=== PATIENT | female | born 1950 | race Caucasian/White ===

== ENCOUNTER → 2019-03-21 09:38 | Outpatient (CLI) | payer OTHER, SELFPAY ==
--- NOTE | ~2019-03-21 | DEXA_ITS ---
Bone Density Report Name: Jayda Lindsey Age: 69 Sex: Female Ethnicity: White Date of : 1950 Indication: postmenopausal; screening for osteoporosis; asthma or emphysema; hysterectomy; Referring Provider: JOSE DESIR Study: Bone densitometry was performed. Exam Date: March 21, 2019 Accession number: [id number] Bone Density: Region BMD T-score Z-score Classification AP Spine (L1-L4) 0.957 -0.8 1.1 Normal Femoral Neck (Left) 0.784 -0.6 1.0 Normal Total Hip (Left) 0.911 -0.3 1.1 Normal Femoral Neck (Right) 0.761 -0.8 0.8 Normal Total Hip (Right) 0.935 -0.1 1.3 Normal Total Hip Mean 0.923 -0.2 1.2 Normal World Health Organization criteria for BMD impression classify patients as: Normal (T-score at or above -1.0), Osteopenia (T-score between -1.0 and -2.5), or Osteoporosis (T-score at or below -2.5). 10-year Fracture Risk: FRAX not reported because: All T-scores for Spine Total, Hip Total, Femoral Neck at or above -1.0 Clinical Information Provided by Patient: Has used the following medications: Vitamin D, Calcium Has the following medical conditions: Asthma or Emphysema, Hysterectomy, STAGE 3 KIDNEY DISEASE Patient maximum height was 65 Menopause Age: 39 No regular weight bearing exercise Drinks caffeinated beverages Onset of menses at age 13 Number of children 1 Impression: The patient has normal bone mass. Discussion: BONE DENSITY IS ABOVE THE MINIMUM DESIRABLE LEVEL AT ALL SKELETAL SITES TESTED. This patient?s bone mineral density is above the minimum desirable level (T-score -1.0 or better) at all sites measured. The patient should follow a healthful lifestyle (good nutrition with adequate calcium and vitamin D, and appropriate weight-bearing exercise). Follow-Up: Consider repeating this study in 5 years or sooner if there is some new clinical indication. Reported by: RAFAEL on 03/21/2019 10:06:00 AM. Reviewed, dictated and finalized at location [facility]
== END ==
PROVIDERS: PCP Internal Medicine; Visit Provider Obstetrics & Gynecology
DX: Z78.0 Asymptomatic menopausal state (principal)
CPT/HCPCS: 77080

== ENCOUNTER → 2020-03-13 06:51 | Outpatient (CLI) | payer OTHER, SELFPAY ==
[2020-03-13 11:39] LABS: Influenza Control Positive
== END ==
PROVIDERS: PCP Internal Medicine; Visit Provider Nurse Practitioner
DX: R05 Cough (principal)
CPT/HCPCS: 87804

== ENCOUNTER → 2020-03-17 17:21 | Outpatient (CLI) | payer OTHER, SELFPAY ==
--- NOTE | ~2020-03-17 | MM_ITS ---
EXAMINATION: MM scrn dario implant BI w cole HISTORY: Screening mammogram TECHNIQUE: Craniocaudal and mediolateral oblique 3-D tomosynthesis images with implant displacement a nd synthetic 2-D images were generated. Craniocaudal and mediolateral oblique views of the breasts wi thout implant displacement were obtained using full field digital mammography. CAD analysis was submi tted and interpreted. COMPARISON: No prior mammogram is available for comparison at this institution. BREAST PARENCHYMAL COMPOSITION: There are scattered areas of fibroglandular density. FINDINGS: There is no evidence of suspicious mass, calcification, or architectural distortion to sugg est malignancy in either breast. IMPRESSION: 1. No mammographic evidence of malignancy. 2. Recommend routine screening mammography in one year. BI-RADS Category 1: Negative Reviewed, dictated and finalized at location A. K [employer]
== END ==
PROVIDERS: PCP Internal Medicine; Visit Provider Obstetrics & Gynecology
DX: Z12.31 Encounter for screening mammogram for malignant neoplasm of breast (principal)
CPT/HCPCS: 77063; 77067

== ENCOUNTER 2020-03-25 08:58 | Outpatient (CLI) | payer OTHER, SELFPAY ==
--- NOTE | 2020-03-25 11:30 | NEURO_ITS ---
Impression: # Complains of numbness of arms and legs. # Evolving bilateral Carpal Tunnel Syndrome. # No ulnar neuropathy. # Normal nerve conduction study otherwise in upper and lower extremities. # Normal needle/EMG exam without any neurogenic changes noted. # Clinical correlation recommended. Nerve Conduction Studies Anti Sensory Summary Table Stim Site NR Peak (ms) P-T Amp (?V) Site1 Site2 Delta-P (ms) Dist (cm) Bernard (m/s) Left Median Anti Sensory (2-3nd Digit) Wrist 3.6 22.7 Wrist 2-3nd Digit 3.6 14.0 39 Wrist 3.5 45.2 Wrist 2-3nd Digit 3.6 14.0 39 Right Median Anti Sensory (2-3nd Digit) Wrist 3.2 30.5 Wrist 2-3nd Digit 3.2 14.0 44 Wrist 3.2 19.1 Wrist 2-3nd Digit 3.2 14.0 44 Left Radial Anti Sensory (Base 1st Digit) Wrist 2.1 26.6 Wrist Base 1st Digit 2.1 0.0 Right Radial Anti Sensory (Base 1st Digit) Wrist 2.7 9.1 Wrist Base 1st Digit 2.7 0.0 Left Sup Fibular Anti Sensory (Ant Lat Mall) 14 cm 3.8 25.8 14 cm Ant Lat Mall 3.8 16.0 42 Right Sup Fibular Anti Sensory (Ant Lat Mall) 14 cm 3.6 17.1 14 cm Ant Lat Mall 3.6 16.0 44 Left Sural Anti Sensory (Lat Mall) Calf 3.8 14.3 Calf Lat Mall 3.8 16.0 42 Right Sural Anti Sensory (Lat Mall) Calf 3.7 19.6 Calf Lat Mall 3.7 16.0 43 Left Ulnar Anti Sensory (5th Digit) Wrist 2.7 62.3 Wrist 5th Digit 2.7 14.0 52 Right Ulnar Anti Sensory (5th Digit) Wrist 2.5 58.7 Wrist 5th Digit 2.5 14.0 56 Motor Summary Table Stim Site NR Onset (ms) O-P Amp (mV) Site1 Site2 Delta-0 (ms) Dist (cm) Bernard (m/s) Left Lateral Plantar Motor (ADM) Med Mall 4.9 2.4 Right Lateral Plantar Motor (ADM) Med Mall 4.6 0.4 Left Median Motor (Abd Poll Brev) Wrist 3.7 3.7 Elbow Wrist 5.1 29.0 57 Elbow 8.8 1.3 Right Median Motor (Abd Poll Brev) Wrist 3.5 6.1 Elbow Wrist 5.0 28.0 56 Elbow 8.5 3.6 Left Peroneal Motor (Vastus Med) Ankle 4.4 2.2 Popit Ankle 8.1 38.0 47 Popit 12.5 1.5 Right Peroneal Motor (Vastus Med) Ankle 4.7 3.9 Popit Ankle 7.2 38.0 53 Popit 11.9 2.6 Left Tibial Motor Run #1 (Abd [place] Brev) Ankle 4.6 2.9 Knee Ankle 9.7 40.0 41 Knee 14.3 1.8 Right Tibial Motor (Abd Santa Brev) Ankle 4.8 5.7 Knee Ankle 9.0 39.0 43 Knee 13.8 3.4 Left Ulnar Motor (Abd Dig Minimi) Wrist 2.5 7.1 A Elbow Wrist 4.8 29.0 60 A Elbow 7.3 6.2 Right Ulnar Motor (Abd Dig Minimi) Wrist 2.5 7.4 A Elbow Wrist 4.9 29.0 59 A Elbow 7.4 6.7 F Wave Studies NR F-Lat (ms) L-R F-Lat (ms) Left Median (Mrkrs) (Abd Poll Brev) 28.65 0.99 Right Median (Mrkrs) (Abd Poll Brev) 27.66 0.99 Left Peroneal (Mrkrs) (EDB) 53.81 0.20 Right Peroneal (Mrkrs) (EDB) 53.60 0.20 Left Tibial (Mrkrs) (Abd Hallucis) 53.08 0.95 Right Tibial (Mrkrs) (Abd Hallucis) 54.03 0.95 Left Ulnar (Mrkrs) (Abd Dig Min) 27.89 0.97 Right Ulnar (Mrkrs) (Abd Dig Min) 26.93 0.97 EMG Side Muscle Nerve Root Ins Act Fibs Amp Dur Recrt Comment Right 1stDorInt Ulnar C8-T1 Nml Nml Nml Nml Nml Right Ext Indicis Radial (Post Int) C7-8 Nml Nml Nml Nml Nml Right Ext Digitorum Radial (Post Int) C7-8 Nml Nml Nml Nml Nml
== END 2020-03-25 08:59 | disposition home or self-care (01) ==
PROVIDERS: PCP Internal Medicine; Visit Provider Nurse Practitioner
DX: G62.9 Polyneuropathy, unspecified (principal)
CPT/HCPCS: 95886; 95913

== ENCOUNTER 2020-04-20 13:04 | Outpatient (CLI) | payer OTHER, SELFPAY ==
--- NOTE | ~2020-04-20 | MR_ITS ---
EXAMINATION: MR thoracic spine wo con EXAM DATE: 04/20/2020 14:13 INDICATION: Paresthesia of skin. TECHNIQUE: Multi-sequential, multiplanar MR images of the thoracic spine were obtained without contra st. Sagittal T1, T2, T2 fat saturation, axial T2 weighted images reviewed. There is no prior study for comparison. FINDINGS: The spinal cord signal intensity and intrinsic morphology is normal. There is mild diffuse thoracic disc disease, mild to moderate thoracic arthropathy. Minimal disc bulges and protrusions wit hout central canal stenosis. There is mild to moderate right neural foraminal stenosis at T3-4 and bi lateral neural foraminal stenosis at T1-2. These are the most narrowed thoracic levels. There are no suspicious marrow signal abnormalities. Paraspinal soft tissue is unremarkable. IMPRESSION: Mild to moderate thoracic spondylosis. Reviewed, dictated and finalized at location A.
--- NOTE | ~2020-04-20 | MR_ITS ---
EXAMINATION: MR lumbar spine wo con EXAM DATE: 04/20/2020 14:13 INDICATION: Skin paresthesia. Numbness in hands and feet. Neuropathy. TECHNIQUE: Multi-sequential, multiplanar MR images of the lumbar spine were obtained without contrast . Sagittal T1, T2, T2 fat saturation images. Axial T2 weighted images. Correlation is made to lum r x-ray 11/02/2016. FINDINGS: There is 2 mm anterolisthesis L4 on L5. The vertebral bodies are otherwise aligned. Mild di sc disease L2-L5. The conus medullaris terminates at the L1/2 level and has normal signal intensity a nd morphology. There are no suspicious marrow signal abnormalities. Several small left renal cyst. Paraspinal soft tissue otherwise unremarkable. Level by level evaluation: T12-L1: Disc does not extend beyond the endplate margin. Facet arthropathy: Mild. Neural foraminal stenosis: No stenosis. Central canal stenosis: No stenosis. L1-L2: Disc does not extend beyond the endplate margin. Facet arthropathy: Mild. Neural foraminal stenosis: No stenosis. Central canal stenosis: No stenosis. L2-L3: There is a mild diffuse disc bulge. Facet arthropathy: Mild to moderate. Neural foraminal stenosis: Mild bilateral. Central canal stenosis: No stenosis. L3-L4: There is a mild diffuse disc bulge. Facet arthropathy: Mild to moderate. Neural foraminal stenosis: Mild bilateral. Central canal stenosis: No stenosis. L4-L5: There is a mild to moderate diffuse disc bulge, annular fissure. Facet arthropathy: Moderate. Neural foraminal stenosis: Mild to moderate left, mild right. Central canal stenosis: Mild to moderate. L5-S1: Disc does not extend beyond the endplate margin. Facet arthropathy: Mild to moderate right, mild left. Neural foraminal stenosis: No stenosis. Central canal stenosis: No stenosis. IMPRESSION: 1. Mild to moderate lumbar spondylosis, left L4-5 neural foramina most narrowed. Reviewed, dictated and finalized at location A. IMPRESSION: 1. Mild to moderate lumbar spondylosis, left L4-5 neural foramina most narrowe d.
== END 2020-04-20 13:05 | disposition home or self-care (01) ==
PROVIDERS: PCP Internal Medicine; Visit Provider Psychiatry & Neurology Neurology
DX: R20.2 Paresthesia of skin (principal); M47.894 Other spondylosis, thoracic region; M47.896 Other spondylosis, lumbar region
CPT/HCPCS: 72146; 72148

== ENCOUNTER 2020-05-14 10:40 | Outpatient (CLI) | payer OTHER, SELFPAY ==
--- NOTE | 2020-05-14 | ECG_ITS ---
Measurements Intervals [place] Rate: 61 P: 66 PA: 173 QRS: 38 QRSD: 89 T: 44 QT: 415 QTc: 420 Interpretive Statements SINUS RHYTHM POSSIBLE LEFT ATRIAL ENLARGEMENT BORDERLINE ST ABNORMALITY- ANTEROLAT/INF LEADS BASELINE ARTIFACT- II, III, AVL, AVF BORDERLINE ECG Electronically Signed On 05-14-2020 11:45:15 CDT by Hkaan Sahni D.O.
[2020-05-14 11:39] LABS: Potassium 3.8 mmol/L (3.4-5.0)
[2020-05-14 11:49] LABS: Anion Gap 8 mmol/L (8-16); Blood Urea Nitrogen 22 mg/dL (7-17); Calcium 9.7 mg/dL (8.4-10.2); Carbon Dioxide 25 mmol/L (22-30); Chloride 105 mmol/L (98-107); Estimated Glomerular Filt Rate 49; Glucose 115 mg/dL (65-105); Sodium 138 mmol/L (137-145)
== END 2020-05-14 10:41 | disposition home or self-care (01) ==
PROVIDERS: PCP Internal Medicine; Visit Provider Anesthesiology
DX: N28.9 Disorder of kidney and ureter, unspecified (principal); Z01.818 Encounter for other preprocedural examination; R94.31 Abnormal electrocardiogram [ECG] [EKG]
CPT/HCPCS: 36415; 80048; 93005

== ENCOUNTER → 2020-05-19 07:14 | Outpatient (CLI) | payer OTHER, SELFPAY ==
[2020-05-19 20:44] LABS: SARS-CoV-2 RNA PCR Negative
== END ==
PROVIDERS: PCP Internal Medicine; Visit Provider Podiatrist Foot & Ankle Surgery
DX: Z01.812 Encounter for preprocedural laboratory examination (principal); Z20.822 Contact with and (suspected) exposure to COVID-19
CPT/HCPCS: C9803; U0003; U0005

== ENCOUNTER 2020-05-22 00:33 | Day surgery (SDC) | payer OTHER, SELFPAY ==
[2020-05-13 12:23] VITALS: BMI 28.0
--- NOTE | 2020-05-21 12:36 | WPDANESEPP ---
Anes - Eval Pre Procedure Procedure: Operation Date: 05/22/20 07:30 Proposed Procedures p Johnathan Phalangeal Osteotomy Bilateral Hallux - Umer Pineda JR, MD Date/Time: 05/21/20 12:36 Pre Op Diagnosis: hallux abductis bilat foot Patient Data Age: 70 Gender: F Height: 1.63 m Weight: 74 kg Allergies Allergy/AdvReac Type Severity Reaction Status Date / Time Sulfa (Sulfonamide Allergy Severe Nausea and Verified 05/13/20 12:20 Antibiotics) Vomiting acetaminophen [From Vicodin] Allergy Unknown Verified 05/13/20 12:20 fluticasone Allergy Unknown Verified 05/13/20 12:20 [From Advair Diskus] hydrocodone [From Vicodin] Allergy Unknown Verified 05/13/20 12:20 oxycodone [From OxyContin] Allergy Itching Verified 05/13/20 12:20 salmeterol Allergy Swelling Verified 05/13/20 12:20 [From Advair Diskus] of Lip/Tongue/Throat tiotropium Allergy Swelling Verified 05/13/20 12:20 [From Spiriva with of HandiHaler] Lip/Tongue/Throat Home Medications Medication Instructions Recorded Confirmed Type cetirizine 10 mg tablet 5 mg PO DAILY PRN 12/25/18 05/13/20 History inhalational spacing device #1 each 12/25/18 03/12/20 History atenolol 50 mg tablet 50 mg PO BID tablet 09/05/19 05/13/20 History esomeprazole magnesium 40 mg 40 mg PO .QOD cap 09/05/19 05/13/20 History capsule,delayed release losartan 100 mg tablet 50 mg PO DAILY tablet 09/05/19 05/13/20 History atorvastatin 10 mg tablet 10 mg PO DAILY #90 tablet 09/18/19 05/13/20 Rx gabapentin 100 mg capsule 100 mg PO BID #120 cap 12/24/19 05/13/20 Rx budesonide-formoterol HFA 160 See Rx Instructions .ROUTE 01/17/20 05/13/20 Rx mcg-4.5 mcg/actuation aerosol .COMPLEX #30.6 gram inhaler albuterol sulfate 90 mcg/actuation See Rx Instructions .ROUTE 02/03/20 05/13/20 Rx aerosol inhaler .COMPLEX #25.5 g verapamil 40 mg tablet 90 mg PO DAILY tablet 03/12/20 05/13/20 History montelukast 10 mg tablet 10 mg PO DAILY #90 tablet 03/13/20 05/13/20 Rx Patient hx anesthesia problems: none Family hx anesthesia problems: none PMFSH Past Medical History Medical History Asthma Bilateral artificial lens implant Bone spur removed Chicken pox Chronic bronchitis CKD (chronic kidney disease) stage 3, GFR 30-59 ml/min Decreased GFR Depression Encounter for gynecological examination (general) (routine) without abnormal findings Encounter for preventative adult health care examination Encounter for screening for malignant neoplasm of rectum (03/07/17) Essential hypertension Heart disease Heart murmur Hemorrhoid HTN (hypertension) Hypercholesterolemia Lung disease Menopause Mild episode of recurrent major depressive disorder Mumps Neuropathy Pelvic pain in female Sinus tachycardia Tachycardia Vitamin D deficiency Surgical History Surgical History (Updated 03/12/20 @ 13:11 by Amanda Yoon [facility]) H/O right knee surgery History of breast augmentation History of carpal tunnel surgery right History of cataract surgery History of hysterectomy Family History Family History Father Hypertension Cerebrovascular accident Asthma Family history of elevated blood lipids Family history of cardiovascular disease Acute myocardial infarction Sibling Cerebrovascular accident Family history of cardiovascular disease Mother Carcinoma of colon Family history of malignant neoplasm of ovary Patient's mother is Family history of rheumatic fever Grandparent Family history of type 2 diabetes mellitus Social History Social History Smoking status: Never smoker Alcohol intake: current Drinks per week: 3 Gender identity (if verbalized by the patient): Female Spiritual care concerns: No Exam Day of Procedure 05/21/20 12:36
--- NOTE | ~2020-05-22 | XR_ITS ---
EXAMINATION: XR surgery orthopedic EXAM DATE: 05/22/2020 08:29 INDICATION: Bilateral hallux. Phalangeal osteotomy. TECHNIQUE: Fluoroscopy used during XR surgery orthopedic performed by Dr. Umer Pineda JR MD. Radiologist was not present for the imaging or procedure. Total fluoroscopic time of 7 seconds. The DAP for this procedure was 0.5 cGycm2. A total of 2 images obtained for the exam. There is no prio r study for comparison. FINDINGS: Surgical changes from 1st proximal phalangeal osteotomies, corrective surgery for hallux v algus deformities. It appears that there is one frontal image available from each 1st toe (bilateral procedure). No side markers. Overlying soft tissue surgical defect. 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 Correlate with procedure note. IMPRESSION: Fluoroscopy used during bilateral 1st proximal phalangeal osteotomies. Reviewed, dictated and finalized at location A. IMPRESSION: Fluoroscopy used during bilateral 1st proximal phalangeal osteotomi es.
[2020-05-22 06:06] VITALS: BP 132/59; PULSE 68; RESP 18; TEMP 36.4; O2SAT 100
[2020-05-22] MEDS: LACTATED RINGERS 1,000 ML 30 ML IV CONT ×2 (06:30→08:39)
--- NOTE | 2020-05-22 07:04 | WPDANESEPPF ---
Anes - Initial Pre Proc Eval Procedure: Operation Date: 05/22/20 07:30 Proposed Procedures p Johnathan Phalangeal Osteotomy Bilateral Hallux - Umer Pineda JR, MD Date/Time: 05/22/20 07:04 Surgeon: Umer Pineda JR, MD Pre Op Diagnosis: hallux abductis bilat foot Patient Data Age: 70 Gender: F Height: 5 ft 4 in Weight: 70 kg Last Vital Signs Temp 36.4 C 05/22/20 06:06 Pulse 68 05/22/20 06:06 Resp 18 05/22/20 06:06 BP 132/59 L 05/22/20 06:06 Pulse Ox 100 05/22/20 06:06 Allergies Allergy/AdvReac Type Severity Reaction Status Date / Time Sulfa (Sulfonamide Allergy Severe Nausea and Verified 05/22/20 06:37 Antibiotics) Vomiting fluticasone Allergy Unknown Verified 05/22/20 06:37 [From Advair Diskus] hydrocodone [From Vicodin] Allergy Unknown Verified 05/22/20 06:37 oxycodone [From OxyContin] Allergy Itching Verified 05/22/20 06:37 salmeterol Allergy Swelling Verified 05/22/20 06:37 [From Advair Diskus] of Lip/Tongue/Throat tiotropium Allergy Swelling Verified 05/22/20 06:37 [From Spiriva with of HandiHaler] Lip/Tongue/Throat Home Medications Medication Instructions Recorded Confirmed Type cetirizine 10 mg tablet 5 mg PO DAILY PRN 12/25/18 05/22/20 History inhalational spacing device #1 each 12/25/18 05/22/20 History atenolol 50 mg tablet 50 mg PO BID tablet 09/05/19 05/22/20 History esomeprazole magnesium 40 mg 40 mg PO .QOD cap 09/05/19 05/22/20 History capsule,delayed release losartan 100 mg tablet 50 mg PO DAILY tablet 09/05/19 05/22/20 History atorvastatin 10 mg tablet 10 mg PO DAILY #90 tablet 09/18/19 05/22/20 Rx gabapentin 100 mg capsule 100 mg PO BID #120 cap 12/24/19 05/22/20 Rx budesonide-formoterol HFA 160 See Rx Instructions .ROUTE 01/17/20 05/22/20 Rx mcg-4.5 mcg/actuation aerosol .COMPLEX #30.6 gram inhaler albuterol sulfate 90 mcg/actuation See Rx Instructions .ROUTE 02/03/20 05/22/20 Rx aerosol inhaler .COMPLEX #25.5 g verapamil 40 mg tablet 90 mg PO DAILY tablet 03/12/20 05/22/20 History montelukast 10 mg tablet 10 mg PO DAILY #90 tablet 03/13/20 05/22/20 Rx Patient hx anesthesia problems: none Family hx anesthesia problems: none PMFSH Past Medical History Medical History Asthma Bilateral artificial lens implant Bone spur removed Chicken pox Chronic bronchitis CKD (chronic kidney disease) stage 3, GFR 30-59 ml/min Decreased GFR Depression Encounter for gynecological examination (general) (routine) without abnormal findings Encounter for preventative adult health care examination Encounter for screening for malignant neoplasm of rectum (03/07/17) Essential hypertension Heart disease Heart murmur Hemorrhoid HTN (hypertension) Hypercholesterolemia Lung disease Menopause Mild episode of recurrent major depressive disorder Mumps Neuropathy Pelvic pain in female Sinus tachycardia Tachycardia Vitamin D deficiency Surgical History Surgical History H/O right knee surgery History of breast augmentation History of carpal tunnel surgery right History of cataract surgery History of hysterectomy Family History Family History Father Hypertension Cerebrovascular accident Asthma Family history of elevated blood lipids Family history of cardiovascular disease Acute myocardial infarction Sibling Cerebrovascular accident Family history of cardiovascular disease Mother Carcinoma of colon Family history of malignant neoplasm of ovary Patient's mother is Family history of rheumatic fever Grandparent Family history of type 2 diabetes mellitus Social History Social History Smoking status: Never smoker Alcohol intake: current Drinks per week: 3 Living arrangements: alone G
--- NOTE | 2020-05-22 07:12 | WPDHPUPDATE1 ---
History and Physical Update Update Date/Time: 05/22/20 07:12 History and Physical has been reviewed, including an updated exam of the patient. There are NO changes in the patient's condition. Risks, benefits, and alternatives have been discussed and questions answered. Patient agrees to proceed with procedure.
[2020-05-22] MEDS: BUPIVACAINE HCL 0.5% PF 30 ML VIAL INFILTRATE (07:30)
[2020-05-22] MEDS: LIDOCAINE HCL 2% LOCAL INJ 20 ML VIAL 10 ML INFILTRATE (07:30)
[2020-05-22] MEDS: ceFAZolin 2 GM/D5W 50 ML 2 GM/50 ML BAG IVPB (07:40)
[2020-05-22 08:39] VITALS: BP 114/93; PULSE 68; RESP 14; O2SAT 100
--- NOTE | 2020-05-22 08:40 | PM.PROC ---
Procedure Note - Detailed Date of procedure: 05/22/20 Pre-op diagnosis: hallux abductis bilat foot Hallux abductus bilateral foot Post-op diagnosis: same Procedure performed: Johnathan Phalangeal osteotomy right hallux Implants: Two 8mm jenny compression susan Anesthesia: MAC and local Surgeon: Umer Pineda JR, DPM Estimated blood loss (mL): 1 Drains: No Packing: No Pathology: none sent Complications: No immediate complications Condition: stable Disposition: same day Findings: Under mild sedation, the patient was brought in to the operating room, placed on the operating table in the supine position. A pneumatic ankle tourniquet was placed about the patient's right and ankle. Following monitored anesthesia care, local anesthesia was obtained about the right and left foot foot utilizing 20 mL of a 1:1 mixture of 2% Lidocaine plain and 0.5% Marcaine plane as a Ashraf block. The foot was then scrubbed, prepped, and draped in the usual aseptic manner. An Esmarch bandage was then used to exsanguinate the patient's right foot and the pneumatic ankle tourniquet was then inflated. An incision was made along the medial aspect of the right hallux. Dissection was continued to the subcutaneous tissues all bleeders were cauterized as necessary. Attention was then directed to the proximal phalanx medially where a small 2 mm wedge resection of bone was taken from the proximal phalanx. After the wedge resection was performed, an 8 mm compression staple was placed from medial to lateral across the osteotomy site with excellent compression noted. After this osteotomy was performed, the hallux was noted to be in a rectus position as well as significant reduction of the first intermetatarsal angle was noted with live fluoroscopic imaging. Next, the periosteum and capsular structures were reapproximated with 3-0 Vicryl with simple interrupted suture technique. Next, the subcutaneous structures were reapproximated and coapted utilizing 4-0 Vicryl. Next, the skin was reapproximated and coapted utilizing 4-0 Monocryl in a running subcuticular suture fashion technique. The exact procedure was duplicated for the left hallux. Upon completion of the procedure, the incision was dressed with Steri-Strips, Adaptic, 4x4s, Kerlix, and Coban. The pneumatic ankle tourniquets were then deflated and a prompt hyperemic response was noted to all digits of the right and left foot. The surgical shoe was then applied. The patient did very well with the procedure and the anesthesia. She was transferred to the recovery room with vital signs stable and vascular status intact to all toes of the right and left foot. Following a period of postoperative monitoring, the patient will be discharged home on the following written and oral postoperative instructions: 1. The patient should keep the dressing clean, dry, and intact. Use a cast protector bag with showers. 2. The patient will be protected weightbearing with surgical shoe. 3. Patient should ice and elevate both feet when at rest. 4. The patient is to contact Dr. Pineda for all postop care and if any problems arise. 5. Prescriptions were written for Percocet 5/325 dispensed 40 to be taken 1 p.o. q.4-6 hours as needed for severe pain.
[2020-05-22 09:00] VITALS: BP 131/57; PULSE 66; RESP 20
[2020-05-22 09:30] VITALS: BP 150/60; PULSE 72; RESP 20
== END 2020-05-22 09:45 | disposition home or self-care (01) ==
PROVIDERS: PCP Internal Medicine; Visit Provider Podiatrist Foot & Ankle Surgery
PROC: (CPT 28750; principal; 2020-05-22 07:30)
DX: M20.11 Hallux valgus (acquired), right foot (principal); M20.12 Hallux valgus (acquired), left foot; Z79.51 Long term (current) use of inhaled steroids; J45.909 Unspecified asthma, uncomplicated; F32.9 Major depressive disorder, single episode, unspecified; I13.10 Hypertensive heart and chronic kidney disease without heart failure, with stage 1 through stage 4 chronic kidney disease, or unspecified chronic kidney disease; N18.30 Chronic kidney disease, stage 3 unspecified; E55.9 Vitamin D deficiency, unspecified; R01.1 Cardiac murmur, unspecified; E78.00 Pure hypercholesterolemia, unspecified; G62.9 Polyneuropathy, unspecified; R00.0 Tachycardia, unspecified
CPT/HCPCS: 28298; 36415; 80048; 93005; C1713; C9803; J0131; J0690; J2704; J3010; J7120; U0003; U0005

== ENCOUNTER → 2020-12-16 11:52 | Outpatient (CLI) | payer OTHER, SELFPAY ==
--- NOTE | ~2020-12-16 | XR_ITS ---
EXAMINATION: [id number] EXAM DATE: 12/16/2020 12:20 INDICATION: Cervical pain, tingling down right arm. TECHNIQUE: Cervical spine frontal, lateral, open-mouth odontoid projections. There is no prior stud y for comparison. FINDINGS: There is moderate disc disease at C5-6, mild to moderate at C4-5 and C6-7 and C7-T1. There is 2-3 mm anterolisthesis C7 on T1. The vertebral bodies are otherwise aligned. The odontoid process is intact. The lateral masses of C1 line up with C2. There is moderate to severe cervical facet and uncovertebral joint arthropathy. There are no acute fractures identified. Lung apices are clear. IMPRESSION: Moderate to severe cervical arthropathy causing neural foraminal stenosis. Reviewed, dictated and finalized at location A. RELINER IMPRESSION: Moderate to severe cervical arthropathy causing neural foraminal s tenosis.
== END ==
PROVIDERS: PCP Internal Medicine; Visit Provider Clinical Nurse Specialist
DX: M54.2 Cervicalgia (principal)
CPT/HCPCS: 72040

== ENCOUNTER 2021-02-26 12:42 | Outpatient (CLI) | payer MEDICARE, OTHER, SELFPAY ==
--- NOTE | 2021-02-26 14:22 | WPDPFTINT ---
PFT Procedure Performed PFT Procedure Performed Spirometry with Pre/Post Bronchodilator Plethysmography (Lung Vol) Diffusing Cap (DLCO) Flow Vol Loop PFT Interpretation This is a pulmonary function test with pre and post-bronchodilator spirometry, plethysmography and diffusing capacity. The test was performed and results interpreted in accordance with the 2019 and 2005 ATS/ERS Task Force guidelines respectively using the Global Lung Function Initiative-2012 reference equations. Patient demonstrated good effort and cooperation. Reproducibility criteria were met. The quality of the pre bronchodilator spirometry maneuver was Grade A and post bronchodilator spirometry maneuver was Grade A. Findings: Spirometry: The expiratory flow tracing demonstrates the mid expiratory plateau in airflow creating a convex inflection referred to as the knee pattern. This was reproducible on 2 of 3 pre bronchodilator and all 3 post bronchodilator efforts. The contour the inspiratory flow tracing is normal. the pre bronchodilator FVC is 3.70 L, 128% predicted. The pre bronchodilator FEV1 is 2.45 L, 109% predicted. The FEV1: FVC ratio 66%. The post bronchodilator FVC is 3.56 L, representing a 4% decrease. The post bronchodilator FEV1 is 2.38 L, representing a 3% decrease. The post bronchodilator FEV1: FVC ratio 67%. Plethysmography: The total lung capacity is 5.38 L, 106% predicted. The functional residual capacity is 2.43 L, 84% predicted. The residual volume is 1.68 L, 77% predicted. Diffusion capacity: The diffusion capacity unadjusted for hemoglobin is 14.4, 70% predicted. The diffusing capacity adjusted for alveolar volume is 2.89, 67% predicted. In comparison to previous pulmonary function test on 09/10/2018 the convex inflection referred to as the knee pattern is present. The post bronchodilator FVC is unchanged from 3.41 L to 3.56 L. The post bronchodilator FEV1 is unchanged from 2.36 L to 2.38 L. The total lung capacity is unchanged from 5.79 L to 5.38 L. Functional residual capacity is decreased from 3.06 L to 2.43 L. The residual volume is decreased from 2.29 L to 1.68 L. The diffusing capacity unadjusted for hemoglobin is decreased from 17.1 to 14.4. The diffusing capacity adjusted for alveolar volume is decreased from 3.80 to 2.89 Impression: The expiratory flow tracing demonstrates a reproducible mid expiratory plateau in airflow creating a convex inflection referred to as the knee pattern in 2 of 3 pre bronchodilator and 3 of 3 post bronchodilator efforts. This pattern can be a normal variant or pathologic and has been attributed to a choke point section of the bronchial tree. The normal variant is more common in younger female patients, decreases with age and is more pronounced in the post bronchodilator efforts. The pattern has also been described with kyphosis, kyphoscoliosis, central obstructing mass, and post lung transplantation. Clinical correlation is recommended. There is a mild obstructive abnormality with a normal FEV1 and without significant improvement after inhaling a single dose of albuterol. the lung volumes are normal. The diffusing capacity unadjusted for hemoglobin is normal. The diffusing capacity adjusted for alveolar volume is mildly decreased. In comparison to previous pulmonary function test on 09/10/2018 there has been a greater than anticipated time dependent decrease in the functional residual capacity, residual volume, diffusing capacity on adjusted for hemoglobin and the diffusing capacity adjusted for alveolar volume with no significant change in the post bronchodilator FVC, post bronchodilator FEV1 and total lung capacity. Clinical correlation is recommended.
== END 2021-02-26 12:43 | disposition home or self-care (01) ==
PROVIDERS: PCP Internal Medicine; Visit Provider Physician Assistant
DX: J45.909 Unspecified asthma, uncomplicated (principal); R94.2 Abnormal results of pulmonary function studies
CPT/HCPCS: 94060; 94726; 94729

== ENCOUNTER → 2021-03-12 15:24 | Outpatient (CLI) | payer MEDICARE, SELFPAY ==
--- NOTE | ~2021-03-12 | XR_ITS ---
XR chest 2V DATE: 03/12/2021 15:39 INDICATION: Shortness of breath TECHNIQUE: 2 views COMPARISON: 08/15/2018 2 view chest FINDINGS: There is bilateral hyperinflation with relative flattening the diaphragm, suggesting obstru ctive airways disease. No pulmonary infiltrate or consolidation, pleural effusion or pulmonary vascul ar congestion or pneumothorax is detected. Normal heart size. Aortic arch calcification. No hilar or mediastinal enlargement. Diffuse osteopenia. IMPRESSION: Bilateral hyperinflation consistent with obstructive airways disease Aortic arch calcification No active cardiopulmonary disease or significant change since 08/15/2018 Reviewed, dictated and finalized at location B. ENER IMPRESSION: Bilateral hyperinflation consistent with obstructive airways diseas e Aortic arch calcification No active cardiopulmonary disease or significant change since 08/15/2018
== END ==
PROVIDERS: PCP Physician Assistant; Visit Provider Physician Assistant
DX: R06.02 Shortness of breath (principal); I70.0 Atherosclerosis of aorta
CPT/HCPCS: 71046

== ENCOUNTER → 2021-04-30 11:05 | Outpatient (CLI) | payer MEDICARE, SELFPAY ==
--- NOTE | ~2021-04-30 | MM_ITS ---
EXAMINATION: MM scrn dario implant BI w cole HISTORY: Screening mammogram TECHNIQUE: Craniocaudal and mediolateral oblique 3-D tomosynthesis images with implant displacement a nd synthetic 2-D images were generated. Craniocaudal and mediolateral oblique views of the breasts wi thout implant displacement were obtained using full field digital mammography. CAD analysis was submi tted and interpreted. COMPARISON: 03/17/2020 BREAST PARENCHYMAL COMPOSITION: There are scattered areas of fibroglandular density. FINDINGS: There is no evidence of suspicious mass, calcification, or architectural distortion to sugg est malignancy in either breast. There has been no suspicious interval change. IMPRESSION: 1. No mammographic evidence of malignancy. 2. Recommend routine screening mammography in one year. BI-RADS Category 1: Negative Reviewed, dictated and finalized at location A.
== END ==
PROVIDERS: PCP Internal Medicine; Visit Provider Obstetrics & Gynecology
DX: Z12.31 Encounter for screening mammogram for malignant neoplasm of breast (principal)
CPT/HCPCS: 77063; 77067

== ENCOUNTER → 2021-07-09 11:02 | Outpatient (CLI) | payer MEDICARE, SELFPAY ==
--- NOTE | ~2021-07-09 | CT_ITS ---
EXAMINATION:CT diagnostic chest wo con DATE: 07/09/2021 11:19 INDICATION: Unspecified asthma, uncomplicated. Chest pain and shortness of breath and cough. TECHNIQUE: Computed tomography (CT) of the chest was performed without intravenous contrast. Automate d exposure control and iterative reconstruction technique were employed. The dose-length product (DLP ) was 291.86 mGy-cm. COMPARISON: CT abdomen and pelvis 03/04/2017 FINDINGS: There is mild scarring at the lung apices. There are two 4 mm nodules in left upper lobe, l ikely benign. There is a 4 mm groundglass nodule in left lower lobe, likely benign. A calcified right lung nodule and calcified right hilar lymph nodes are consistent with old granulomatous disease. No pleural effusion. The heart size is normal. No pericardial effusion. There are bilateral breast impla nts. There is mild thoracic spondylosis. IMPRESSION: 1. No etiology for the patient's symptoms. Reviewed, dictated and finalized at location A.
== END ==
PROVIDERS: PCP Internal Medicine; Visit Provider Physician Assistant
DX: J45.909 Unspecified asthma, uncomplicated (principal); R06.02 Shortness of breath
CPT/HCPCS: 71250

== ENCOUNTER 2021-09-20 07:35 | Outpatient (CLI) | payer MEDICARE, OTHER, SELFPAY ==
--- NOTE | 2021-10-05 22:55 | WPDHOMESLEEP ---
Sleep Study - Home Unattended Date of Study: 09/20/21 Ordering Provider: ALEXANDRA Gross Interpreting Provider: Belen Chiang, DO Home Sleep Study Type: Apnea Link Air Height: 1.63 m Weight: 77.111 kg Body Mass Index: 29.2 Neck Circumference (inches): 14 [place]: 4 Reason for Sleep Study Daytime hypersomnia Sleep History The patient is a 71-year-old female with hypertension, asthma, hyperlipidemia, peripheral neuropathy and GERD that had a sleep study ordered by the Pulmonary office for evaluation of sleep apnea. The patient is a retired [employer] care. The patient rarely awakens from sleep short of breath. She occasionally awakens at night with heartburn, belching or cough. She denies snoring loud enough that others complain. He rarely wakes up gasping for air throughout the night. She occasionally has breathing problems at night observed by herself or others. She denies sweating excessively at night. She occasionally has irregular heartbeats during the night. She occasionally falls asleep during the day but never while driving. She denies sleep paralysis, cataplexy and hypnagogic / hypnopompic hallucinations. He denies feeling afraid of going to sleep. She rarely has nightmares. She occasionally remembers her dreams. She denies having thoughts racing through her mind. She occasionally feels sad or depressed. She occasionally has anxiety. She occasionally has muscular tension. She rarely notices parts of her body jerk. She denies kicking during the night. She frequently has crawling and aching feelings in her legs and frequently has leg pain during the night. She occasionally grinds her teeth during sleep and occasionally awakens with morning jaw pain. She is constantly bothered by pain during the day but never awakened by pain during the night. She occasionally wakes up feeling stiff in the morning. She occasionally wakes up with sore achy muscles. She constantly wakes up with pain in the neck, spine or other joints. She goes to bed between 9-10 p.m. on both weekdays and weekends. She is able to fall asleep immediately. She wakes up at most 2 times throughout the night to urinate. She is able to fall asleep within 30 minutes if she uses her inhaler but hours if she does. She wakes up between 6-8 a.m. on both weekdays and weekends. She typically gets 7-9 hours of sleep per night. She will stay in bed for 15 minutes after waking up in the morning. She does not consume any caffeinated beverages within 2 hours of bedtime. She does not engage in physical exercise before bedtime. She will read and watch television before falling asleep. She will take naps in the afternoon or the evening and they are refreshing. She drinks 1 cup of coffee every morning as well as tea or Pepsi occasionally. She will drink a few beers per month. She denies tobacco and recreational drug use. [facility] Past Medical History Medical History Asthma Bilateral artificial lens implant Bone spur removed Chicken pox Chronic bronchitis CKD (chronic kidney disease) stage 3, GFR 30-59 ml/min Decreased GFR Depression Encounter for gynecological examination (general) (routine) without abnormal findings Encounter for preventative adult health care examination Encounter for screening for malignant neoplasm of rectum (03/07/17) Essential hypertension Heart disease Heart murmur Hemorrhoid HTN (hypertension) Hypercholesterolemia Lung disease Menopause Mild episode of recurrent major depressive disorder Mumps Neuropathy Pelvic pain in female Sinus tachycardia Tachycardia Vitamin D deficiency Surgical History Surgical History H/O right knee surgery History of breast augmentation History of carpal tunnel surgery right History of cataract surgery History of hysterectomy Family History Family History (Reviewed 09/08
[2021-10-05 23:07] VITALS: BMI 29.2
== END 2021-09-21 13:47 | disposition home or self-care (01) ==
PROVIDERS: PCP Internal Medicine; Visit Provider Physician Assistant
DX: G47.10 Hypersomnia, unspecified (principal)
CPT/HCPCS: 95806

== ENCOUNTER → 2022-05-02 13:15 | Outpatient (CLI) | payer MEDICARE, SELFPAY ==
--- NOTE | ~2022-05-02 | MM_ITS ---
EXAMINATION: MM scrn dario implant BI w cole HISTORY: Screening mammogram TECHNIQUE: Craniocaudal and mediolateral oblique 3-D tomosynthesis images with implant displacement a nd synthetic 2-D images were generated. Craniocaudal and mediolateral oblique views of the breasts wi thout implant displacement were obtained using full field digital mammography. CAD analysis was submi tted and interpreted. COMPARISON: Comparison to multiple prior studies sequentially, with oldest reviewed study dated 10/2020. BREAST PARENCHYMAL COMPOSITION: There are scattered areas of fibroglandular density. FINDINGS: There is no evidence of suspicious mass, calcification, or architectural distortion to sugg est malignancy in either breast. There has been no suspicious interval change. IMPRESSION: 1. No mammographic evidence of malignancy. 2. Recommend routine screening mammography in one year. BI-RADS Category 1: Negative Reviewed, dictated and finalized at location A.
== END ==
PROVIDERS: PCP Obstetrics & Gynecology; Visit Provider Obstetrics & Gynecology
DX: Z12.31 Encounter for screening mammogram for malignant neoplasm of breast (principal)
CPT/HCPCS: 77063; 77067

== ENCOUNTER → 2022-07-07 12:01 | Outpatient (CLI) | payer MEDICARE, OTHER, SELFPAY ==
--- NOTE | ~2022-07-07 | XR_ITS ---
Right Knee Technique: AP, lateral, and sunrise views were obtained. Clinical History: Pain Findings: No fracture or dislocation is seen. There is moderate degenerative change of the medial com partment with mild medial compartment narrowing. There is minimal patellar spurring. Soft tissues are unremarkable. No joint effusion is seen. Impression: Moderate degenerative change of the medial compartment, as detailed above. Reviewed, dictated and finalized at location M. Impression: Moderate degenerative change of the medial compartment, as detailed above.
== END ==
PROVIDERS: PCP Internal Medicine; Visit Provider Clinical Nurse Specialist
DX: M17.11 Unilateral primary osteoarthritis, right knee (principal)
CPT/HCPCS: 73562

== ENCOUNTER 2023-02-15 01:43 | Day surgery (SDC) | payer MEDICARE, OTHER, SELFPAY ==
[2023-01-19 14:05] VITALS: BMI 30.1
--- NOTE | 2023-02-13 08:47 | SUR.PREOP ---
Patient called regarding upcoming procedure. Message left on pt's voicemail regarding appointment times.
[2023-02-15 08:49] VITALS: BP 136/70; PULSE 73; RESP 16; TEMP 36.4; O2SAT 100
[2023-02-15] MEDS: LACTATED RINGERS 1,000 ML 150 ML IV CONT (08:52)
--- NOTE | 2023-02-15 09:27 | WPDANESEPPF ---
Anes - Initial Pre Proc Eval Procedure: Operation Date: 02/15/23 10:00 Proposed Procedures p Esophagogastroduodenoscopy & Colonoscopy - Randall Saravia MD Date/Time: 02/15/23 09:27 Surgeon: Randall Saravia MD Pre Op Diagnosis: FA HX malignant neoplasm of digestive organs, GERD Patient Data Age: 72 Gender: F Height: 1.63 m Weight: 78.2 kg Last Vital Signs Temp 97.6 F 02/15/23 08:49 Pulse 73 02/15/23 08:49 Resp 16 02/15/23 08:49 BP 136/70 02/15/23 08:49 Pulse Ox 100 02/15/23 08:49 O2 Del Method Room Air 02/15/23 08:49 Allergies Allergy/AdvReac Type Severity Reaction Status Date / Time Sulfa (Sulfonamide Allergy Severe Nausea and Verified 02/15/23 08:47 Antibiotics) Vomiting fluticasone Allergy Unknown Verified 02/15/23 08:47 [From Advair Diskus] hydrocodone [From Vicodin] Allergy Unknown Verified 02/15/23 08:47 oxycodone [From OxyContin] Allergy Itching Verified 02/15/23 08:47 salmeterol Allergy Swelling Verified 02/15/23 08:47 [From Advair Diskus] of Lip/Tongue/Throat tiotropium Allergy Swelling Verified 02/15/23 08:47 [From Spiriva with of HandiHaler] Lip/Tongue/Throat Home Medications Medication Instructions Recorded Confirmed Type cetirizine 10 mg tablet (Zyrtec) 5 mg PO DAILY PRN Allergy Symptoms 12/25/18 02/15/23 History inhalational spacing device (Space #1 ea 12/25/18 01/19/23 History Chamber Plus) atenolol 50 mg tablet 50 mg PO BID 09/05/19 02/15/23 History azelastine 137 mcg (0.1 %) nasal 137 mcg (0.137 mL) intranasal Q12H 07/06/21 02/15/23 Rx spray aerosol #90 mL cholecalciferol (vitamin D3) 25 25 mcg PO DAILY 03/22/22 02/15/23 History mcg (1,000 unit) capsule gabapentin 100 mg capsule See Rx Instructions .Route 04/05/22 02/15/23 Rx .COMPLEX #180 caps montelukast 10 mg tablet See Rx Instructions .Route 06/14/22 02/15/23 Rx .COMPLEX #90 tabs esomeprazole magnesium 40 mg See Rx Instructions .Route 08/02/22 02/15/23 Rx capsule,delayed release .COMPLEX #45 caps atorvastatin 10 mg tablet 10 mg PO DAILY #90 tabs 12/07/22 02/15/23 Rx albuterol sulfate 90 mcg/actuation 1 puff inhalation Q4H PRN 12/13/22 02/15/23 History aerosol inhaler (ProAir HFA) Shortness Of Breath losartan 100 mg tablet 50 mg PO BID 12/13/22 02/15/23 History multivitamin 1 tablet PO DAILY 12/13/22 02/15/23 History Patient hx anesthesia problems: none Family hx anesthesia problems: none Results Review: All pre-operative results and documents have been reviewed as part of the pre-operative evaluation. [facility] Past Medical History Medical History Asthma Bilateral artificial lens implant Bone spur removed Chicken pox Chronic bronchitis CKD (chronic kidney disease) stage 3, GFR 30-59 ml/min Decreased GFR Depression Encounter for gynecological examination (general) (routine) without abnormal findings Encounter for preventative adult health care examination Encounter for screening for malignant neoplasm of rectum (03/07/17) Essential hypertension Heart disease Heart murmur Hemorrhoid HTN (hypertension) Hypercholesterolemia Lung disease Menopause Mild episode of recurrent major depressive disorder Mumps Neuropathy Osteoarthritis of knee Pelvic pain in female Sinus tachycardia Tachycardia Vitamin D deficiency Surgical History Surgical History H/O right knee surgery History of breast augmentation History of carpal tunnel surgery right History of cataract surgery History of hysterectomy Family History Family History Father Hypertension Cerebrovascular accident Asthma Family history of elevated blood lipids Family history of cardiovascular disease Acute myocardial infarction Sibling Cerebrovascular accident Family history of cardiovascular
--- NOTE | 2023-02-15 10:08 | PM.HPGS ---
History of Present Illness History of Present Illness Consent: Risks, benefits, and alternatives have been discussed and questions answered. Patient agrees to proceed with procedure. Chief complaint: FA HX malignant neoplasm of digestive organs, GERD Narrative: Jayda Lindsey is a 72 year old female with gerd on nexium for several years, also previous esophageal dilation. Last colonoscopy 7 years ago, mother had colon cancer. Review of Systems Constitutional: Constitutional: Denies headache(s) and Denies weakness Eyes: Eyes: Denies blurry vision ENT: Reports Normal hearing present, Denies headache(s) and Denies neck pain Cardiovascular: Cardiovascular: Denies chest pain and Denies dyspnea Respiratory: Respiratory: Denies dyspnea Gastrointestinal: Gastrointestinal: Reports no additional gastrointestinal complaints Genitourinary: Genitourinary: Denies dysuria Musculoskeletal: Musculoskeletal: Denies neck pain Integumentary/Breasts: Skin/Breast: Denies dry skin Neurologic: Reports Normal hearing present, Denies headache(s) and Denies weakness Psychiatric: Psychiatric: Denies anxiety Endocrine: Endocrine: Denies change in body appearance Hematologic/Lymphatic: Hematologic/Lymphatic: Denies easy bleeding Allergic/Immunologic: Allergic/Immunologic: Denies urticaria PMFSH Past Medical History Medical History Asthma Bilateral artificial lens implant Bone spur removed Chicken pox Chronic bronchitis CKD (chronic kidney disease) stage 3, GFR 30-59 ml/min Decreased GFR Depression Encounter for gynecological examination (general) (routine) without abnormal findings Encounter for preventative adult health care examination Encounter for screening for malignant neoplasm of rectum (03/07/17) Essential hypertension Heart disease Heart murmur Hemorrhoid HTN (hypertension) Hypercholesterolemia Lung disease Menopause Mild episode of recurrent major depressive disorder Mumps Neuropathy Osteoarthritis of knee Pelvic pain in female Sinus tachycardia Tachycardia Vitamin D deficiency Surgical History Surgical History H/O right knee surgery History of breast augmentation History of carpal tunnel surgery right History of cataract surgery History of hysterectomy Family History Family History Father Hypertension Cerebrovascular accident Asthma Family history of elevated blood lipids Family history of cardiovascular disease Acute myocardial infarction Sibling Cerebrovascular accident Family history of cardiovascular disease Mother Carcinoma of colon Family history of malignant neoplasm of ovary Patient's mother is Family history of rheumatic fever Grandparent Family history of type 2 diabetes mellitus Social History Social History Smoking status: Never smoker Alcohol intake: current Drinks per week: 3 Alcohol use details: 1 DRINK PER MONTH Substance use: never Substance use type: does not use Lack of Transportation: No Lack of Food: Never True Current Housing: I Have Housing Concerned About Future Housing: No Difficulty Paying Gas/Electric Bills: No Difficulty Paying for Meds: No Currently Unemployed: No Education: Bachelor's Degree Difficulty w/ Childcare or Family Care: No Living arrangements: alone Occupation/Education: retired Gender identity (if verbalized by the patient): Female Spiritual care concerns: No Meds Home Medications and Allergies Home Medications Medication Instructions Recorded Confirmed Type cetirizine 10 mg tablet (Zyrtec) 5 mg PO DAILY PRN Allergy Symptoms 12/25/18 02/15/23 History inhalational spacing device (Space #1 ea 12/25/18 01/19/23 History Chamber Plus) atenolol 50 mg tablet 50 mg PO
[2023-02-15] MEDS: BENZOCAINE (*SP) 60 ML SPRAY CAN (HURRICAINE) 1 SPRAY MUCOUS MEM (10:10)
--- NOTE | 2023-02-15 10:38 | SUR.OPER ---
EGD START 1012, END 1020 COLONOSCOPY START 1025, END 1034
[2023-02-15 10:41] VITALS: BP 106/58; PULSE 76; RESP 15; O2SAT 100
[2023-02-15 10:51] VITALS: BP 111/58; PULSE 76; RESP 20; O2SAT 100
[2023-02-15 11:01] VITALS: BP 121/61; PULSE 72; RESP 17; O2SAT 100
== END 2023-02-15 11:10 | disposition home or self-care (01) ==
PROVIDERS: PCP Internal Medicine; Visit Provider Internal Medicine Gastroenterology
PROC: 0DJ08ZZ Inspection of Upper Intestinal Tract, Via Natural or Artificial Opening Endoscopic (ICD-10-PCS; CPT 43235; principal; 2023-02-15 10:00)
DX: Z12.11 Encounter for screening for malignant neoplasm of colon (principal); D12.2 Benign neoplasm of ascending colon; D12.3 Benign neoplasm of transverse colon; K64.8 Other hemorrhoids; Z80.0 Family history of malignant neoplasm of digestive organs; K22.2 Esophageal obstruction; K21.00 Gastro-esophageal reflux disease with esophagitis, without bleeding; K44.9 Diaphragmatic hernia without obstruction or gangrene; I13.10 Hypertensive heart and chronic kidney disease without heart failure, with stage 1 through stage 4 chronic kidney disease, or unspecified chronic kidney disease; N18.30 Chronic kidney disease, stage 3 unspecified; E78.00 Pure hypercholesterolemia, unspecified; J45.909 Unspecified asthma, uncomplicated; F32.9 Major depressive disorder, single episode, unspecified; E55.9 Vitamin D deficiency, unspecified; G62.9 Polyneuropathy, unspecified; Z79.51 Long term (current) use of inhaled steroids; E66.9 Obesity, unspecified; Z68.29 Body mass index [BMI] 29.0-29.9, adult
CPT/HCPCS: 45385; 45380; 43249; 88305; C1726; J2704; J7120

== ENCOUNTER 2023-06-02 12:34 | Emergency (ER) | payer MEDICARE, SELFPAY ==
[2023-06-02 12:41] VITALS: BP 179/66; PULSE 80; RESP 16; TEMP 36.4; O2SAT 100
--- NOTE | 2023-06-02 12:52 | ECG_ITS ---
SEE SCANNED COPY FOR CONFIRMED REPORT MTDD
[2023-06-02 13:01] LABS: Basophils Absolute Auto 0.1 K/mm3 (0.0-0.1); Basophils Percent Auto 0.7 % (0.2-1.2); Eosinophils Absolute Auto 0.1 K/mm3 (0-0.3); Eosinophils Percent Auto 1.2 % (0-4.4); Hematocrit 38.5 % (37.0-47.0); Immature Granulocyte Absolute 0.03 K/mm3 (0.00-0.031); Immature Granulocyte Percent A 0.4 % (0-0.5); Lymphocytes Absolute Auto 1.31 K/mm3 (0.9-3.2); Lymphocytes Percent Auto 18.9 % (18.3-44.2); Mean Corpuscular HGB Conc 33.8 g/dl (32-36); Mean Corpuscular Volume 91.9 fl (80-100); Mean Platelet Volume 9.8 fl (7.4-10.4); Monocytes Absolute Auto 0.5 K/mm3 (0.1-0.6); Monocytes Percent Auto 6.8 % (2.6-8.5); Platelet Count Result 284 k/mm3 (150-375); Red Blood Count 4.19 M/mm3 (4.2-5.4); Red Cell Distribution Width 12.3 % (11.5-14.5); White Blood Count 6.9 K/mm3 (4.5-10.0)
--- NOTE | 2023-06-02 13:06 | ED.ARRPALP ---
HPI - Arrhythmia/Palpitations General Chief Complaint: Arrhythmia/Palpitations Stated Complaint: PALPATATIONS,ELEVATED BLOOD PRESSURE Time Seen by Provider: 06/02/23 13:02 Source: patient Mode of arrival: ambulatory Limitations: no limitations History of Present Illness HPI narrative: Patient presents with concern elevated blood pressure as well as palpitations. She states intermittently since approximately to beginning of the year she has experienced her racing feeling like her heart rate is either irregular or she is having extra beats. She also has a log of her blood pressures from 04/21-06/01 which she checks approximately twice daily. She is concerned about the variability in the BP readings. today she felt short of breath. She has not been coughing having fever. She states it feels like her chest is swollen and she had throat/neck pain and a headache. She says occasionally her bilateral lower extremities will become swollen though states they are not presently. She sees Dr. Balbuena because she has CKD stage IIIB. Her gabapentin was stopped and her losartan dosage was increased to from 50mg to 150 mg q.h.s.. That change was made in approximately April. She also remains atenolol 50 mg b.i.d. which is medication that she has taken for many years. She previously saw a mri tech through the [place] but they retired. because of her symptoms today she 1st went to a local EMS/fire department and when the EMT/medic checked her BP it was 190/78, reportedly on auscultation. THis worried her. They offered to escort vehicle driver her but she presented via POV. Her PCP is her ObGyn Dr Segura whom who last saw at an appointment in February when her SBP was 148mmHg. [facility] and had [facility]. Related Data Home Medications Medication Instructions Recorded Confirmed cetirizine 10 mg tablet (Zyrtec) 5 mg PO DAILY PRN Allergy Symptoms 12/25/18 05/03/23 inhalational spacing device (Space #1 ea 12/25/18 05/03/23 Chamber Plus) atenolol 50 mg tablet 50 mg PO BID 09/05/19 05/03/23 cholecalciferol (vitamin D3) 25 25 mcg PO DAILY 03/22/22 05/03/23 mcg (1,000 unit) capsule albuterol sulfate 90 mcg/actuation 1 puff inhalation Q4H PRN 12/13/22 05/03/23 aerosol inhaler (ProAir HFA) Shortness Of Breath multivitamin 1 tablet PO DAILY 12/13/22 05/03/23 budesonide-formoterol HFA 160 1 inh inhalation ONCE 03/16/23 05/03/23 mcg-4.5 mcg/actuation aerosol inhaler (Symbicort) famotidine 20 mg tablet 20 mg PO DAILY 05/02/23 05/02/23 losartan 50 mg tablet 75 mg PO DAILY 05/02/23 05/03/23 Allergies Allergy/AdvReac Type Severity Reaction Status Date / Time Sulfa (Sulfonamide Allergy Severe Nausea and Verified 05/02/23 10:07 Antibiotics) Vomiting fluticasone Allergy Unknown Verified 05/02/23 10:07 [From Advair Diskus] hydrocodone [From Vicodin] Allergy Unknown Verified 05/02/23 10:07 oxycodone [From OxyContin] Allergy Itching Verified 05/02/23 10:07 salmeterol Allergy Swelling Verified 05/02/23 10:07 [From Advair Diskus] of Lip/Tongue/Throat tiotropium Allergy Swelling Verified 05/02/23 10:07 [From Spiriva with of HandiHaler] Lip/Tongue/Throat PMFSH Past Medical History Medical History Asthma Bilateral artificial lens implant Bone spur removed Chicken pox Chronic bronchitis CKD (chronic kidney disease) stage 3, GFR 30-59 ml/min Decreased GFR Depression Encounter for gynecological examination (general) (routine) without abnormal findings Encounter for preventative adult health care examination Encounter for screening for malignant neoplasm of rectum (03/07/17) Essential hypertension Heart disease Heart murmur Hemorrhoid History of skin cancer HTN (hypertension) Hypercholesterolemia Lung disease Menopause Mild episode of recurrent major depressive disorder Mumps Neuropathy Osteoarthrit
[2023-06-02 13:11] LABS: Alanine Aminotransferase 27 U/L (6-35); Albumin Level 4.4 g/dL (3.5-5.1); Alkaline Phosphatase 104 U/L (38-126); Anion Gap 7 mmol/L (4-12); Aspartate Amino Transferase 28 U/L (14-36); Bilirubin,Total 1.2 mg/dL (0.2-1.3); Blood Urea Nitrogen 15 mg/dL (7-17); Calcium 10.4 mg/dL (8.4-10.2); Carbon Dioxide 23 mmol/L (22-30); Chloride 104 mmol/L (98-107); Estimated CRCL calculation 36 ml/min; Estimated Glomerular Filt Rate 40; Glucose 131 mg/dL (65-110); Lipase 141 U/L (23-300); Prothrombin Time 13.1 Seconds (11.1-14.7); Sodium 134 mmol/L (137-145)
[2023-06-02 13:12] LABS: Partial Thromboplastin Time 25.4 Seconds (22.3-36.8)
[2023-06-02 13:16] VITALS: PULSE 77
[2023-06-02 13:17] VITALS: BP 148/75; PULSE 77; RESP 15; O2SAT 100
[2023-06-02 13:22] LABS: Troponin I < 0.012 ng/mL (0.000-0.034)
[2023-06-02 13:57] LABS: Influenza A QL RT-PCR Negative (Negative); Influenza B QL RT-PCR Negative (Negative); RSV RNA, RT-PCR Negative (Negative); SARS-CoV-2 RNA PCR Negative (Negative)
[2023-06-02 14:27] LABS: Magnesium 1.8 mg/dL (1.6-2.3)
[2023-06-02 14:35] LABS: D Dimer 0.37 ug/mL (<0.48)
[2023-06-02 14:37] LABS: NT Pro B Type Natriuretic Pept 87 pg/mL (19.9-100)
--- NOTE | 2023-06-02 15:34 | ECG_ITS ---
SEE SCANNED COPY FOR CONFIRMED REPORT MTDD
[2023-06-02 16:04] VITALS: BP 142/60; PULSE 82; RESP 17; O2SAT 100
[2023-06-02 16:40] LABS: Troponin I < 0.012 ng/mL (0.000-0.034)
[2023-06-02 17:26] VITALS: BP 140/68; PULSE 73; RESP 17; O2SAT 100
== END 2023-06-02 17:27 | disposition home or self-care (01) ==
PROVIDERS: Emergency Provider Student in an Organized Health Care Education/Training Program; PCP Family Medicine
DX: I12.9 Hypertensive chronic kidney disease with stage 1 through stage 4 chronic kidney disease, or unspecified chronic kidney disease (principal); R00.0 Tachycardia, unspecified; N18.32 Chronic kidney disease, stage 3b; J45.909 Unspecified asthma, uncomplicated; E78.00 Pure hypercholesterolemia, unspecified; E55.9 Vitamin D deficiency, unspecified; Z20.822 Contact with and (suspected) exposure to COVID-19
CPT/HCPCS: 36415; 80053; 83690; 83735; 83880; 84443; 84484; 85025; 85380; 85610; 85730; 87637; 93005; 99284

== ENCOUNTER 2023-06-13 07:14 | Outpatient (CLI) | payer MEDICARE, SELFPAY ==
[2023-06-13 09:05] LABS: Cortisol 30 Minute 9.85 ug/dL
== END 2023-06-13 07:15 | disposition home or self-care (01) ==
LOC: ANHVASCINF 07:16
PROVIDERS: PCP Family Medicine; Visit Provider Internal Medicine Nephrology
DX: E87.1 Hypo-osmolality and hyponatremia (principal)
CPT/HCPCS: 36415; 82533; 96372; J0834

== ENCOUNTER 2023-06-30 14:25 | Outpatient (CLI) | payer MEDICARE, SELFPAY ==
--- NOTE | ~2023-06-30 | US_ITS ---
EXAMINATION: US venous doppler [facility] DATE: 06/30/2023 14:57 INDICATION: Shortness of breath and lower limb pain TECHNIQUE: Grayscale ultrasound images without and with compression and Doppler ultrasound images of the bilateral lower extremity veins were obtained. COMPARISON: None. FINDINGS: The visualized portions of right common femoral vein, profunda (deep) femoral vein, femoral vein, pop liteal vein, posterior tibial veins, peroneal veins, gastrocnemius vein and greater saphenous vein ou tflow are patent. The visualized portions of left common femoral vein, profunda femoral vein, femoral vein, popliteal v ein, posterior tibial veins, peroneal veins, gastrocnemius vein and greater saphenous vein outflow ar e patent. IMPRESSION: 1. No deep venous thrombosis in either lower limb. Reviewed, dictated and finalized at location A.
== END 2023-06-30 14:26 | disposition home or self-care (01) ==
LOC: ANHIMG 14:26
PROVIDERS: PCP Family Medicine; Visit Provider Internal Medicine Nephrology
DX: M79.89 Other specified soft tissue disorders (principal); R06.02 Shortness of breath
CPT/HCPCS: 93970

== ENCOUNTER 2023-08-28 11:35 | Outpatient (CLI) | payer MEDICARE, SELFPAY ==
--- NOTE | ~2023-08-28 | MM_ITS ---
EXAMINATION: MM scrn dario implant BI w cole HISTORY: Screening mammogram TECHNIQUE: Craniocaudal and mediolateral oblique 3-D tomosynthesis images with implant displacement a nd synthetic 2-D images were generated. Craniocaudal and mediolateral oblique views of the breasts wi thout implant displacement were obtained using full field digital mammography. CAD analysis was submi tted and interpreted. COMPARISON: Comparison to multiple prior studies sequentially, with oldest reviewed study dated 10/2020. BREAST PARENCHYMAL COMPOSITION: Not dense: There are scattered areas of fibroglandular density. FINDINGS: There is no evidence of suspicious mass, calcification, or architectural distortion to sugg est malignancy in either breast. There has been no suspicious interval change. IMPRESSION: 1. No mammographic evidence of malignancy. 2. Recommend routine screening mammography in one year. BI-RADS Category 1: Negative Reviewed, dictated and finalized at location B.
== END 2023-08-28 11:36 ==
LOC: MICIMG 11:36
PROVIDERS: PCP Family Medicine; Visit Provider Obstetrics & Gynecology
DX: Z12.31 Encounter for screening mammogram for malignant neoplasm of breast (principal)
CPT/HCPCS: 77063; 77067

== ENCOUNTER 2023-10-06 19:37 | Emergency (ER) | payer MEDICARE, SELFPAY ==
--- NOTE | 2023-10-06 19:41 | ED.LOWEXIN ---
HPI - Extremity Injury (Lower) General Chief Complaint: Extremity Injury, Lower Stated Complaint: LT Knee Pain Time Seen by Provider: 10/06/23 20:00 Source: patient and RN notes reviewed Mode of arrival: ambulatory Limitations: no limitations History of Present Illness HPI Narrative: 73-year-old female presents with concern for feeling a pop behind her left knee/calf earlier today. Reports she has had ongoing issues with her left leg with tight muscles, arthritis, pain for which she has been seeing a physical therapist and Orthopedics. Reports she got a steroid injection in her calf for ankle pain earlier this week. She reports pain with walking. He has been using a cane for the last several days at her physical therapist recommended for her chronic problems. She reports the pain radiate up the the thigh and down the calf MD complaint: leg injury Related Data Home Medications Medication Instructions Recorded Confirmed cetirizine 10 mg tablet (Zyrtec) 5 mg PO DAILY PRN Allergy Symptoms 12/25/18 06/14/23 inhalational spacing device (Space #1 ea 12/25/18 06/14/23 Chamber Plus) atenolol 50 mg tablet 50 mg PO BID 09/05/19 06/14/23 cholecalciferol (vitamin D3) 25 25 mcg PO DAILY 03/22/22 06/14/23 mcg (1,000 unit) capsule albuterol sulfate 90 mcg/actuation 1 puff inhalation Q4H PRN 12/13/22 06/14/23 aerosol inhaler (ProAir HFA) Shortness Of Breath multivitamin 1 tablet PO DAILY 12/13/22 06/14/23 budesonide-formoterol HFA 160 1 inh inhalation ONCE 03/16/23 06/14/23 mcg-4.5 mcg/actuation aerosol inhaler (Symbicort) famotidine 20 mg tablet 20 mg PO DAILY 05/02/23 06/14/23 Allergies Allergy/AdvReac Type Severity Reaction Status Date / Time Sulfa (Sulfonamide Allergy Severe Nausea and Verified 06/12/23 10:01 Antibiotics) Vomiting fluticasone Allergy Unknown Verified 06/12/23 10:01 [From Advair Diskus] hydrocodone [From Vicodin] Allergy Unknown Verified 06/12/23 10:01 oxycodone [From OxyContin] Allergy Itching Verified 06/12/23 10:01 salmeterol Allergy Swelling Verified 06/12/23 10:01 [From Advair Diskus] of Lip/Tongue/Throat tiotropium Allergy Swelling Verified 06/12/23 10:01 [From Spiriva with of HandiHaler] Lip/Tongue/Throat Review of Systems Review of Systems: CONSTITUTIONAL: Denies malaise, chills, sweats, or fever. SKIN: Denies rash or itching, open skin, laceration, abrasion, redness, warmth, swelling. MUSCULOSKELETAL: Reports left posterior calf pain NEUROLOGIC: Denies numbness, weakness All systems reviewed & are unremarkable except as noted in HPI and below PMFSH Past Medical History Medical History Asthma Bilateral artificial lens implant Bone spur removed Chicken pox Chronic bronchitis CKD (chronic kidney disease) stage 3, GFR 30-59 ml/min Decreased GFR Depression Encounter for gynecological examination (general) (routine) without abnormal findings Encounter for preventative adult health care examination Encounter for screening for malignant neoplasm of rectum (03/07/17) Essential hypertension Heart disease Heart murmur Hemorrhoid History of skin cancer HTN (hypertension) Hypercholesterolemia Lung disease Menopause Mild episode of recurrent major depressive disorder Mumps Neuropathy Osteoarthritis of knee Pelvic pain in female Sinus tachycardia Tachycardia Vitamin D deficiency Surgical History Surgical History H/O right knee surgery History of breast augmentation History of carpal tunnel surgery right History of cataract surgery History of hysterectomy S/P bilateral foot surgery Family History Family History Father Hypertension Cerebrovascular accident Asthma Family history of elevated blood lipids Family history of cardiovascular disease Acute myocardial infarction Sibling C
[2023-10-06 19:45] VITALS: BP 142/67; PULSE 78; RESP 16; TEMP 35.9; O2SAT 100
== END 2023-10-06 20:18 | disposition home or self-care (01) ==
PROVIDERS: Emergency Provider Nurse Practitioner
DX: S89.92XA Unspecified injury of left lower leg, initial encounter (principal); X58.XXXA Exposure to other specified factors, initial encounter; J45.909 Unspecified asthma, uncomplicated; I12.9 Hypertensive chronic kidney disease with stage 1 through stage 4 chronic kidney disease, or unspecified chronic kidney disease; N18.30 Chronic kidney disease, stage 3 unspecified; R03.0 Elevated blood-pressure reading, without diagnosis of hypertension; E78.00 Pure hypercholesterolemia, unspecified; G62.9 Polyneuropathy, unspecified; E55.9 Vitamin D deficiency, unspecified; Z85.828 Personal history of other malignant neoplasm of skin
CPT/HCPCS: 99213; G0463

== ENCOUNTER 2023-11-27 07:42 | Outpatient (CLI) | payer MEDICARE, SELFPAY ==
--- NOTE | ~2023-11-27 | MR_ITS ---
MRI of the left ankle Clinical history: Posterior tibial tendinitis Technique: Coronal proton-density and proton-density fat-sat images, axial proton-density and proton- density fat-sat images, and sagittal proton-density and proton-density fat-sat images were acquired. Findings: Syndesmotic ligaments are intact. Anterior and posterior talofibular ligaments, and calcane ofibular ligament are intact. Deltoid ligament is intact. There is severe tendinosis of the distal tibialis posterior tendon which is thickened and hyperintens e. Remaining flexor tendons, peroneal tendons, anterior extensor tendons, and Achilles tendon are int act. There is no osteochondral lesion of the talar dome. Bone marrow signals and joint spaces appear intac t. No significant joint effusion. Plantar fascia intact, with small plantar calcaneal spur. No soft tissue mass or fluid collection mookie dent. Impression: Advanced tendinosis of the distal tibialis posterior tendon. Small plantar calcaneal spur. Reviewed, dictated and finalized at location . Impression: Advanced tendinosis of the distal tibialis posterior tendon. Small plantar calcaneal spur.
== END 2023-11-27 07:43 | disposition home or self-care (01) ==
LOC: MICIMG 07:42
PROVIDERS: PCP Family Medicine; Visit Provider Podiatrist Foot & Ankle Surgery
DX: M76.822 Posterior tibial tendinitis, left leg (principal); M77.32 Calcaneal spur, left foot
CPT/HCPCS: 73721

== ENCOUNTER 2024-03-06 11:10 | Outpatient (CLI) | payer MEDICARE, SELFPAY ==
--- NOTE | ~2024-03-06 | US_ITS ---
EXAMINATION: US thyroid DATE: 03/06/2024 11:34 INDICATION: Dysphagia, unspecified. TECHNIQUE: Multiple ultrasound images of the thyroid were obtained. COMPARISON: Chest CT 07/09/2021 FINDINGS: The right thyroid lobe measures 4.8 x 1.5 x 1.4 cm. The left thyroid lobe measures 4.3 x 1.1 x 1.4 c m. In the left thyroid lobe, there is a 6 mm solid, hypoechoic, wider than tall nodule with smooth m argin without echogenic foci (TI-RADS TR4). In the left thyroid lobe, there are 3 mm and 4 mm nodules . In the right thyroid lobe, there is a 9 mm solid, hypoechoic, wider than tall nodule with smooth ma rgin and punctate echogenic foci (TR5). In the right thyroid lobe, there is a 6 mm solid, hypoechoic, wider than tall nodule with ill-defined margin without echogenic foci (TR4). IMPRESSION: 1. Small thyroid nodules. Thyroid ultrasound is recommended in one year. Reviewed, dictated and finalized at location A. 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
== END 2024-03-06 11:11 | disposition home or self-care (01) ==
LOC: MICIMG 11:11
PROVIDERS: PCP Family Medicine; Visit Provider Student in an Organized Health Care Education/Training Program
DX: E04.2 Nontoxic multinodular goiter (principal)
CPT/HCPCS: 76536

== ENCOUNTER 2024-03-14 12:01 | Outpatient (CLI) | payer MEDICARE, SELFPAY ==
--- NOTE | ~2024-03-14 | DEXA_ITS ---
Bone Density Report Name: ELLIS PHAM Age: 74 Sex: Female Ethnicity: White Date of : 1950 Indication: postmenopausal; screening for osteoporosis; height loss; asthma or emphysema; hysterectomy; Referring Provider: René Browne Study: Bone densitometry was performed. Exam Date: March 14, 2024 Accession number: [id number] Bone Density: Region BMD T-score Z-score Classification AP Spine(L1-L4) 0.904 -1.3 0.9 Osteopenia Femoral Neck (Left) 0.701 -1.3 0.6 Osteopenia Total Hip (Left) 0.843 -0.8 0.8 Normal Femoral Neck (Right) 0.678 -1.5 0.4 Osteopenia Total Hip (Right) 0.830 -0.9 0.7 Normal Femoral Neck Mean 0.689 -1.4 0.5 Osteopenia Total Hip Mean 0.837 -0.9 0.7 Normal World Health Organization criteria for BMD impression classify patients as: Normal (T-score at or above -1.0), Osteopenia (T-score between -1.0 and -2.5), or Osteoporosis (T-score at or below -2.5). 10-year Fracture Risk(1): Major Osteoporotic Fracture 10% Hip Fracture 1.7% Reported Risk Factors: [place] (), Neck BMD=0.678, BMI=28.8 (1) FRAX(R) Version 3.08. Fracture probability calculated for an untreated patient. Fracture probability may be lower if the patient has received treatment. Clinical Information Provided by Patient: Has used the following medications: HRT (i.e. estrogen/hormone therapy), Vitamin D Has the following medical conditions: Asthma or Emphysema, Hysterectomy Patient maximum height was 65 Menopause Age: 34 Does not regularly consume dairy products Drinks caffeinated beverages Onset of menses at age 13 Number of children 1 Impression: The patient has low bone mass, based on the Right Femoral Neck T-score. Discussion: BONE DENSITY IS LOW AT ONE OR MORE SKELETAL SITES. This patient's lowest T-score is low at one or more skeletal sites. It meets the World Health Organization's (WHO) criteria for ?low bone mass? (T-score between -1.0 and -2.5). The patient's 10-year risk of fracture as calculated by FRAX is less than the threshold where pharmacological therapy is recommended by the National Osteoporosis Foundation (NOF). However, all treatment decisions require clinical judgment and consideration of individual patient factors, including patient preferences, comorbidities, previous drug use, risk factors not captured in the FRAX model (e.g., frailty, falls, vitamin D deficiency, increased bone turnover, interval significant decline in bone density) and possible under or overestimation of fracture risk by FRAX. The patient should follow a healthful lifestyle (good nutrition with adequate calcium and vitamin D, and appropriate weight-bearing exercise). Follow-Up: Consider repeating this study in 2 to 3 years to reassess this patient's status, or sooner if there is some new clinical indication. Reported by: SARANYA on 03/14/2024 12:24:00 PM. Reviewed, dictated and finalized at location A.
--- OUTSIDE RECORDS SUMMARY | 2024-03-14 12:03 | XMS_ITS | Data Portability ---
Author Organization [facility], Main Office Address [address] [place] [address] Care Team Providers Care Traffic Sign Supervisor Name Role Phone ORQUIDEA AQUINO Primary Care Provider ORQUIDEA AQUINO Referring Provider [phone] Assessment Encounter Date Assessment Date Assessment LastModified by Organization Details LastModified Time 07/11/2023 07/11/2023 73-year-old female presents for evaluation of her bilateral knees, right worse than left. She reports pain for several years since 2019. 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 She has not doing any treatments, although she had a course of physical therapy and a previous injection Around the time of her initial injury.she reports pain and tightness in the calves and hamstrings. Worse with activity. 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 She also previously had injections in her bilateral knees which did help. She presents today asking for another set of injections. She currently rates her pain as 5/10. review of systems per patient questionnaire . She has chronic kidney disease and is unable to take NSAIDs. Physical exam: She has tenderness palpation over the medial joint line over the patellofemoral joint on the right side, and tenderness over the joint lines on the left. Range of motion 0-130. Stable ligaments. Negative Yves's. X-rays were reviewed, demonstrating degenerative changes of the medial compartment of the right knee, with joint space narrowing and small osteophytes We will begin with conservative management. We will send her to a course of physical therapy, and since she can not take oral anti-inflammatori es I would write come and Voltaren gel. She still wanted a injection today, we perform that for her right knee which she tolerated well. She may follow-up as needed. Not available 07/11/2023 15:13:15 10/18/2023 10/18/2023 73-year-old female presents for follow-up of her left knee. She reports having new pain in the back of the calf. She did get a cortisone injection into the calf for foot issues from her cvicu nurse about 2 weeks ago. Since then, the calf has been bruised. She reports pain in the calf started before then. She has an area of bruising over the gastrocs muscle corresponding to where she had the injection. She has soreness in the calf from the heads of the gastrocs all the way down to the muscle tendinous junction of the Achilles. She is able to plantar flex and dorsiflex her ankle. Intact Tucker test. We discussed that for a calf strain, we would still continue conservative management with anti-inflammatori es, physical therapy, and stretching. She can not take oral anti-inflammatori es because of kidney issues so she can continue on Voltaren gel. We gave her a renewal for her PT. She may follow-up as needed. Not available 10/18/2023 10:49:48 Plan of Treatment Reminders Order Date Submit Date Provider Last Modified By Organization Details Last Modified Time Details Appointments None recorded. Lab None recorded. Referral physical therapist referral - eval and treat 2023 FRANKIE [facility], [address] [place], [address], 11:28:09 physical therapist referral - Please contact patient to schedule 2023 024 [email or web address] [facility] [place] [facility], [address], [place], [address], 14:48:30 Procedures injection/a spiration joint/bursa (PROC) 2023 024 [email or web address] In-Office Order, Internal Use Only DO Not Attach Compendium DO Not Attach Compendium, Do Not Delete/merge, [id number] 16:17:13 Surgeries None recorded. Imaging XR, knee, 3 view 2023 024 FRANKIE [facility] [place], [address], [place], [address], 4 08:48:24 Medication Orders bupivacaine HCl 0.5 % (5 mg/mL) injection solution 2023 024 [email or web address] Not available 10:21:12 Kenalog 10 mg/mL suspension for injection 2023 024 [email or web address] Not available 10:21:12 Patient TargetsNo targets recorded. Patient InstructionsNo instructions recorded. Reason for Referral Physical Therapist Referral for Pain of bilateral knee joints eval and treat Referring Physician: Vikram Mello, Orthopedic Surgery, Encounter Date: 07/11/2023 Physical Therapist Referral for Pain of bilateral knee joints Please contact patient to schedule Referring Physician: Vikram Mello, Orthopedic Surgery, Encounter Date: 10/18/2023 Results Created Date Observation Date Name Description Value Unit Range Abnormal Flag Note LastModifiedBy Organization Detail LastModifiedTime 07/11/19 24 XR, knee, 3 view No observ ation record ed. [email or web address] [facility] [place] [address], [place], [address], 07/11/2023 11:13:33 Result Notes None recorded. Problems Name Problem SNOMED Code Status Onset Date Resolution Date Notes Provider Name and Address Organization Details Recorded Time Pain of bilateral knee joints 66093688318243 4 Active 2023 DINO Delgado [facility], W[facility]21 11:13:15 Problem Notes None recorded. Procedures Surgical History Date Name Laterality Status Provider Name and Address Organization Details Recorded Time 07/11/19 24 Ortho - Cortisone Injection completed Vikram Mello MD [address] [place] [address], [place] [address], [place], [address], W-21 07/11/2023 15:13:40 Hysterectomy completed DINO Delgado [facility] 07/11/2023 11:09:50 Knee Surgery completed DINO Delgado [facility] 07/11/2023 11:10:02 Imaging Results Imaging Date Name Status LastModified by Organiz ation Details LastModified Time 07/11/2023 XR, knee, [email or web address] [facility] [place] [address], [place], [address], 07/11/2023 11:13:33 Procedure Notes None recorded. Medical Equipment None Reported. Allergies Allergen ID Allergen Name Allergen Category Reaction Reaction Severity Criticality Documentation Date Start Date Code Code System Note Provider Name and Address Organization Details Recorded Time 27493 Substance with sulfonami de structure and antibacte rial mechanism of action (substanc e) medicatio n Not available Not available Not available 07/11/2023 96912 8003 SNOMED Clarice RahmanAKRLNathalie [facility], [facility] 11:05:54 Medications Name Sig Start Date Stop Date Status Note LastModified by Organization Details LastModified Time valacyclovi r 1 gram tablet TAKE 1 TABLET BY MOUTH TWICE DAILY AT ONSET OF SYMPTOMS active Not Available Not Available No t Available bupivacaine HCl 0.5 % (5 mg/mL) injection solution Take 4 mL by injection route. 2023 active Not Available Not Available Not Avai lable Kenalog 10 mg/mL suspension for injection Take 1 mL by injection route. 2023 active NDC: 0003- 0494- 20 Not Available Not Available Not Available esomeprazol e magnesium 40 mg capsule,del ayed release TAKE 1 CAPSULE BY MOUTH EVERY OTHER DAY active Not Available Not Available No t Available irbesartan 150 mg tablet TAKE 1 TABLET BY MOUTH DAILY active Not Available Not Available No t Available cyclobenzap rine 5 mg tablet TAKE 1 TABLET BY MOUTH THREE TIMES DAILY NEEDED FOR MUSCLE SPASM active Not Available Not Available No t Available pregabalin 75 mg capsule TAKE 1 CAPSULE BY MOUTH TWICE DAILY 07/10 completed Not Available Not Available Not Available atorvastati n active Not Available Not Available Not Available atenolol active Not Available Not Avai lable Not Available cetirizine active Not Available Not Av ailable Not Available Nexium active Not Available Not Availa ble Not Available Vitals Date Recorded Body height Body mass index (BMI) Body weight Pain severity - 0-10 verbal numeric rating [Score] - Reported Provider Name and Address Organization Details Last Updated DateTime 07/11/2023 162.56 cm 29.5 kg/m2 07180.89 g 5 Clarice Rahman KARLNathalie [facility] 07/11/2023 11:05:37 Date Recorded Body height Body mass index (BMI) Body weight Pain severity - 0-10 verbal numeric rating [Score] - Reported Provider Name and Address Organization Details Last Updated DateTime 10/18/2023 162.56 cm 29.5 kg/m2 77976.89 g 5 Clarice Rahman KARLNathalie [facility] 10/18/2023 09:26:12 Social History Question Answer Notes LastModified by [email or web address] ion Details LastModified Time Tobacco Smoking Status Unknown If Ever Smoked DINO Delgado [facility] 07/11/2023 11:09:34 What Is Your Level Of Alcohol Consumption? Moderate [email or web address] Information not available 07/11/2023 What Was The Date Of Your Most Recent Tobacco Screening? 10/18/2023 [email or web address] Information not available 10/18/2023 Sex: Unknown Functional Status None recorded. Mental Status None recorded. Family History Relationship Description Onset Age of this Age Resolved Age Notes LastModified by Organization Details LastModified Time Mother Family history of malignant neoplasm [email or web address] Not available 2023 11:08:15 Paternal Grandfather Diabetes mellitus [email or web address] Not available 2023 11:08:28 Father Heart disease Not available 2023 11:08:40 Father Hypertensive disorder [email or web address] Not available 2023 11:08:58 Medical History Condition Response HEART DISEASE/HEART PROBLEMS Y CANCER: SPECIFY Y LUNG DISEASE/DISORDER Y OSTEOARTHRITIS Y HYPERTENSION Y Gynecological HistoryNo gynecological history recorded. Obstetrics History GPAL:G 0 P 0 0 0 0 Past Encounters Encounter ID Performer Location Encounter Start Date Encounter Closed Date Diagnosis/Indication Diagnosis SNOMED-CT Code Diagnosis ICD10 Code Diagnosis Note [id number] Vikram Mello MD [facility] [place] [address] [place] [address] 07/11/2023 10:40:41 07/11/2023 12:03:39 Pain of bilateral knee joints 3658066996 05794 M25.631 [id number] Vikram Mello MD [facility] [place] [address] [place] [address] 10/18/2023 09:22:07 10/18/2023 10:36:26 Pain of bilateral knee joints 5924136419 60737 M25.569 Health Concerns Section Related Observation LastModified by Organization Detai ls LastModified Time None Recorded Concern Status LastModified by Organization Details LastModified Time None Recorded Advance Directives Directive None Recorded Payers Encounter Date Sequence Insurance Name Policy Number Policy Owens Covered Member ID Owens Member ID Guarantor Name 07/11/2023 1 [facility] (MEDICARE REPLACEMENT/A DVANTAGE - PPO) [id number] Jayda L Lindsey [id number] Jaydanathalie Lindsey 10/18/2023 1 [facility] (MEDICARE REPLACEMENT/A DVANTAGE - PPO) [id number] Jayda L Lindsey [id number] Jayda Lindsey OBGyn Episode No OBEpisode recorded.
--- OUTSIDE RECORDS SUMMARY | 2024-03-14 12:03 | XMS_ITS | Referral Summary ---
Author Organization [facility] [address] [facility] Address [address] [place] [address] Care Team Providers Care Digital Marketing Coordinator Name Role Phone Kate Ybarra MD Primary Care Provider [phone] Encounters Date Type Department Care Team Description 02/20/2024 9:25 AM BEARING GRINDER Ancillary Procedure [facility] Imaging at [address] [phone] Chronic pain of both knees 02/20/2024 9:20 AM BEARING GRINDER Ancillary Procedure [facility] Imaging at [address] [phone] Chronic pain of both knees 02/20/2024 9:30 AM BEARING GRINDER Office Visit [facility] Orthopedic and Sports Medicine [address] [place] [phone] Nakia Goddard PA Chronic pain of both knees (Primary Dx); Pes anserinus bursitis of both knees; Saphenous neuralgia, left; Saphenous neuralgia, right 01/29/2024 1:10 PM BEARING GRINDER Procedure visit [facility] Neurological Testing [address] [facility] Medicine [address]th [place] [address] [place] [address] Polyneuropathy; Radiculopathy of lumbar region 01/12/2024 Telephone [facility] Neuro Muscle [address] [facility] 6th [place] [address] [place] [address] Aspen De La Paz BS Please call to discuss Lab results 01/10/2024 1:00 PM BEARING GRINDER Office Visit [facility] Allergy and Immunology [address] [facility] [address] [place] [phone] Evon Villeda MD PhD Allergic rhinitis, unspecified seasonality, unspecified trigger (Primary Dx); Chronic rhinitis; Allergic conjunctivitis of both eyes; Uncomplicated asthma, unspecified asthma severity, unspecified whether persistent; SOB (shortness of breath) 12/25/2023 Orders Only [facility] Neuro Muscle [address] [facility] [address] [place] [address] [place] [address] Juan Etienne MD 12/25/2023 10:05 AM BEARING GRINDER Lab [facility] [address] [place] [address] Polyneuropathy; Other specified disorders of carbohydrate metabolism (HCC) 12/25/2023 8:00 AM BEARING GRINDER Office Visit [facility] Neuro Muscle [address] [facility] [address] [place] [address] [place] [address] Juan Etienne MD Polyneuropathy; Radiculopathy of lumbar region; Other specified disorders of carbohydrate metabolism (HCC) from Last 3 Months Allergies Active Allergy Reactions Criticality Noted Date Comments Fluticasone Unknown 11/24/2014 Fluticasone Propion-Salmeterol Swollen tongue High 04/03/2018 Hydrocodone Itching Low 11/24/2014 Itching Naproxen Headache Low 04/03/2018 Oxycodone Itching Low 11/24/2014 Itching Salmeterol Unknown 11/24/2014 Sulfa Nausea & Vomiting Low 04/03/2018 Sulfa (Sulfonamide Antibiotics) Stomach upset,Nausea & Vomiting Low 01/07/2016 Stomach/GI Upset Tiotropium [place]a Swollen tongue High 04/03/2018 Medications albuterol HFA (PROVENTIL HFA,VENTOLIN HFA,PROAIR HFA) 90 mcg/actuation inhaler Inhale 9 Active atenoloL (TENORMIN) 50 mg tablet Take 1 tablet (50 mg total) by mouth 2 (two) times a day 9 Active atorvastatin (LIPITOR) 20 mg tablet Take 0.5 tablets (10 mg total) by mouth 3 Active cetirizine (ZyrTEC) 10 mg tablet Take 1 tablet (10 mg total) by mouth daily 6 Active cholecalciferol (VITAMIN D-3) 2000 unit tablet Take by mouth Active irbesartan (AVAPRO) 150 mg tablet Take 1 tablet (150 mg total) by mouth 4 Active omeprazole (PriLOSEC) 40 mg capsule Take 1 capsule (40 mg total) by mouth 3 Active budesonide-form oteroL (Symbicort) 160-4.5 mcg/actuation inhaler 9 Active EPINEPHrine 0.3 mg/0.3 mL auto-injection syringe Inject into the muscle as instructed [address] (NexIUM) 20 mg capsule Active montelukast (SINGULAIR) 10 mg tablet Take by mouth 9 Active pregabalin (LYRICA) 50 mg capsule TAKE 1 CAPSULE BY MOUTH EVERY DAY AT BEDTIME 4 Active valACYclovir (VALTREX) 1 gram tablet TAKE 1 TABLET BY MOUTH TWICE DAILY AT ONSET OF SYMPTOMS Active tavaborole 5 % solution with applicator APPLY TOPICALLY TO AFFECTED NAILS ONCE DAILY 4 Active verapamil SR (CALAN SR) 180 mg CR tablet Take 0.5 tablets (90 mg total) by mouth 3 Active azelastine-flut icasone 137-50 mcg/spray spray,non-aeros ol Administer 1 spray into affected nostril(s) 2 (two) times a day 23 g 3 4 01/10/20 25 Active Hospital, Clinic, or Other Facility Administered Medication Ordered Dose Route Frequency Start Date End Date Status lidocaine (XYLOCAINE) 20 mg/mL (2 %) injection 2 mLIndications:Admi nistration of Local Anesthesia 2 mL One-Time Injection 02/20/2024 02/20/2024 Ended lidocaine (XYLOCAINE) 20 mg/mL (2 %) injection 2 mLIndications:Admi nistration of Local Anesthesia 2 mL One-Time Injection 02/20/2024 02/20/2024 Ended methylPREDNISolone acetate (DEPO-medrol) injection 40 mgIndications:Pes anserinus bursitis of both knees 40 mg intra-artic One-Time Injection 02/20/2024 02/20/2024 Ended methylPREDNISolone acetate (DEPO-medrol) injection 40 mgIndications:Pes anserinus bursitis of both knees 40 mg intra-artic One-Time Injection 02/20/2024 02/20/2024 Ended Active Problems Problem Noted Date Diagnosed Date Moderate persistent asthma, uncomplicated 2023 Hypertension 09/27/2023 Hyperlipidemia 09/27/2023 Coronary artery calcification seen on CAT scan 0 09/27/2023 Gastro-esophageal reflux disease without esophag itis 04/09/2018 Polyneuropathy 04/09/2018 Stage 3a chronic kidney disease 04/09/2018 Social History Tobacco Use Types Packs/Day Years Used Date Smoking Tobacco: Never Passive Smoke Exposure: Never Smokeless Tobacco: Never Tobacco Cessation:Counseling Given: Not Answered Comments Unknown Sex and Gender Information Value Date Recorded Sex Assigned at Not on file Legal Sex Female 7:52 AM BEARING GRINDER Gender Identity Not on file Sexual Orientation Not on file Last Filed Vital Signs Vital Sign Reading Time Taken Comments Blood Pressure 130/77 02/20/2024 9:35 AM BEARING GRINDER Pulse 65 02/20/2024 9:35 AM BEARING GRINDER Temperature 36.6 C (97.9 F) 01/10/2024 12:46 PM BEARING GRINDER Respiratory Rate 18 01/10/2024 12:46 PM BEARING GRINDER Oxygen Saturation 98% 01/10/2024 12:46 PM BEARING GRINDER Inhaled Oxygen Concentration - - Weight 78.9 kg (174 lb) 02/20/2024 9:35 AM BEARING GRINDER Height 163.8 cm (5' 4.5 ) 02/20/2024 9:35 AM BEARING GRINDER Body Mass Index 29.41 02/20/2024 9:35 AM BEARING GRINDER Plan of Treatment Not on file Procedures Procedure Name Priority Date/Time Associated Diagnosis Comments DE ARTHROCENTESIS ASPIR&/INJ MAJOR JT/BURSA W/O US Routine 02/20/2024 9:30 AM BEARING GRINDER Pes anserinus bursitis of both knees XR KNEE BILATERAL 4 OR MORE VIEWS Schedule Routine, Read Routine (OP Routine) 02/20/2024 9:26 AM BEARING GRINDER Chronic pain of both knees XR PELVIS 1 OR 2 VIEWS Schedule Routine, Read Routine (OP Routine) 02/20/2024 9:26 AM BEARING GRINDER Chronic pain of both knees EMG/NCV Routine 01/29/2024 2:35 PM BEARING GRINDER Polyneuropathy Radiculopathy of lumbar region NEUROMUSCULAR SPECIMEN TRACKING OUTPATIENT Routine 12/28/2023 2:23 PM BEARING GRINDER Polyneuropathy CICI ANTIBODY EVALUATION WITH REFLEX Routine 12/25/2023 9:39 AM BEARING GRINDER Polyneuropathy IMMUNOTYPING Routine 12/25/2023 9:39 AM BEARING GRINDER Polyneuropathy Other specified disorders of carbohydrate metabolism (HCC) IMMUNOGLOBULIN FREE LIGHT CHAINS Routine 12/25/2023 9:39 AM BEARING GRINDER Polyneuropathy Other specified disorders of carbohydrate metabolism (HCC) HEMOGLOBIN A1C Routine 12/25/2023 9:39 AM BEARING GRINDER Polyneuropathy Other specified disorders of carbohydrate metabolism (HCC) THYROID FUNCTION CASCADE Routine 12/25/2023 9:39 AM BEARING GRINDER Polyneuropathy VITAMIN B12 Routine 12/25/2023 9:39 AM BEARING GRINDER Polyneuropathy MARGAUX QUALITATIVE WITH REFLEX TO MARGAUX QUANTITATIVE Routine 12/25/2023 9:39 AM BEARING GRINDER Polyneuropathy VITAMIN E Routine 12/25/2023 9:39 AM BEARING GRINDER Polyneuropathy NEUROMUSCULAR TESTING Routine 12/25/2023 12:00 AM BEARING GRINDER from Last 3 Months Results * DE ARTHROCENTESIS ASPIR&/INJ MAJOR JT/BURSA W/O US (02/20/2024 9:30 AM BEARING GRINDER) Narrative Bhavesh Green MD - 02/20/2024 9:30 AM BEARING GRINDER Nakia Goddard PA 02/23/2024 11:03 AM Large Joint (Hip, Knee, Shoulder) Injection: bilateral pes anserine bursa Performed by: Nakia Goddard PA Authorized by: Nakia Goddard PA Large Joint Injection/Aspiration: Consent Given by: Patient Site marked: the procedure site was marked Verbal consent obtained: Yes Supporting Documentation: Indications: Pain Procedure Details: Location: Knee Site: Bilateral pes anserine bursa Prep: patient was prepped and draped in usual sterile fashion Needle Size: 25 G Approach: Anterolateral Ultrasound guided: No Fluroscopic guidance: No Medications Right Large Joint Injection: 2 mL lidocaine 20 mg/mL (2 %); 40 mg methylPREDNISolone acetate 80 mg/mL Medications Left Large Joint Injection: 2 mL lidocaine 20 mg/mL (2 %); 40 mg methylPREDNISolone acetate 80 mg/mL Patient tolerance: Patient tolerated the procedure well with no immediate complications Nakia DENISE IN CLINIC/BEDSIDE ORDER TRACI Final Result * XR Knee Bilateral 4 or More Views (02/20/2024 9:26 AM BEARING GRINDER) Anatomical Region Laterality Modality Lower Extremities, Knee Digital Radiography Narrative 02/20/2024 9:48 AM BEARING GRINDER Radiographs of the bilateral knees reviewed interpreted. No acute fractures or destructive osseous lesions seen. Tricompartmental degenerative changes present. Findings moderate to advanced within the medial compartment of the right knee with posterior [id number] joint space narrowing, osteophyte formation and subchondral cyst seen of the trochlea. Left knee demonstrates moderate medial and patellofemoral degenerative changes with joint space narrowing and subchondral cysts seen of the patella. Nakia DENISE IMG XR PROCEDURES Final Result * XR Pelvis 1 or 2 Views (02/20/2024 9:26 AM BEARING GRINDER) Anatomical Region Laterality Modality Body, Pelvis N/A Digital Radiogra phy Narrative 02/20/2024 9:47 AM BEARING GRINDER X-ray of the pelvis viewed and interpreted. There is no evidence of fracture, subluxation, or bony abnormality. Femoral acetabular joint space is overall maintained. Enthesophytes present of the bilateral greater trochanter. Nakia DENISE IMG XR PROCEDURES Final Result * EMG/NCV (01/29/2024 2:35 PM BEARING GRINDER) Anatomical Region Laterality Modality Other Narrative 01/29/2024 2:35 PM BEARING GRINDER Eleno Rodríguez MD 01/29/2024 3:37 PM EMG/NCV - Date/Time: 01/29/2024 2:35 PM Performed by: Eleno Rodríguez MD Authorized by: Juan Etienne MD Juan Etienne MD NEUROLOGY ORDERABLES Final Resu lt * Neuromuscular Specimen Tracking Outpatient Blood (12/28/2023 2:23 PM BEARING GRINDER) Blood Narrative [facility] - 12/28/2023 2:23 PM BEARING GRINDER Blood draw complete Juan Etienne MD LAB BLOOD ORDERABLES Final Resu lt Performing Organization Address [facility]/ZIP Co de Phone Number [facility] [place] [address] * Immunotyping, serum (12/25/2023 9:39 AM BEARING GRINDER) Immunosubtraction Please see comment Comment: NO PARAPROTEIN DETECTED Reviewed and signed by Brad Urbina MD 12/26/2023 Blood 12/25/2023 9:39 AM BEARING GRINDER 12/25/2023 10:40 AM BEARING GRINDER Juan Etienne MD LAB BLOOD ORDERABLES Final Resu lt [facility] [place] [address] * MARAGUX ab ql w/rflx to MARGAUX qn (12/25/2023 9:39 AM BEARING GRINDER) MARGAUX Negative Comment: Interpretive Data Normal range for MARGAUX Qualitative Antibody = Negative. 1. MARGAUX is performed using indirect immunofluorescence against HEp-2 cells 2. MARGAUX titers are performed on all positive qualitative results. 3. A significantly positive MARGAUX result is defined as a positive nuclear fluorescence at a titer of 1:80 or greater. 4. 15% of normal people above age 65 have significantly positive MARGAUX results. 5% or less of normal people age 65 or under have significantly positive MARGAUX results. Current interpretive data was last revised on 2019. Blood 12/25/2023 9:39 AM BEARING GRINDER 12/25/2023 10:40 AM BEARING GRINDER us Juan Etienne MD LAB BLOOD ORDERABLES Final Resu lt [facility] [place] [address] * (ABNORMAL) Immunoglobulin free light chains (12/25/2023 9:39 AM BEARING GRINDER) [place]/Lambda ratio [facility] 1.60 0.26 - 1.65 Comment: Interpretive Data The Binding Site FreeLite assay procedure was used. Results from different manufacturers or methods may not be comparable. Serial testing should be performed using the same methods and instrumentation. Current Interpretive Data was last revised on 2023. [place] free light chain [facility] 2.39(H) 0.33 - 1.94 mg/dL [facility] Comment: Interpretive Data The Binding Site FreeLite assay procedure was used. Results from different manufacturers or methods may not be comparable. Serial testing should be performed using the same methods and instrumentation. Current Interpretive Data was last revised on 2023. Lambda free light chain [facility] 1.49 0.57 - 2.63 mg/dL [facility] Comment: Interpretive Data The Binding Site FreeLite assay procedure was used. Results from different manufacturers or methods may not be comparable. Serial testing should be performed using the same methods and instrumentation. Current Interpretive Data was last revised on 2023. Blood 12/25/2023 9:39 AM BEARING GRINDER 12/25/2023 10:40 AM BEARING GRINDER Juan Etienne MD LAB BLOOD ORDERABLES Final Resu lt Performing Organization Address [facility] de Phone Number [facility] [place] [address] * CICI ab eval w/reflex (12/25/2023 9:39 AM BEARING GRINDER) CICI ab Negative Negative Comment: Interpretive Data Positive Screens will be reflexed to specific testing for Antibodies against the following antigens: Ayala-1 Ab, WARES SORTER Ab, Scl-70 Ab, Etienne Ab, SS-A/Ro Ab, and SS- B/La Ab. Further testing for dsDNA, Centromere, or Ribosomal P antibodies is suggested in patient with a positive screen and negative specific antibodies. Current interpretive data was last revised on 2022. Blood 12/25/2023 9:39 AM BEARING GRINDER 12/25/2023 10:40 AM BEARING GRINDER Juan Etienne MD LAB BLOOD ORDERABLES Final Resu lt Performing Organization Address [facility] de Phone Number BRYAN [facility] [place] [address] * Thyroid Function [place] (12/25/2023 9:39 AM BEARING GRINDER) TSH 2.45 0.30 - 4.20 mcIUnit/mL Blood 12/25/2023 9:39 AM BEARING GRINDER 12/25/2023 10:40 AM BEARING GRINDER Juan Etienne MD LAB BLOOD ORDERABLES Final Resu lt Performing Organization Address [facility] Co de Phone Number BRYAN [facility] [place] [address] * Vitamin E (12/25/2023 9:39 AM BEARING GRINDER) Tocopherol (Vit E) 11.9 5.5 - 17.0 mg/L [facility] Comment: ADDITIONAL INFORMATION This test was developed and its performance characteristics determined by [facility] in a manner consistent with CLIA requirements. This test has not been cleared or approved by the U.S. Food and Drug Administration. Test Performed by: [facility] [address] [id number] Needle Punch Machine Operator: Paul Lewis Ph.D.; CLIA# [id number] Blood 12/25/2023 9:39 AM BEARING GRINDER 12/25/2023 10:55 AM BEARING GRINDER Juan Etienne MD LAB BLOOD ORDERABLES [facility] Per[facility] Organization Address [facility] [place] [address] [facility] * (ABNORMAL) Hemoglobin A1c (12/25/2023 9:39 AM BEARING GRINDER) [facility] Hgb A1C 5.8(H) 4.0 - 5.6 % Estimated Average Glucose 120 mg/dL [facility] Comment: The ADA recommends reporting an estimated Average Glucose (eAG) with all Hemoglobin A1c results using the equation derived from a study of 507 normal and diabetic adults. Minority populations were underrepresented and children were not included. (Diabetes Care 2020; 43(S1): S66-S76). The eAG is not equivalent to a fasting glucose. Blood 12/25/2023 9:39 AM BEARING GRINDER 12/25/2023 10:40 AM BEARING GRINDER Juan Etienne MD LAB BLOOD ORDERABLES Final Resu Performing Organization Address [facility] [place] [address] * Vitamin B12 (12/25/2023 9:39 AM BEARING GRINDER) [facility] Vitamin B12 1,053 230 - 1,250 pg/mL Blood 12/25/2023 9:39 AM BEARING GRINDER 12/25/2023 10:40 AM BEARING GRINDER Juan Etienne MD LAB BLOOD ORDERABLES Final Resu lt [facility] [place] [address] * Neuromuscular Testing (12/25/2023 12:00 AM BEARING GRINDER) Serum 12/25/2023 12/25/2023 12: 37 PM BEARING GRINDER Narrative 01/15/2024 12:33 PM BEARING GRINDER Please click on the PDF link to view the report containing this result Juan Etienne MD LAB PATHOLOGY ORDERABLES Final Result from Last 3 Months Insurance MEDICARE [employer] [facility] Address: [address] [address] [place] [address] [facility] CARE MEDICARE [employer] [facility] Address: [address] [place] [address] Care Teams Digital Marketing Coordinator Relationship Specialty Start Date End Date Kate Ybarra MD [address] [place] [address] PCP - General Family Medicine 09/27/23
--- OUTSIDE RECORDS SUMMARY | 2024-03-14 12:03 | XMS_ITS | Clinical Summary ---
Author Organization [place] [id number] [facility] [place] Address [address] [place] [address] Care Team Providers Care Grant Coordinator Name Role Phone Kate Ybarra MD Primary Care Provider [phone] Allergies Active Allergy Reactions Criticality Noted Date Comments Fluticasone Unknown 11/24/2014 Fluticasone Propion-Salmeterol Swollen tongue High 04/03/2018 Hydrocodone Itching Low 11/24/2014 Itching Naproxen Headache Low 04/03/2018 Oxycodone Itching Low 11/24/2014 Itching Salmeterol Unknown 11/24/2014 Sulfa Nausea & Vomiting Low 04/03/2018 Sulfa (Sulfonamide Antibiotics) Stomach upset,Nausea & Vomiting Low 01/07/2016 Stomach/GI Upset Tiotropium [place] Swollen tongue High 04/03/2018 Medications albuterol HFA [...] 04/09/2018 Stage 3a chronic kidney disease 04/09/2018 Encounters Date Type Department Care Team Description 02/20/2024 9:30 AM HEATING UNIT INSTALLER Office Visit [facility] Orthopedic and Sports Medicine [address] [place] [phone] Nakia Goddard PA Chronic pain of both knees (Primary Dx); Pes anserinus bursitis of both knees; Saphenous neuralgia, left; Saphenous neuralgia, right 02/20/2024 9:25 AM HEATING UNIT INSTALLER Ancillary Procedure [facility] Imaging at [address] [address] Chronic pain of both knees 02/20/2024 9:20 AM HEATING UNIT INSTALLER Ancillary Procedure [facility] Medical [facility] Imaging at [address] [address] Chronic pain of both knees 01/29/2024 1:10 PM HEATING UNIT INSTALLER Procedure visit [facility] Neurological Testing [address]th [place] [address] [place] [id number] Polyneuropathy; Radiculopathy of lumbar region 01/12/2024 Telephone [facility] Neuro Muscle [address]th [place] [address] [place] [phone] Aspen De La Paz BS Please call to discuss Lab results 01/10/2024 1:00 PM HEATING UNIT INSTALLER Office Visit [facility] Allergy and Immunology [address] [place] [phone] Evon Villeda MD PhD Allergic rhinitis, unspecified seasonality, unspecified trigger (Primary Dx); Chronic rhinitis; Allergic conjunctivitis of both eyes; Uncomplicated asthma, unspecified asthma severity, unspecified whether persistent; SOB (shortness of breath) 12/25/2023 10:05 AM HEATING UNIT INSTALLER Lab [facility]) [address] [place] [address] Polyneuropathy; Other specified disorders of carbohydrate metabolism (HCC) 12/25/2023 8:00 AM HEATING UNIT INSTALLER Office Visit [facility] Neuro Muscle [address] [place] [address] [place] [address] Juan Etienne MD Polyneuropathy; Radiculopathy of lumbar region; Other specified disorders of carbohydrate metabolism (HCC) 12/25/2023 Orders Only [facility] Neuro Muscle [address] [place] [address] [place] [address] Juan Etienne MD from Last 3 Months Social History Tobacco Use Types Packs/Day Years Used Date Smoking Tobacco: Never Passive Smoke Exposure: Never Smokeless Tobacco: Never Tobacco Cessation:Counseling Given: Not Answered Comments Unknown Sex and Gender Information Value Date Recorded Sex Assigned at Not on file Legal Sex Female 7:52 AM HEATING UNIT INSTALLER Gender Identity Not on file Sexual Orientation Not on file Obstetrics History Last Filed Vital Signs Vital Sign Reading Time Taken Comments Blood Pressure 130/77 02/20/2024 9:35 AM HEATING UNIT INSTALLER Pulse 65 02/20/2024 9:35 AM HEATING UNIT INSTALLER Temperature 36.6 C (97.9 F) 01/10/2024 12:46 PM HEATING UNIT INSTALLER Respiratory Rate 18 01/10/2024 12:46 PM HEATING UNIT INSTALLER Oxygen Saturation 98% 01/10/2024 12:46 PM HEATING UNIT INSTALLER Inhaled Oxygen Concentration - - Weight 78.9 kg (174 lb) 02/20/2024 9:35 AM HEATING UNIT INSTALLER Height 163.8 cm (5' 4.5 ) 02/20/2024 9:35 AM HEATING UNIT INSTALLER Body Mass Index 29.41 02/20/2024 9:35 AM HEATING UNIT INSTALLER Plan of Treatment Health Maintenance Due Date Last Done Comments Breast Cancer Screening-Mammogram 1950 Colon Cancer Screening-Colonoscopy 1950 Depression Screening 1950 Fall Risk Assessment 1950 Hepatitis C Screening 1950 Osteoporosis Screening-Bone Density Scan 1950 Zoster Vaccine (2 of 3) 08/23/2012 06/28/2012 Well Visit 65+ 02/23/2017 Pneumococcal vaccine 65+ (2 of 2 - PPSV23 or PCV20) 10/15/2020 08/20/2020, 08/02/2005 Influenza Vaccine (#1) 2023 , 12/09/2018, 11/27/2017, Additional history exists DTaP/Tdap/Td Vaccine (2 - Td or Tdap) 11/05/2024 11/05/2014 Procedures Procedure Name Priority Date/Time Associated Diagnosis Comments [place] ARTHROCENTESIS ASPIR&/INJ MAJOR JT/BURSA W/O US Routine 02/20/2024 9:30 AM HEATING UNIT INSTALLER Pes anserinus bursitis of both knees XR KNEE BILATERAL 4 OR MORE VIEWS Schedule Routine, Read Routine (OP Routine) 02/20/2024 9:26 AM HEATING UNIT INSTALLER Chronic pain of both knees XR PELVIS 1 OR 2 VIEWS Schedule Routine, Read Routine (OP Routine) 02/20/2024 9:26 AM HEATING UNIT INSTALLER Chronic pain of both knees EMG/NCV Routine 01/29/2024 2:35 PM HEATING UNIT INSTALLER Polyneuropathy Radiculopathy of lumbar region NEUROMUSCULAR SPECIMEN TRACKING OUTPATIENT Routine 12/28/2023 2:23 PM HEATING UNIT INSTALLER Polyneuropathy CICI ANTIBODY EVALUATION WITH REFLEX Routine 12/25/2023 9:39 AM HEATING UNIT INSTALLER Polyneuropathy IMMUNOTYPING Routine 12/25/2023 9:39 AM HEATING UNIT INSTALLER Polyneuropathy Other specified disorders of carbohydrate metabolism (HCC) IMMUNOGLOBULIN FREE LIGHT CHAINS Routine 12/25/2023 9:39 AM HEATING UNIT INSTALLER Polyneuropathy Other specified disorders of carbohydrate metabolism (HCC) HEMOGLOBIN A1C Routine 12/25/2023 9:39 AM HEATING UNIT INSTALLER Polyneuropathy Other specified disorders of carbohydrate metabolism (HCC) THYROID FUNCTION CASCADE Routine 12/25/2023 9:39 AM HEATING UNIT INSTALLER Polyneuropathy VITAMIN B12 Routine 12/25/2023 9:39 AM HEATING UNIT INSTALLER Polyneuropathy MARGAUX QUALITATIVE WITH REFLEX TO MARGAUX QUANTITATIVE Routine 12/25/2023 9:39 AM HEATING UNIT INSTALLER Polyneuropathy VITAMIN E Routine 12/25/2023 9:39 AM HEATING UNIT INSTALLER Polyneuropathy NEUROMUSCULAR TESTING Routine 12/25/2023 12:00 AM HEATING UNIT INSTALLER from Last 3 Months Results * [place] ARTHROCENTESIS ASPIR&/INJ MAJOR JT/BURSA W/O US (02/20/2024 9:30 AM HEATING UNIT INSTALLER) Narrative Bhavesh Green MD - 02/20/2024 9:30 AM HEATING UNIT INSTALLER Nakia Goddard PA 02/23/2024 11:03 AM Large [...] 4 or More Views (02/20/2024 9:26 AM HEATING UNIT INSTALLER) Anatomical Region Laterality Modality Lower Extremities, Knee Digital Radiography Narrative 02/20/2024 9:48 AM HEATING UNIT INSTALLER Radiographs of the bilateral knees reviewed interpreted. No acute fractures or destructive osseous lesions seen. Tricompartmental degenerative changes present. Findings moderate to advanced within the medial compartment of the right knee with posterior [id number] joint space narrowing, osteophyte formation and subchondral cyst seen of the trochlea. Left knee demonstrates moderate medial and patellofemoral degenerative changes with joint space narrowing and subchondral cysts seen of the patella. Nakia DENISE IMG XR PROCEDURES Final Result * XR Pelvis 1 or 2 Views (02/20/2024 9:26 AM HEATING UNIT INSTALLER) Anatomical Region Laterality Modality Body, Pelvis N/A Digital Radiogra phy Narrative 02/20/2024 9:47 AM HEATING UNIT INSTALLER X-ray of the pelvis viewed and interpreted. There is no evidence of fracture, subluxation, or bony abnormality. Femoral acetabular joint space is overall maintained. Enthesophytes present of the bilateral greater trochanter. Nakia DENISE IMG XR PROCEDURES Final Result * EMG/NCV (01/29/2024 2:35 PM HEATING UNIT INSTALLER) Anatomical Region Laterality Modality Other Narrative 01/29/2024 2:35 PM HEATING UNIT INSTALLER Eleno Rodríguez MD 01/29/2024 3:37 PM EMG/NCV - Date/Time: 01/29/2024 2:35 PM Performed by: Eleno Rodríguez MD Authorized by: Juan Etinene MD Juan Etienne MD NEUROLOGY ORDERABLES Final Resu lt * Neuromuscular Specimen Tracking Outpatient Blood (12/28/2023 2:23 PM HEATING UNIT INSTALLER) Blood Narrative [facility] - 12/28/2023 2:23 PM HEATING UNIT INSTALLER Blood draw complete Juan Etienne MD LAB BLOOD ORDERABLES Final Resu lt [facility] Department [place] [address] * Immunotyping, serum (12/25/2023 9:39 AM HEATING UNIT INSTALLER) [facility] Immunosubtraction Please see comment Comment: NO PARAPROTEIN DETECTED Reviewed and signed by Brad Urbina MD 12/26/2023 Blood 12/25/2023 9:39 AM HEATING UNIT INSTALLER 12/25/2023 10:40 AM HEATING UNIT INSTALLER Juan Etienne MD LAB BLOOD ORDERABLES Final Resu Performing Organization Address [facility] de Phone Number [facility] Department [place] [address] * MARGAUX ab ql w/rflx to MARGAUX qn (12/25/2023 9:39 AM HEATING UNIT INSTALLER) Pathologist [facility] MARGAUX Negative Comment: Interpretive Data Normal range [...] revised on 2019. Blood 12/25/2023 9:39 AM HEATING UNIT INSTALLER 12/25/2023 10:40 AM HEATING UNIT INSTALLER Juan Etienne MD LAB BLOOD ORDERABLES Final Resu Performing Organization Address [place] [facility] de Phone Number [facility] Department [place] [address] * (ABNORMAL) Immunoglobulin free light chains (12/25/2023 9:39 AM HEATING UNIT INSTALLER) Pathologist [facility] [place]/Lambda ratio [facility] 1.60 0.26 - 1.65 Comment: Interpretive Data The Binding Site FreeLite assay procedure was used. Results from different manufacturers or methods may not be comparable. Serial testing should be performed using the same methods and instrumentation. Current Interpretive Data was last revised on 2023. [place] free light chain [facility] 2.39(H) 0.33 - 1.94 mg/dL [facility] Comment: Interpretive Data The Binding Site FreeLite assay procedure was used. Results from different manufacturers or methods may not be comparable. Serial testing should be performed using the same methods and instrumentation. Current Interpretive Data was last revised on 2023. Lambda free light chain [facility] 1.49 0.57 - 2.63 mg/dL [facility] Comment: Interpretive Data The Binding Site FreeLite assay procedure was used. Results from different manufacturers or methods may not be comparable. Serial testing should be performed using the same methods and instrumentation. Current Interpretive Data was last revised on 2023. Blood 12/25/2023 9:39 AM HEATING UNIT INSTALLER 12/25/2023 10:40 AM HEATING UNIT INSTALLER Juan Etienne MD LAB BLOOD ORDERABLES Final Resu Performing Organization Address [facility] de Phone Number [facility] Department [place] [employer] [place] [address] * CICI ab eval w/reflex (12/25/2023 9:39 AM HEATING UNIT INSTALLER) CICI ab Negative Negative Comment: Interpretive Data Positive Screens will be reflexed to specific testing for Antibodies against the following antigens: Ayala-1 Ab, SAND CONDITIONER MACHINE Ab, Scl-70 Ab, Etienne Ab, SS-A/Ro Ab, and SS- B/La Ab. Further testing for dsDNA, Centromere, or Ribosomal P antibodies is suggested in patient with a positive screen and negative specific antibodies. Current interpretive data was last revised on 2022. Blood 12/25/2023 9:39 AM HEATING UNIT INSTALLER 12/25/2023 10:40 AM HEATING UNIT INSTALLER us Juan Etienne MD LAB BLOOD ORDERABLES Final Resu lt Performing Organization Address [place] [facility] Co de Phone Number [facility] [place] [employer] [place] [address] * Thyroid Function [place] (12/25/2023 9:39 AM HEATING UNIT INSTALLER) [facility] TSH 2.45 0.30 - 4.20 mcIUnit/mL Blood 12/25/2023 9:39 AM HEATING UNIT INSTALLER 12/25/2023 10:40 AM HEATING UNIT INSTALLER Juan Etienne MD LAB BLOOD ORDERABLES Final Resu Performing Organization Address [facility] de Phone Number [facility] Department [place] [employer] [place] [address] * Vitamin E (12/25/2023 9:39 AM HEATING UNIT INSTALLER) [facility] Tocopherol (Vit E) 11.9 5.5 - 17.0 mg/L [facility] Comment: ADDITIONAL INFORMATION This test was developed and its performance characteristics determined by [facility] in a manner consistent with CLIA requirements. This test has not been cleared or approved by the U.S. Food and Drug Administration. Test Performed by: [facility] [place] [address] Primary Care Nurse Practitioner: Paul Lewis Ph.D.; CLIA# [id number] Blood 12/25/2023 9:39 AM HEATING UNIT INSTALLER 12/25/2023 10:55 AM HEATING UNIT INSTALLER Juan Etienne MD LAB BLOOD ORDERABLES Final Resu Performing Organization Address [facility] de Phone Number [facility] Department [employer] [place] [address] [facility] * (ABNORMAL) Hemoglobin A1c (12/25/2023 9:39 AM HEATING UNIT INSTALLER) [facility] Hgb A1C 5.8(H) 4.0 - 5.6 % Estimated Average Glucose 120 mg/dL [facility] Comment: The ADA recommends reporting an estimated Average Glucose (eAG) with all Hemoglobin A1c results using the equation derived from a study of 507 normal and diabetic adults. Minority populations were underrepresented and children were not included. (Diabetes Care 2020; 43(S1): S66-S76). The eAG is not equivalent to a fasting glucose. Blood 12/25/2023 9:39 AM HEATING UNIT INSTALLER 12/25/2023 10:40 AM HEATING UNIT INSTALLER us Juan Etienne MD LAB BLOOD ORDERABLES Final Resu lt Performing Organization Address [place] [facility] de Phone Number [facility] [place] [employer] [place] [address] * Vitamin B12 (12/25/2023 9:39 AM HEATING UNIT INSTALLER) [facility] Vitamin B12 1,053 230 - 1,250 pg/mL Blood 12/25/2023 9:39 AM HEATING UNIT INSTALLER 12/25/2023 10:40 AM HEATING UNIT INSTALLER us Juan Etienne MD LAB BLOOD ORDERABLES Final Resu lt Performing Organization Address [place] [facility] de Phone Number [facility] [place] [address] * Neuromuscular Testing (12/25/2023 12:00 AM HEATING UNIT INSTALLER) Serum 12/25/2023 12/25/2023 12: 37 PM HEATING UNIT INSTALLER Narrative 01/15/2024 12:33 PM HEATING UNIT INSTALLER Please click on the PDF link to view the report containing this result us Juan Etienne MD LAB PATHOLOGY ORDERABLES Final Result from Last 3 Months Insurance [facility] MEDICARE [facility] MEDIC[facility] Address: [address] [address] [place] [address] [place] [address] MEDICARE SOLUTIONS Care Teams Grant Coordinator Relationship Specialty Start Date End Date Kate Ybarra MD [address] [place] [address] PCP - General Family Medicine 09/27/23
--- OUTSIDE RECORDS SUMMARY | 2024-03-14 12:04 | XMS_ITS | Clinical Summary ---
Author Organization [facility] Address [address] [place] [address] Care Team Providers Care Shoe Repairer Name Role Phone Vikram Balderas DO Primary Care Provider [phone] Allergies Active Allergy Reactions Criticality Noted Date Comments Sulfa Antibiotics Vomiting 12/19/2018 Medications PROAIR HFA 108 (90 Base) MCG/ACT inhaler 06/26/2018 Act andrea SYMBICORT 160-4.5 MCG/ACT inhaler 07/30/2018 Active esomeprazole 40 MG capsule 09/13/2018 Active gabapentin 100 MG capsule 02/20/2018 Active FLUZONE HIGH-DOSE 0.5 ML injection Inject 0.5 mLs into the muscle. 0 12/09/2018 Active losartan 25 MG tablet Take 25 mg by mouth daily. 0 07/04/2018 Active montelukast 10 MG tablet 10/24/2018 Active simvastatin 20 MG tablet 10/24/2018 Active atenolol 50 MG tablet Take 50 mg by mouth 2 (two) times daily. Active verapamil SR 180 MG tablet Take 90 mg by mouth 2 (two) times daily. Active vitamin D3, cholecalciferol , 10 MCG (400 UNIT) tablet Take 2,000 Units by mouth daily. Active NON FORMULARY Over the counter allergy Active cetirizine 10 MG tablet Take 10 mg by mouth daily. Active probiotic capsule Take 1 capsule by mouth 3 (three) times daily with meals. Active vitamin B1 100 MG tablet Take 100 mg by mouth daily. Active Alpha-Lipoic Acid 200 MG Cap Acti ve Active Problems No known active problems Social History Tobacco Use Types Packs/Day Years Used Date Smoking Tobacco: Never Smokeless Tobacco: Never Alcohol Use Standard Drinks/Week Comments Yes 0 (1 standard drink = 0.6 oz pur e alcohol) social Comments No Sex and Gender Information Value Date Recorded Sex Assigned at Not on file Legal Sex Female 3:32 PM CDT Gender Identity Not on file Sexual Orientation Not on file Last Filed Vital Signs Vital Sign Reading Time Taken Comments Blood Pressure 118/66 12/19/2018 1:00 PM CHIEF DEPUTY SHERIFF Pulse 64 12/19/2018 1:00 PM CHIEF DEPUTY SHERIFF Temperature 36.4 C (97.6 F) 12/19/2018 12:46 PM CHIEF DEPUTY SHERIFF Respiratory Rate 16 12/19/2018 1:00 PM CHIEF DEPUTY SHERIFF Oxygen Saturation 100% 12/19/2018 1:00 PM CHIEF DEPUTY SHERIFF Inhaled Oxygen Concentration - - Weight 72.6 kg (160 lb) 12/19/2018 10:25 AM CHIEF DEPUTY SHERIFF Height 162.6 cm (5' 4 ) 12/19/2018 10:25 AM CHIEF DEPUTY SHERIFF Body Mass Index 27.46 12/19/2018 10:25 AM CHIEF DEPUTY SHERIFF Plan of Treatment Health Maintenance Due Date Last Done Comments Colorectal Cancer Screening Colonoscopy (10 Years) 1950 Hepatitis C 02/23/1970 DTaP, Tdap and Td Vaccines ( 1 - Tdap) 02/23/1971 Mammogram Screening 1992 Zoster Vaccines (1 of 2) 02/23/2002 Dexa Scan (General) 02/23/2017 Pneumococcal Vaccine: 65+ Ye ars (1 of 1 - PCV) 02/23/2017 COVID-19 Vaccine ( - 2023-2 5 season) 2023 Influenza Adult (#1) 2023 RSV Immunization or 60+ Years (1 - 1-dose 75+ series) 02/23/2027 Meningococcal B Vaccine Aged Out No l onger eligible based on patient's age to complete this topic Meningococcal Vaccine Aged Out No baron dominique eligible based on patient's age to complete this topic RSV Immunizations Under 20 Months Aged Out No longer eligible based on patient's age to complete this topic Insurance Care Teams Shoe Repairer Relationship Specialty Start Date End Date Vikram Balderas DO [address] [place] [address] PCP - General INTERNAL MEDICINE 12/17/18
--- OUTSIDE RECORDS SUMMARY | 2024-03-14 12:04 | XMS_ITS | Patient Health Summary ---
Author Organization [facility] Address [address] [place] [address] Care Team Providers Care Taxation Economist Name Role Phone Vikram Balderas DO Primary Care Provider [phone] Note from [facility],non-owned Affiliates and Associated Physician Practices is amultiple site organization consisting of ambulatory clinics and hospital sitesin [place], [place], [place] and [place]. This disclosure is being madepursuant to the Care Everywhere program and may not contain all information available regarding this patient. Last updated 17.[facility] Social History Tobacco Use Types Packs/Day Years Used Date Smoking Tobacco: Never Assessed Sex and Gender Information Value Date Recorded Sex Assigned at Not on file Gender Identity Not on file Sexual Orientation Not on file Procedures * VAS RIGHT VENOUS DUPLEX LE(Performed 12/11/2019) Performed for Acute medial meniscus tear of right knee, initial encounter * DERMATOPATHOLOGY(Performed 03/28/2013) Results * VAS RIGHT VENOUS DUPLEX LE (12/11/2019 2:22 PM HONING MACHINE OPERATOR PRODUCTION) Anatomical Region Laterality Modality Lower Extremity Ultrasound 12/11/2019 1:53 PM HONING MACHINE OPERATOR PRODUCTION Narrative Procedure Note William Pressley MD - 12/11/[address] [address] Lower Extremity Venous Ultrasound Report Pat.Name: ANKIT JAYDA Pat.ID: [id number] .Date: 12/11/2019 Refer.MD: angel luis German Exam Time: 1:53:00 PM Study Type:LE Venous Age: 1 1950,69Y Sex: FEMALE Sonogrphr: Dat Yates RDMS Pat. Stat.:Outpatient Reason for Study: Pain -Leg, right History / Clinical: S/P surgery Procedures: Lower Extremity Venous - Right Race: 2 Visit ID: [id number] ++++++++++++++++++++++++++++++++++++ SUMMARY: ++++++++++++++++++++++++++++++++++++ No acute DVT evident. ++++++++++++++++++++++++++++++++++++ FINDINGS: ++++++++++++++++++++++++++++++++++++ Procedure: Venous duplex imaging of the right lower extremity was performed using color flow and spectral Doppler analysis. The contralateral common femoral vein was also examined. Study Quality: This study is of adequate technical quality. Rt Leg: All vessels seen appear patent and compressible. There was spontaneous and phasic flow seen in all the major veins of the right lower extremity. Appropriate augmentation with distal compression. Comments: Technologist findings were called to . No acute DVT seen. Signed 12/11/2019 03:16 PM William Pressley MD Angel Luis German MD VASCULAR LAB ORDERAB LES * PATHOLOGY TISSUE FOR DERMATOLOGY (03/28/2013 12:00 AM HONING MACHINE OPERATOR PRODUCTION) Result CASE: [id number] PATIENT: JAYDA ALCANTAR PATHOLOGIC DIAGNOSIS: A. R FA: LARGE CELL ACANTHOMA B. R post knee: ACANTHOSIS AND HYPERKERATOSIS (see microscopic description and comment) CLINICAL DATA: A: R/O Lentigo, irregular border, irregular color. B: R/O Nevus, growing. GROSS DESCRIPTION: A: Received is one formalin filled container labeled with the patient's name and designated right FA. The specimen consists of a shave measuring 8x8x1 mm. Jar 0. B: Received is one formalin filled container labeled with the patient's name and designated right post knee. The specimen consists of a shave measuring 5x3x1 mm. Jar 0. MICROSCOPIC DESCRIPTION: SPECIMEN A: Sections show compact orthokeratosis with acanthosis composed of slightly larger keratinocytes with basal layer hyperpigmentatio n. SPECIMEN B: Sections show a shave biopsy with acanthosis and hyperkeratosis. There is minimal dermis present for evaluation with scattered fibroblasts. COMMENT: These histological findings can be seen in a superficial biopsy of a dermatofibroma. Electronically signed out by Saar Camilo M.D. 04/03/2013 1:50:02PM [facility] Comment: Performed at: Dermatopathology Laboratory [facility] Department of Dermatology [address] [place] [address] 5th [place] [address] Phone number: [phone] FAX: [phone] 03/28/2013 04/02/2013 Heide Castanon MD LAB - PATHOLOGY/CYT OLOGY ORDERABLES [facility] [address] [place] [address]. 5th Floor Lab B [address] [phone] Care Teams Taxation Economist Relationship Specialty Start Date End Date Vikram Balderas DO PCP - General Internal Medicine 12/11/19
--- OUTSIDE RECORDS SUMMARY | 2024-03-14 12:04 | XMS_ITS | Clinical Summary ---
Author Organization [facility] Address [address] [place] [address] Phone Care Team Providers Care Family Day Care Provider Name Role Phone Vikram Balderas DO Primary Care Provider [phone] Allergies Active Allergy Reactions Criticality Noted Date Comments Acetaminophen 11/24/2014 Fluticasone-Salmeterol Epinephrine 11/24/2014 Fluticasone 11/24/2014 Hydrocodone 11/24/2014 Hydrocodone-Acetaminophen Naproxen Oxycodone 11/24/2014 Oxycodone Hcl Salmeterol 11/24/2014 Tiotropium [place] Monohydrate Sulfa Antibiotics Medications Medication Sig Dispensed Refills Start Date End Date Status atenolol (TENORMIN) 50 MG tablet 1 bid 0 04/05/2018 Active esomeprazole (NEXIUM) [address] capsule 1 daily 0 04/09/2018 Active albuterol HFA (PROAIR HFA) 108 (90 Base) MCG/ACT inhaler 1 bid 0 04/05/2018 Active montelukast (SINGULAIR) 10 MG tablet 1 dailhy 0 04/05/2018 Active Cholecalciferol (VITAMIN D3) 2000 units tablet Take by mouth Active atorvastatin (LIPITOR) 10 MG tablet 11/21/2019 Active cetirizine (ZyrTEC) 10 MG tablet Take 10 mg by mouth daily Active Probiotic capsule Take 1 capsule by mouth 3 times daily Active terbinafine (LamISIL) 250 MG tablet 11/29/2019 Active Symbicort 160-4.5 MCG/ACT inhaler 01/17/2020 Active losartan (COZAAR) 50 MG tablet Take 50 mg by mouth 1 (one) time each day Active verapamil SR (CALAN-SR) 180 MG CR tablet Take 90 mg by mouth every night Active gabapentin (NEURONTIN) 100 MG capsule 05/27/2020 Active valACYclovir (VALTREX) 500 MG tablet prn 06/04/2021 Active Active Problems Problem Noted Date Diagnosed Date Stage 3a chronic kidney disease 04/09/2018 Essential (primary) hypertension 04/09/2018 Polyneuropathy 04/09/2018 Gastro-esophageal reflux disease without esophag itis 04/09/2018 Vitamin D deficiency 04/09/2018 Immunizations Name Administration Dates Next Due Fluzone High-Dose 11/22/2019 Hepatitis B 03/23/2012,10/25/2011,09/21/2011 Influenza (IM) Preservative Free 02/17/2017,12/06/2015,11/05/2014 Influenza Split High Dose Pr eservative Free IM 11/27/2017 Influenza TIV (IM) 11/20/2020 Pneumococcal Conjugate 08/20/2020 Tdap 11/05/2014 Typhoid Inactivated 11/05/2014 Zoster 06/28/2012 Family History Medical History Relation Comments Kidney disease Neg Hx Social History Tobacco Use Types Packs/Day Years Used Date Smoking Tobacco: Never Smokeless Tobacco: Never Alcohol Use Standard Drinks/Week Comments Yes 0 (1 standard drink = 0.6 oz pur e alcohol) Alcoholic Drinks/day: occ Sex and Gender Information Value Date Recorded Sex Assigned at Not on file Gender Identity Not on file Sexual Orientation Not on file Last Filed Vital Signs Vital Sign Reading Time Taken Comments Blood Pressure 122/70 08/25/2021 11:16 AM CDT Pulse 72 08/25/2021 11:16 AM CDT Temperature 36.9 C (98.5 F) 08/25/2021 11:16 AM CDT Respiratory Rate - - Oxygen Saturation - - Inhaled Oxygen Concentration - - Weight 77.1 kg (170 lb) 08/25/2021 11:16 AM CDT Height 165.1 cm (5' 5 ) 08/25/2021 11:16 AM CDT Body Mass Index 28.29 08/25/2021 11:16 AM CDT Plan of Treatment Health Maintenance Due Date Last Done Comments Pneumococcal PPSV23/PCV13 65 + Years / High and Highest Risk (1 of 4 - PCV) 02/23/1956 Influenza Vaccine (#1) 2023 1, 02/17/2017, 01/11/2016, Additional history exists Care Teams Family Day Care Provider Relationship Specialty Start Date End Date Vikram Balderas DO [address] [place] [id number] PCP - General Internal Medicine 05/23/18
--- OUTSIDE RECORDS SUMMARY | 2024-03-14 12:04 | XMS_ITS | Referral Summary ---
Author Organization [facility] Address [address] [place] [address] Care Team Providers Care Lumite Injector Name Role Phone Vikram Balderas DO Primary Care Provider [phone] Source Comments [facility] Affiliates and Associated Physician Practices is amultiple site organization consisting of ambulatory clinics and hospital sitesin [place], [place], [place] and [place]. This disclosure is being madepursuant to the Care Everywhere program and may not contain all information available regarding this patient. Last updated 17.[facility] Social History Tobacco Use Types Packs/Day Years Used Date Smoking Tobacco: Never Assessed Sex and Gender Information Value Date Recorded Sex Assigned at Not on file Gender Identity Not on file Sexual Orientation Not on file Plan of Treatment Not on file Care Teams Lumite Injector Relationship Specialty Start Date End Date Vikram Balderas DO PCP - General Internal Medicine 12/11/19
--- OUTSIDE RECORDS SUMMARY | 2024-03-14 12:04 | XMS_ITS | Clinical Summary ---
Author Organization [facility] Address [address] [place] [address] Care Team Providers Care Pollution Control Engineer Name Role Phone Vikram Balderas DO Primary Care Provider [phone] Source Comments [facility],non-owned Affiliates and Associated Physician Practices is amultiple site organization consisting of ambulatory clinics and hospital sitesin [place], [place], [place] and [place]. This disclosure is being madepursuant to the Care Everywhere program and may not contain all information available regarding this patient. Last updated 17.[facility] [place] Social History Tobacco Use Types Packs/Day Years Used Date Smoking Tobacco: Never Assessed Sex and Gender Information Value Date Recorded Sex Assigned at Not on file Gender Identity Not on file Sexual Orientation Not on file Plan of Treatment Health Maintenance Due Date Last Done Comments BONE DENSITY TESTING 1950 COLOGUARD (AGES 45-75) - COLON CA SCREENING 1950 COLON MONITORING 1950 COLONOSCOPY - COLON CA SCREENING 1952 CT COLONOGRAPHY - COLON CA SCREENING 1950 Colorectal Cancer Screening 1950 FIT - COLON CA SCREENING 1950 FLEX SIG - COLON CA SCREENING 1950 LIPID TESTING 1950 MAMMOGRAM 1950 HEPATITIS C SCREENING 02/19/1970 DTAP/TDAP/TD VACCINES (1 - Tdap) 02/23/1971 PNEUMOCOCCAL VACCINE 50+ (1 of 1 - PCV) 02/23/2002 ZOSTER VACCINE (1 of 2) 02/23/2002 COVID-19 VACCINE (1 - 2023-25 season) 2023 INFLUENZA VACCINE (#1) 2023 8, 02/17/2017, 01/11/2016, Additional history exists DEPRESSION SCREENING 02/07/2024 Respiratory Syncytial Virus (RSV) Vaccine Pt: or over 60 yrs (1 - 1-dose 75+ series) 02/23/2027 HEPATITIS B VACCINE Aged Out No longe r eligible based on patient's age to complete this topic HIB VACCINE Aged Out No longer eligi ble based on patient's age to complete this topic HPV VACCINE Aged Out No longer eligi ble based on patient's age to complete this topic MENINGOCOCCAL (Group B) VACCINE Aged Out No longer eligible based on patient's age to complete this topic MENINGOCOCCAL VACCINE Aged Out No baron dominique eligible based on patient's age to complete this topic Care Teams Pollution Control Engineer Relationship Specialty Start Date End Date Vikram Balderas DO PCP - General Internal Medicine 12/11/19
--- OUTSIDE RECORDS SUMMARY | 2024-03-14 12:04 | XMS_ITS | Clinical Summary ---
Author Organization [facility] Peter reynoso [facility] Address [address] [place] [address] Care Team Providers Care Installation Supervisor Name Role Phone Unavailable Primary Care Provider Unavailabl e Social History Tobacco Use Types Packs/Day Years Used Date Smoking Tobacco: Never Assessed Comments Unknown Sex and Gender Information Value Date Recorded Sex Assigned at Not on file Legal Sex Female 3:18 PM QUALITY AND RELIABILITY ENGINEER Gender Identity Not on file Sexual Orientation Not on file Plan of Treatment Upcoming Encounters Date Type Department Care Team ([facility] st Contact Info) Description 06/10/2024 1:30 PM CDT Office Visit [facility] Oncology and Hematology - [place] [address] [facility] [address] [address] Rob Tong MD [address] [facility] [address] [place] [address] Health Maintenance Due Date Last Done Comments DTAP/TDAP/TD VACCINES (1 - Tdap) 02/23/1971 BREAST CANCER SCREENING 1992 COLORECTAL SCREENING 02/23/1997 Colorectal Cancer Screening 02/23/1997 FIT-DNA Q 3 years 02/23/1997 FIT/FOBT Q 1 year 02/23/1997 Flex Sig/CT Colonography Q 5 years 02/23/1997 PNEUMOCOCCAL VACCINE 65+ YEARS (1 of 1 - PCV) 02/23/19 03 ZOSTER VACCINE (1 of 2) 02/23/2002 OSTEOPOROSIS SCREENING 02/23/2017 INFLUENZA VACCINE (#1) 2023 RSV VACCINE (60+ or ) (1 - 1-dose 75+ series) 02/23/2027 Insurance [facility] [id number]
== END 2024-03-14 12:02 | disposition home or self-care (01) ==
LOC: CHSIMG 12:01
PROVIDERS: PCP Family Medicine; Visit Provider Obstetrics & Gynecology
DX: Z78.0 Asymptomatic menopausal state (principal); M85.89 Other specified disorders of bone density and structure, multiple sites
CPT/HCPCS: 77080

== ENCOUNTER 2024-05-13 07:55 | Outpatient (CLI) | payer MEDICARE, SELFPAY ==
--- NOTE | ~2024-05-13 | XR_ITS ---
EXAMINATION: XR UGIAC w barium swallow DATE: 05/13/2024 09:13 INDICATION: Diaphragmatic hernia without obstruction TECHNIQUE: The patient drank thick barium, gas-producing crystals, and thin barium. A total of 1228 f luoroscopic images of the hypopharynx, esophagus, stomach, and proximal small bowel were obtained. Fl uoroscopy exposure time was 1.8 minutes. Total DAP was 9.021 Gycm^2. COMPARISON: CT abdomen pelvis dated 03/04/2017 FINDINGS: The pharynx is symmetric and without evidence of mass lesion or mucosal irregularity. The esophagus i s normal without mass or stricture. Esophageal motility is normal. There is no hiatal hernia. There w as a spontaneous episode of gastroesophageal reflux of a large amount of contrast extending to the up per thoracic esophagus during the double contrast portion of the examination. A second similar episod e of gastroesophageal reflux was able to be elicited with provocative maneuvers. The stomach and prox imal small bowel are normal. IMPRESSION: 1. Gastroesophageal reflux without hiatal hernia. Reviewed, dictated and finalized at location A.
--- OUTSIDE RECORDS SUMMARY | 2024-05-13 08:01 | XMS_ITS | Clinical Summary ---
Author Organization [place] [id number] [facility] Address [address] [place] [address] Care Team Providers Care Telesales Representative Name Role Phone Kate Ybarra MD Primary Care Provider [phone] Allergies Active Allergy Reactions Criticality Noted Date Comments Fluticasone Unknown 11/24/2014 Fluticasone Propion-Salmeterol Swollen tongue High 04/03/2018 Hydrocodone Itching Low 11/24/2014 Itching Naproxen Headache Low 04/03/2018 Oxycodone Itching Low 11/24/2014 Itching Salmeterol Unknown 11/24/2014 Sulfa Nausea & Vomiting Low 04/03/2018 Sulfa (Sulfonamide Antibiotics) Stomach upset,Nausea & Vomiting Low 01/07/2016 Stomach/GI Upset Tiotropium [place] Swollen tongue High 04/03/2018 Medications albuterol HFA (PROVENTIL HFA,VENTOLIN HFA,PROAIR HFA) 90 mcg/actuation inhaler Inhale 9 Active atenoloL (TENORMIN) 50 mg tablet Take 1 tablet (50 mg total) by mouth 2 (two) times a day 9 Active cetirizine (ZyrTEC) 10 mg tablet Take 1 tablet (10 mg total) by mouth daily 6 Active cholecalciferol (VITAMIN D-3) 2000 unit tablet Take by mouth Active EPINEPHrine 0.3 mg/0.3 mL auto-injection syringe Inject into the muscle as instructed 4 Active montelukast (SINGULAIR) 10 mg tablet Take by mouth 9 Active pregabalin (LYRICA) 50 mg capsule TAKE 1 CAPSULE BY MOUTH EVERY DAY AT BEDTIME 4 Active valACYclovir (VALTREX) 1 gram tablet as needed Active tavaborole 5 % solution with applicator APPLY TOPICALLY TO AFFECTED NAILS ONCE DAILY 4 Active verapamil SR (CALAN SR) 180 mg CR tablet Take 0.5 tablets (90 mg total) by mouth 3 Active atorvastatin (LIPITOR) 10 mg tablet Take 1 tablet (10 mg total) by mouth daily Active irbesartan (AVAPRO) 300 mg tablet Take 1 tablet (300 mg total) by mouth daily 5 Active famotidine (PEPCID) 20 mg tablet Take 1 tablet (20 mg total) by mouth 2 (two) times a day Active aspirin 81 mg enteric coated tablet Take 1 tablet (81 mg total) by mouth daily Active alpha lipoic acid 200 mg capsule Take by mouth Active vitamin B complex capsule Take 1 capsule by mouth daily Active multivitamin with minerals tablet Take 1 tablet by mouth daily Active azelastine (ASTELIN) 137 mcg (0.1 %) nasal sprayIndications :Allergic rhinitis, unspecified seasonality, unspecified trigger Administer 1 spray into each nostril 2 (two) times a day Use in each nostril as directed 30 mL 3 5 Active fluticasone propionate (FLONASE) 50 mcg/actuation nasal sprayIndications :Allergic rhinitis, unspecified seasonality, unspecified trigger Administer 1 spray into each nostril 2 (two) times a day 16 g 3 5 Active Active Problems Problem Noted Date Diagnosed Date Moderate persistent asthma, uncomplicated 2023 Hypertension 09/27/2023 Hyperlipidemia 09/27/2023 Coronary artery calcification seen on CAT scan 0 09/27/2023 Gastro-esophageal reflux disease without esophag itis 04/09/2018 Polyneuropathy 04/09/2018 Stage 3a chronic kidney disease 04/09/2018 Encounters Date Type Department Care Team Description 04/18/2024 1:00 PM CDT Office Visit [facility] Orthopedic and Sports Medicine [address] [place] [phone] Nakia Goddard PA Saphenous neuralgia, right (Primary Dx); Saphenous neuralgia, left; Chronic pain of both lower extremities; Neuropathy involving both lower extremities 04/02/2024 3:00 PM PLODDER OPERATOR Office Visit [facility] [address] [place] [address] Evon Villeda MD PhD Allergic conjunctivitis of both eyes (Primary Dx); Allergic rhinitis, unspecified seasonality, unspecified trigger 03/26/2024 10:30 AM PLODDER OPERATOR Office Visit [facility] Cardiology [address] [place] [address] Saadia He NP Coronary artery calcification seen on CAT scan (Primary Dx); Tachycardia; Renovascular hypertension 02/20/2024 9:30 AM PLODDER OPERATOR Office Visit [facility] Orthopedic and Sports Medicine [address] [place] [phone] Nakia Goddard PA Chronic pain of both knees (Primary Dx); Pes anserinus bursitis of both knees; Saphenous neuralgia, left; Saphenous neuralgia, right 02/20/2024 9:25 AM PLODDER OPERATOR Ancillary Procedure [facility] Imaging at [address] [phone] Chronic pain of both knees 02/20/2024 9:20 AM PLODDER OPERATOR Ancillary Procedure [facility] Imaging at [address] [address] Chronic pain of both knees from Last 3 Months Social History Tobacco Use Types Packs/Day Years Used Date Smoking Tobacco: Never Passive Smoke Exposure: Never Smokeless Tobacco: Never Tobacco Cessation:Counseling Given: Not Answered Comments Unknown Sex and Gender Information Value Date Recorded Sex Assigned at Not on file Legal Sex Female 7:52 AM PLODDER OPERATOR Gender Identity Not on file Sexual Orientation Not on file Obstetrics History Last Filed Vital Signs Vital Sign Reading Time Taken Comments Blood Pressure 128/74 04/18/2024 12:55 PM CDT Pulse 82 04/18/2024 12:55 PM CDT Temperature 36.9 C (98.4 F) 04/02/2024 2:52 PM PLODDER OPERATOR Respiratory Rate 18 04/02/2024 2:52 PM PLODDER OPERATOR Oxygen Saturation 96% 04/02/2024 2:52 PM PLODDER OPERATOR Inhaled Oxygen Concentration - - Weight 79.4 kg (175 lb) 04/18/2024 12:55 PM CDT Height 160 cm (5' 3 ) 04/18/2024 12:55 PM CDT Body Mass Index 31 04/18/2024 12:55 PM CDT Plan of Treatment Health Maintenance Due Date Last Done Comments Breast Cancer Screening-Mammogram 1950 Colon Cancer Screening-Colonoscopy 1950 Depression Screening 1950 Fall Risk Assessment 1950 Hepatitis C Screening 1950 Osteoporosis Screening-Bone Density Scan 1950 Zoster Vaccine (2 of 3) 08/23/2012 06/28/2012 Well Visit 65+ 02/23/2017 Pneumococcal vaccine 65+ (2 of 2 - PPSV23) 10/15/2020 08/20/2020, 08/02/2005 Influenza Vaccine (Season Ended) 2024 11/20/2020, 12/09/2018, 11/27/2017, Additional history exists DTaP/Tdap/Td Vaccine (2 - Td or Tdap) 11/05/2024 11/05/2014 Hepatitis B Screening Completed 03/23/2012 , 10/25/2011, 09/21/2011 Procedures Procedure Name Priority Date/Time Associated Diagnosis Comments [place] ARTHROCENTESIS ASPIR&/INJ MAJOR JT/BURSA W/O US Routine 02/20/2024 9:30 AM PLODDER OPERATOR Pes anserinus bursitis of both knees XR KNEE BILATERAL 4 OR MORE VIEWS Schedule Routine, Read Routine (OP Routine) 02/20/2024 9:26 AM PLODDER OPERATOR Chronic pain of both knees XR PELVIS 1 OR 2 VIEWS Schedule Routine, Read Routine (OP Routine) 02/20/2024 9:26 AM PLODDER OPERATOR Chronic pain of both knees from Last 3 Months Results * [place] ARTHROCENTESIS ASPIR&/INJ MAJOR JT/BURSA W/O US (02/20/2024 9:30 AM PLODDER OPERATOR) Narrative Bhavesh Green MD - 02/20/2024 9:30 AM PLODDER OPERATOR Nakia Goddard PA 02/23/2024 11:03 AM Large [...] 4 or More Views (02/20/2024 9:26 AM PLODDER OPERATOR) Anatomical Region Laterality Modality Lower Extremities, Knee Digital Radiography Narrative 02/20/2024 9:48 AM PLODDER OPERATOR Radiographs of the bilateral knees reviewed interpreted. No acute fractures or destructive osseous lesions seen. Tricompartmental degenerative changes present. Findings moderate to advanced within the medial compartment of the right knee with posterior [id number] joint space narrowing, osteophyte formation and subchondral cyst seen of the trochlea. Left knee demonstrates moderate medial and patellofemoral degenerative changes with joint space narrowing and subchondral cysts seen of the patella. Nakia DENISE IMG XR PROCEDURES Final Result * XR Pelvis 1 or 2 Views (02/20/2024 9:26 AM PLODDER OPERATOR) Anatomical Region Laterality Modality Body, Pelvis N/A Digital Radiogra phy Narrative 02/20/2024 9:47 AM PLODDER OPERATOR X-ray of the pelvis viewed and interpreted. There is no evidence of fracture, subluxation, or bony abnormality. Femoral acetabular joint space is overall maintained. Enthesophytes present of the bilateral greater trochanter. Nakia DENISE IMG XR PROCEDURES Final Result from Last 3 Months Insurance [facility] CHOICE [facility] MEDICARE ADVANTAGE [facility] MEDICARE ADVANTAGE Care Teams Telesales Representative Relationship Specialty Start Date End Date Kate Ybarra MD [address] [place] [address] PCP - General Family Medicine 09/27/23
--- OUTSIDE RECORDS SUMMARY | 2024-05-13 08:01 | XMS_ITS | Referral Summary ---
Author Organization [facility] [address] [facility] Address [address] [place] [address] Care Team Providers Care Ell Teacher Name Role Phone Kate Ybarra MD Primary Care Provider [phone] Encounters Date Type Department Care Team Description 04/18/2024 1:00 PM CDT Office Visit [facility] Orthopedic and Sports Medicine [address] [place] [address] Nakia Goddard PA Saphenous neuralgia, right (Primary Dx); Saphenous neuralgia, left; Chronic pain of both lower extremities; Neuropathy involving both lower extremities 04/02/2024 3:00 PM HOME HEALTH CARE PHYSICIAN Office Visit [facility] Allergy and Immunology [address] [place] [address] Evon Villeda MD PhD Allergic conjunctivitis of both eyes (Primary Dx); Allergic rhinitis, unspecified seasonality, unspecified trigger 03/26/2024 10:30 AM HOME HEALTH CARE PHYSICIAN Office Visit [facility] Cardiology [address] [address] [facility] [address] [place] [address] Saadia He NP Coronary artery calcification seen on CAT scan (Primary Dx); Tachycardia; Renovascular hypertension 02/20/2024 9:25 AM HOME HEALTH CARE PHYSICIAN Ancillary Procedure [facility] Imaging at [address] [address] Chronic pain of both knees 02/20/2024 9:20 AM HOME HEALTH CARE PHYSICIAN Ancillary Procedure [facility] Imaging at [address] [phone] Chronic pain of both knees 02/20/2024 9:30 AM HOME HEALTH CARE PHYSICIAN Office Visit [facility] Orthopedic and Sports Medicine [address] [place] [phone] Nakia Goddard PA Chronic pain of both knees (Primary Dx); Pes anserinus bursitis of both knees; Saphenous neuralgia, left; Saphenous neuralgia, right from Last 3 Months Allergies Active Allergy Reactions Criticality Noted Date Comments Fluticasone Unknown 11/24/2014 Fluticasone Propion-Salmeterol Swollen tongue High 04/03/2018 Hydrocodone Itching Low 11/24/2014 Itching Naproxen Headache Low 04/03/2018 Oxycodone Itching Low 11/24/2014 Itching Salmeterol Unknown 11/24/2014 Sulfa Nausea & Vomiting Low 04/03/2018 Sulfa (Sulfonamide Antibiotics) Stomach upset,Nausea & Vomiting Low 01/07/2016 Stomach/GI Upset Tiotropium [place] Swollen tongue High 04/03/2018 Medications albuterol HFA [...] on file Legal Sex Female 7:52 AM HOME HEALTH CARE PHYSICIAN Gender Identity Not on file Sexual Orientation Not on file Last Filed Vital Signs Vital Sign Reading Time Taken Comments Blood Pressure 128/74 04/18/2024 12:55 PM CDT Pulse 82 04/18/2024 12:55 PM CDT Temperature 36.9 C (98.4 F) 04/02/2024 2:52 PM HOME HEALTH CARE PHYSICIAN Respiratory Rate 18 04/02/2024 2:52 PM HOME HEALTH CARE PHYSICIAN Oxygen Saturation 96% 04/02/2024 2:52 PM HOME HEALTH CARE PHYSICIAN Inhaled Oxygen Concentration - - Weight 79.4 kg (175 lb) 04/18/2024 12:55 PM CDT Height 160 cm (5' 3 ) 04/18/2024 12:55 PM CDT Body Mass Index 31 04/18/2024 12:55 PM CDT Plan of Treatment Not on file Procedures Procedure Name Priority Date/Time Associated Diagnosis Comments CT ARTHROCENTESIS ASPIR&/INJ MAJOR JT/BURSA W/O US Routine 02/20/2024 9:30 AM HOME HEALTH CARE PHYSICIAN Pes anserinus bursitis of both knees XR KNEE BILATERAL 4 OR MORE VIEWS Schedule Routine, Read Routine (OP Routine) 02/20/2024 9:26 AM HOME HEALTH CARE PHYSICIAN Chronic pain of both knees XR PELVIS 1 OR 2 VIEWS Schedule Routine, Read Routine (OP Routine) 02/20/2024 9:26 AM HOME HEALTH CARE PHYSICIAN Chronic pain of both knees from Last 3 Months Results * CT ARTHROCENTESIS ASPIR&/INJ MAJOR JT/BURSA W/O US (02/20/2024 9:30 AM HOME HEALTH CARE PHYSICIAN) Bhavesh De Leon MD - 02/20/2024 9:30 AM HOME HEALTH CARE PHYSICIAN Nakia Goddard PA 02/23/2024 11:03 AM Large [...] 4 or More Views (02/20/2024 9:26 AM HOME HEALTH CARE PHYSICIAN) Anatomical Region Laterality Modality Lower Extremities, Knee Digital Radiography Narrative 02/20/2024 9:48 AM HOME HEALTH CARE PHYSICIAN Radiographs of the bilateral knees reviewed interpreted. No acute fractures or destructive osseous lesions seen. Tricompartmental degenerative changes present. Findings moderate to advanced within the medial compartment of the right knee with posterior byor-fk-ywyn joint space narrowing, osteophyte formation and subchondral cyst seen of the trochlea. Left knee demonstrates moderate medial and patellofemoral degenerative changes with joint space narrowing and subchondral cysts seen of the patella. Nakia DENISE IMG XR PROCEDURES Final Result * XR Pelvis 1 or 2 Views (02/20/2024 9:26 AM HOME HEALTH CARE PHYSICIAN) Anatomical Region Laterality Modality Body, Pelvis N/A Digital Radiogra phy Narrative 02/20/2024 9:47 AM HOME HEALTH CARE PHYSICIAN X-ray of the pelvis viewed and interpreted. There is no evidence of fracture, subluxation, or bony abnormality. Femoral acetabular joint space is overall maintained. Enthesophytes present of the bilateral greater trochanter. Nakia DENISE IMG XR PROCEDURES Final Result from Last 3 Months Insurance [employer] Care Teams Ell Teacher Relationship Specialty Start Date End Date Kate Ybarra MD [address] [place] [address] PCP - General Family Medicine 09/27/23
--- OUTSIDE RECORDS SUMMARY | 2024-05-13 08:01 | XMS_ITS | Data Portability ---
Author Organization [facility] Main Office Address [address] [place] [address] Care Team Providers Care Plater Helper Name Role Phone ORQUIDEA AQUINO Primary Care Provider [phone] ORQUIDEA AQUINO Referring Provider Assessment Encounter Date Assessment Date Assessment LastModified by Organization Details LastModified Time 07/11/2023 07/11/2023 73-year-old female presents for evaluation of her bilateral knees, right worse than left. She reports pain for several years since 2019. 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 Since then, the [...] None recorded. Referral physical therapist referral - Please contact patient to schedule 2023 024 [email or web address] [facility], [address], [place], [address], 14:48:30 physical therapist referral - eval and treat 2023 024 FRANKIE [facility], [address], [place], [address], 11:28:09 Procedures injection/a spiration joint/bursa (PROC) 2023 024 [email or web address] In-Office Order, Internal Use Only DO Not Attach Compendium DO Not Attach Compendium, Do Not Delete/merge, [address] 16:17:13 Surgeries None recorded. Imaging XR, knee, 3 view 2023 024 FRANKIE [facility] [place], [address], [place], [address], 4 08:48:24 Medication Orders bupivacaine HCl 0.5 [...] 3 view No observ ation record ed. [email or web address] [facility] [place] [address], [place], [address], 07/11/2023 11:13:33 Result Notes None recorded. Problems Name Problem SNOMED Code Status Onset Date Resolution Date Notes Provider Name and Address Organization Details Recorded Time Pain of bilateral knee joints 67155621564481 4 Active 2023 DINO Delgado [facility], [facility] 11:13:15 Problem Notes None recorded. Procedures Surgical History Date Name Laterality Status Provider Name and Address Organization Details Recorded Time 07/11/19 24 Ortho - Cortisone Injection completed Vikram Mello MD [address] [place] [address], [place] [address], [place], [address], [place] 07/11/2023 15:13:40 Hysterectomy completed DINO Delgado [facility] 07/11/2023 11:09:50 Knee Surgery completed DINO Delgado [facility] 07/11/2023 11:10:02 Imaging Results Imaging Date Name Status LastModified by Organiz ation Details LastModified Time 07/11/2023 XR, knee, 3 view completed [email or web address] [facility] [place] [address], [place], [address], 07/11/2023 11:13:33 Procedure Notes None recorded. Medical Equipment None Reported. Allergies Allergen ID Allergen Name Allergen Category Reaction Reaction Severity Criticality Documentation Date Start Date Code Code System Note Provider Name and Address Organization Details Recorded Time 74428 Substance with sulfonami de structure and antibacte rial mechanism of action (substanc e) medicatio n Not available Not available Not available 07/11/2023 72826 8003 SNOMED Clarice RahmanKARLNathalie [facility], [facility] 11:05:54 Medications Name Sig Start Date Stop [...] Updated DateTime 07/11/2023 162.56 cm 29.5 kg/m2 63451.89 g 5 Clarice Rahman AKRLNathalie [employer] [facility] Path 07/11/2023 11:05:37 Date Recorded Body height Body mass index (BMI) Body weight Pain severity - 0-10 verbal numeric rating [Score] - Reported Provider Name and Address Organization Details Last Updated DateTime 10/18/2023 162.56 cm 29.5 kg/m2 36026.89 g 5 Clarice Rahman KARLNathalie [employer] [facility] Path 10/18/2023 09:26:12 Social History Question Answer Notes LastModified by [employer] ion Details LastModified Time Tobacco Smoking Status Unknown If Ever Smoked DINO Delgado [facility] Path 07/11/2023 11:09:34 What Is Your Level Of Alcohol Consumption? Moderate [email or web address] Information not available 07/11/2023 What Was The Date Of Your Most Recent Tobacco Screening? 10/18/2023 Information not available 10/18/2023 Sex: Unknown Functional Status None recorded. Mental Status None recorded. Family History Relationship Description Onset Age of this Age Resolved Age Notes LastModified by Organization Details LastModified Time Mother Family history of malignant neoplasm Not available 2023 11:08:15 Paternal Grandfather Diabetes mellitus [email or web address] Not available 2023 11:08:28 Father Heart disease [email or web address] Not available 2023 11:08:40 Father Hypertensive disorder [email or web address] Not available 2023 11:08:58 Medical History Condition Response LUNG DISEASE/DISORDER Y HEART DISEASE/HEART PROBLEMS Y HYPERTENSION Y CANCER: SPECIFY Y OSTEOARTHRITIS Y Gynecological HistoryNo gynecological history recorded. Obstetrics History GPAL:G 0 P 0 0 0 0 Past Encounters Encounter ID Performer Location Encounter Start Date Encounter Closed Date Diagnosis/Indication Diagnosis SNOMED-CT Code Diagnosis ICD10 Code Diagnosis Note [id number] Vikram Mello MD [facility] [place] [address] [place] [address] 07/11/2023 10:40:41 07/11/2023 12:03:39 Pain of bilateral knee joints 7274933680 20512 M25.843 [id number] Vikram Mello MD [facility] [place] [address] [place] [address] 10/18/2023 09:22:07 10/18/2023 10:36:26 Pain of bilateral knee joints 2652161719 85842 M25.569 Health Concerns Section Related Observation LastModified by Organization Detai ls LastModified Time None Recorded Concern Status LastModified by Organization Details LastModified Time None Recorded Advance Directives Directive None Recorded Payers Encounter Date Sequence Insurance Name Policy Number Policy Owens Covered Member ID Owens Member ID Guarantor Name 07/11/2023 1 [facility] (MEDICARE REPLACEMENT/A DVANTAGE - PPO) [id number] Jayda L Lindsey [id number] Jaydanathalie Lindsey 10/18/2023 1 [facility] (MEDICARE REPLACEMENT/A DVANTAGE - PPO) [id number] Jayda L Lindsey [id number] Jayda Lindsey OBGyn Episode No OBEpisode recorded.
--- OUTSIDE RECORDS SUMMARY | 2024-05-13 08:01 | XMS_ITS | Clinical Summary ---
Author Organization [facility] Address [address] [place] [address] Phone Care Team Providers Care Quality Assurance Qa Lab Technician Name Role Phone Vikram Balderas DO Primary Care Provider [phone] Allergies Active Allergy Reactions Criticality Noted Date Comments Acetaminophen 11/24/2014 Fluticasone-Salmeterol Epinephrine 11/24/2014 Fluticasone 11/24/2014 Hydrocodone 11/24/2014 Hydrocodone-Acetaminophen Naproxen Oxycodone 11/24/2014 Oxycodone Hcl Salmeterol 11/24/2014 Tiotropium [place] Monohydrate Sulfa Antibiotics Medications Medication Sig Dispensed [...] Comments Pneumococcal PPSV23/PCV13 65 + Years / Low and Medium Risk (1 of 4 - PCV) 02/23/2017 Influenza Vaccine (Season Ended) 2024 11/20/2020, 02/17/2017, 01/11/2016, Additional history exists Care Teams Quality Assurance Qa Lab Technician Relationship Specialty Start Date End Date Vikram Balderas DO [address] [place] [address] PCP - General Internal Medicine 05/23/18
--- OUTSIDE RECORDS SUMMARY | 2024-05-13 08:02 | XMS_ITS | Clinical Summary ---
Author Organization [facility] Address [address] [place] [address] Care Team Providers Care Chef Name Role Phone Vikram Balderas DO Primary Care Provider [phone] Source Comments [facility],non-owned Affiliates and Associated Physician Practices is amultiple site organization consisting of ambulatory clinics and hospital sitesin [place], [place], [place] and [place]. This disclosure is being madepursuant to the Care Everywhere program and may not contain all information available regarding this patient. Last updated 17.[facility] [employer] Social History Tobacco Use Types Packs/Day Years [...] COVID-19 VACCINE (1 - 2023-25 season) 2023 DEPRESSION SCREENING 02/07/2024 MEDICARE AWV CALENDAR YEAR 2024 INFLUENZA VACCINE (Season Ended) 2024 11/27/2017, 02/17/2017, 01/11/2016, Additional history exists Respiratory Syncytial Virus (RSV) Vaccine Pt: or [...] complete this topic MENINGOCOCCAL (Group B) VACCINE SHARED DECISION-MAKING Aged Out No longer eligible based on patient's age to complete this topic MENINGOCOCCAL GROUPS A/C/Y/W VACCINE Aged Out No longer eligible based on patient's age to complete this topic Care Teams Chef Relationship Specialty Start Date End Date Vikram Balderas DO PCP - General Internal Medicine 12/11/19
--- OUTSIDE RECORDS SUMMARY | 2024-05-13 08:02 | XMS_ITS | Clinical Summary ---
Author Organization [facility] Peter reynoso [facility] Address [address] [place] [address] Care Team Providers Care Paper And Prints Restorer Name Role Phone Unavailable Primary Care Provider Unavailabl e Social History Tobacco Use Types Packs/Day Years Used Date Smoking Tobacco: Never Assessed Comments Unknown Sex and Gender Information Value Date Recorded Sex Assigned at Not on file Legal Sex Female 3:18 PM COIL SHAPER Gender Identity Not on file Sexual Orientation Not on file Plan of Treatment Upcoming Encounters Date Type Department Care Team ([facility] st Contact Info) Description 06/10/2024 1:30 PM CDT Office Visit [facility] Oncology and Hematology - [place] [address] [facility] [address] [address] Rob Tong MD [address] [place] [address] Health Maintenance Due Date Last Done Comments DTAP/TDAP/TD VACCINES (1 - Tdap) 02/23/1971 BREAST CANCER SCREENING 1992 COLORECTAL SCREENING 02/23/1997 Colorectal Cancer Screening 02/23/1997 FIT-DNA Q 3 years 02/23/1997 FIT/FOBT Q 1 year 02/23/1997 Flex Sig/CT Colonography Q 5 years 02/23/1997 PNEUMOCOCCAL VACCINE 50+ YEARS (1 of 1 - PCV) 02/23/19 03 ZOSTER VACCINE (1 of 2) 02/23/2002 OSTEOPOROSIS SCREENING 02/23/2017 INFLUENZA VACCINE (#1) 2023 RSV VACCINE (60+ or ) (1 - 1-dose 75+ series) 02/23/2027 Insurance [facility] [id number]
--- OUTSIDE RECORDS SUMMARY | 2024-05-13 08:02 | XMS_ITS | Clinical Summary ---
Author Organization [facility] Address [address] [place] [address] Care Team Providers Care Documentation Designer Name Role Phone Vikram Balderas DO Primary Care Provider [phone] Allergies Active Allergy Reactions Criticality Noted Date [...] Comments Blood Pressure 118/66 12/19/2018 1:00 PM COMPRESSION MOLDING MACHINE OPERATOR Pulse 64 12/19/2018 1:00 PM COMPRESSION MOLDING MACHINE OPERATOR Temperature 36.4 C (97.6 F) 12/19/2018 12:46 PM COMPRESSION MOLDING MACHINE OPERATOR Respiratory Rate 16 12/19/2018 1:00 PM COMPRESSION MOLDING MACHINE OPERATOR Oxygen Saturation 100% 12/19/2018 1:00 PM COMPRESSION MOLDING MACHINE OPERATOR Inhaled Oxygen Concentration - - Weight 72.6 kg (160 lb) 12/19/2018 10:25 AM COMPRESSION MOLDING MACHINE OPERATOR Height 162.6 cm (5' 4 ) 12/19/2018 10:25 AM COMPRESSION MOLDING MACHINE OPERATOR Body Mass Index 27.46 12/19/2018 10:25 AM COMPRESSION MOLDING MACHINE OPERATOR Plan of Treatment Health Maintenance Due Date Last Done Comments Colorectal Cancer Screening Colonoscopy (10 Years) 1952 Hepatitis C 02/23/1970 DTaP, Tdap and Td Vaccines ( 1 - Tdap) 02/23/1971 Mammogram Screening 1992 Zoster Vaccines (1 of 2) 02/23/2002 Dexa Scan (General) 02/23/2017 Pneumococcal Vaccine: 65+ Ye ars (1 of 1 - PCV) 02/23/2017 COVID-19 Vaccine ( - 2023-2 5 season) 2023 RSV Immunization or 60+ Years (1 [...] to complete this topic Insurance Care Teams Documentation Designer Relationship Specialty Start Date End Date Vikram Balderas DO [address] [place] [address] PCP - General INTERNAL MEDICINE 12/17/18
== END 2024-05-13 07:56 | disposition home or self-care (01) ==
PROVIDERS: PCP Obstetrics & Gynecology; Visit Provider Nurse Practitioner
DX: K44.9 Diaphragmatic hernia without obstruction or gangrene (principal); K21.9 Gastro-esophageal reflux disease without esophagitis; R09.A2 Foreign body sensation, throat; R13.10 Dysphagia, unspecified
CPT/HCPCS: 74246

== ENCOUNTER 2024-06-04 14:15 | Outpatient (RCR) | payer MEDICARE, SELFPAY ==
--- NOTE | 2024-05-07 15:26 | OPREHPOC ---
Outpatient Therapy Plan of Care This is a Multidisciplinary Plan of Care that may contain components documented by all disciplines (PT, OT, and ST.) PT Problem 1 PT Problem #1 Knowledge Deficit PT Goal 1 Goal / Goal Update 1. Patient will perform independent HEP Target Visit 2 PT Problem 2 PT Problem #2 Pain PT Goal 1 Goal / Goal Update 1. No pain on pelvic exam to allow for full function including pelvic exam/medical management as needed. 2. Pain with ADL's no more than 2/10 Target Visit 5 PT Problem 3 PT Problem #3 Impaired Strength PT Goal 1 Goal / Goal Update 1. Improve hip strength to 5/5 rose in all planes PT Problem 4 PT Problem #4 Impaired Flexibility PT Goal 1 Goal / Goal Update 1. Normal pelvic floor muscle tone in order to reduce pain and improve function Target Visit 5
--- NOTE | 2024-05-07 15:26 | PTOPEVAL1 ---
Assessment and note entered by Shila Luna DPT Evaluation Information Assessment Status Evaluation ICD-10 Condition Codes (PT) Weakness R53.1,Pelvic and perineal pain R10.2 Subjective Information Pt reports pelvic pain, stops her ability to go out in the community or do activities at home when she is in pain. Highest 7/10 and lowest 0/10. Thinks the pain started over the winter. Pt does have kidney disease and urine output is changing- thinks she voids 13 times a day. Denies urinary incontinence. Sometimes does have pain with urination. Can hold urge to void as long as needed . BM once a day, denies pain. Some pain with most recent pelvic exam but reports no history of dyspareunia. Pt has been 1 time, vaginal delivery without complications. Partial hysterectomy in the 80s. States she was diagnosed with IBS a long time ago. Patient goal: stop the pain. Returns to MD in 1 year. Reported Pain Level Pain Score 0: Self Report Assessment PT Clinical Summary The patient is presenting to skilled therapy with a history of pelvic pain for several months. She demonstrates increased pelvic floor muscle tone and significant pain with palpation, as well as decreased hip and abdominal strength. These impairments are contributing to her pain and difficulty performing typical activities. She will benefit from skilled therapy to address these impairments in order to reduce pain and restore full function. Plan of Care Interventions Electrical Stimulation,Hot Pack/Cold Pack,Manual Therapy,Neuro Re-education,Patient/Caregiver Education,Therapeutic Activities,Therapeutic Exercise PT Services Indicated Yes Treatment Frequency and 1 time a week for 5 visits Duration These treatments will address the objective and functional deficits as defined above. The patient will be advanced safely and appropriately in order for the patient to progress towards his/her prior level of function. Additional exercises will be introduced and as well as a comprehensive home exercise program upon discharge, if needed, ?to ensure carryover of functional gains achieved in the clinic. This treatment plan has been reviewed and agreement upon by the patient.
--- NOTE | 2024-06-04 14:36 | OPREHPOC ---
Outpatient Therapy Plan of Care This is a Multidisciplinary Plan of Care that may contain components documented by all disciplines (PT, OT, and ST.) PT Problem 1 PT Problem #1 Knowledge Deficit PT Goal 1 Goal / Goal Update 1. Patient will perform independent HEP Target Visit 2 Progress Met PT Problem 2 PT Problem #2 Pain PT Goal 1 Goal / Goal Update 1. No pain on pelvic exam to allow for full function including pelvic exam/medical management as needed. 2. Pain with ADL's no more than 2/10 update 06/04/24 1. not assessed per patient request 2. met Target Visit 5 Progress Partially Met PT Problem 3 PT Problem #3 Impaired Strength PT Goal 1 Goal / Goal Update 1. Improve hip strength to 5/5 rose in all planes update 06/04/24 1. abduction 4+/5, extension 5/5 Target Visit 5 Progress Partially Met PT Problem 4 PT Problem #4 Impaired Flexibility PT Goal 1 Goal / Goal Update 1. Normal pelvic floor muscle tone in order to reduce pain and improve function update 06/04/24 1. unable to assess per patient request Target Visit 5 Progress Not Met
--- NOTE | 2024-06-04 14:36 | PTOPDC ---
Assessment and note entered by Shila Luna DPT Evaluation Information Assessment Status Discharge ICD-10 Condition Codes (PT) Weakness R53.1,Pelvic and perineal pain R10.2 Subjective Information Pt denies pain over the last week and thinks she feels good. Voiding 6 times a day and 1-2 times at night. Denies urinary incontinence. Reported Pain Level Pain Score 0: Self Report Assessment PT Clinical Summary The patient has made excellent progress and reports no pain or functional limitations over the last week. Due to her progress her case will be discharged this date. She has been educated to continue HEP and follow up with MD and/or PT as needed. Plan of Care PT Services Indicated No
== END 2024-06-14 15:18 | disposition home or self-care (01) ==
LOC: ANHPT 14:15
PROVIDERS: PCP Obstetrics & Gynecology; Visit Provider Obstetrics & Gynecology
DX: R10.2 Pelvic and perineal pain (principal)
CPT/HCPCS: 97110; 97112; 97140; 97161; 97530

== ENCOUNTER 2024-06-10 14:42 | Outpatient (CLI) | payer MEDICARE, SELFPAY ==
[2024-06-10 15:00] LABS: Basophils Absolute Auto 0.1 K/mm3 (0.0-0.1); Basophils Percent Auto 0.7 % (0.2-1.2); Eosinophils Absolute Auto 0.3 K/mm3 (0-0.3); Eosinophils Percent Auto 4.6 % (0-4.4); Hematocrit 34.5 % (37.0-47.0); Hemoglobin 11.8 g/dL (12.0-15.0); Immature Granulocyte Absolute 0.03 K/mm3 (0.00-0.031); Immature Granulocyte Percent A 0.4 % (0-0.5); Lymphocytes Absolute Auto 1.52 K/mm3 (0.9-3.2); Lymphocytes Percent Auto 21.7 % (18.3-44.2); Mean Corpuscular HGB Conc 34.2 g/dl (32-36); Mean Corpuscular Hemoglobin 31.4 pg (26-34); Mean Corpuscular Volume 91.8 fl (80-100); Mean Platelet Volume 9.5 fl (7.4-10.4); Monocytes Absolute Auto 0.7 K/mm3 (0.1-0.6); Monocytes Percent Auto 9.7 % (2.6-8.5); Neutrophils Absolute Auto 4.4 K/mm3 (1.3-6.7); Neutrophils Percent Auto 62.9 % (45.5-73.1); Platelet Count Result 288 k/mm3 (150-375); Red Blood Count 3.76 M/mm3 (4.2-5.4); Red Cell Distribution Width 12.5 % (11.5-14.5)
--- OUTSIDE RECORDS SUMMARY | 2024-06-10 15:20 | XMS_ITS | Clinical Summary ---
Author Organization [place] [id number] [facility] Address [address] [place] [address] Care Team Providers Care Binder Cutter Hand Name Role Phone Kate Ybarra MD Primary Care Provider [phone] Allergies Active Allergy Reactions Criticality Noted Date Comments Fluticasone Unknown 11/24/2014 Fluticasone Propion-Salmeterol Swollen tongue High 04/03/2018 Hydrocodone Itching Low 11/24/2014 Itching Naproxen Headache Low 04/03/2018 Oxycodone Itching Low 11/24/2014 Itching Salmeterol Unknown 11/24/2014 Sulfa Nausea & Vomiting Low 04/03/2018 Sulfa (Sulfonamide Antibiotics) Stomach upset,Nausea & Vomiting Low 01/07/2016 Stomach/GI Upset Tiotropium [place] Swollen tongue High 04/03/2018 Medications albuterol HFA [...] Description 04/18/2024 1:00 PM CDT Office Visit [facility] Orthopedic and Sports Medicine [address] [place] [address] Nakia Goddard PA Saphenous neuralgia, right (Primary Dx); Saphenous neuralgia, left; Chronic pain of both lower extremities; Neuropathy involving both lower extremities 04/02/2024 3:00 PM ANNUAL CAMPAIGN MANAGER Office Visit [facility] Allergy and Immunology [address] [facility] [address] [facility] [address] [place] [address] Evon Villeda MD PhD Allergic conjunctivitis of both eyes (Primary Dx); Allergic rhinitis, unspecified seasonality, unspecified trigger 03/26/2024 10:30 AM ANNUAL CAMPAIGN MANAGER Office Visit [facility] Cardiology [address] [place] [address] Saadia He NP Coronary artery calcification seen on CAT scan (Primary Dx); Tachycardia; Renovascular hypertension from Last 3 Months Social History Tobacco Use Types Packs/Day Years Used Date Smoking Tobacco: Never Passive Smoke Exposure: Never Smokeless Tobacco: Never Tobacco Cessation:Counseling Given: Not Answered Comments Unknown Sex and Gender Information Value Date Recorded Sex Assigned at Not on file Legal Sex Female 7:52 AM ANNUAL CAMPAIGN MANAGER Gender Identity Not on file Sexual Orientation Not on file Obstetrics History Last Filed Vital Signs Vital Sign Reading Time Taken Comments Blood Pressure 128/74 04/18/2024 12:55 PM CDT Pulse 82 04/18/2024 12:55 PM CDT Temperature 36.9 C (98.4 F) 04/02/2024 2:52 PM ANNUAL CAMPAIGN MANAGER Respiratory Rate 18 04/02/2024 2:52 PM ANNUAL CAMPAIGN MANAGER Oxygen Saturation 96% 04/02/2024 2:52 PM ANNUAL CAMPAIGN MANAGER Inhaled Oxygen Concentration - - Weight 79.4 [...] B Screening Completed 03/23/2012 , 10/25/2011, 09/21/[address] [facility] CHO[facility] MEDICARE ADVANTAGE [facility] MEDICARE ADVANTAGE Care Teams Binder Cutter Hand Relationship Specialty Start Date End Date Kate Ybarra MD [address] [place] [address] PCP - General Family Medicine 09/27/23
--- OUTSIDE RECORDS SUMMARY | 2024-06-10 15:20 | XMS_ITS | Data Portability ---
Author Organization [place] - S [employer], Main Office Address [address] [place] [address] Care Team Providers Care Nurse Substance Abuse Name Role Phone ORQUIDEA AQUINO Primary Care Provider ORQUIDEA AQUINO Referring Provider Assessment Encounter Date Assessment Date Assessment LastModified by Organization Details LastModified Time 07/11/2023 07/11/2023 73-year-old female presents for evaluation of her bilateral knees, right worse than left. She reports pain for several years since 2019. 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 Since then, the [...] contact patient to schedule 2023 024 [email or web address] [facility], [address], [place], [address], 14:48:30 physical therapist referral - eval and treat 2023 024 FRANKIE [facility], [address], [place], [address], 11:28:09 Procedures injection/a spiration joint/bursa (PROC) 2023 024 [email or web address] In-Office Order, Internal Use Only DO Not Attach Compendium DO Not Attach Compendium, Do Not Delete/merge, [id number] 16:17:13 Surgeries None recorded. Imaging XR, knee, 3 view 2023 024 FRANKIE [facility] [place], [address], [place], [address], 4 08:48:24 Medication Orders bupivacaine HCl 0.5 [...] 3 view No observ ation record ed. [email or web address] [facility] [place] [address], [place], [address], 07/11/2023 11:13:33 Result Notes None recorded. Problems Name Problem SNOMED Code Status Onset Date Resolution Date Notes Provider Name and Address Organization Details Recorded Time Pain of bilateral knee joints 95092858953958 4 Active 2023 DINO Delgado [facility], Interlude 11:13:15 Problem Notes None recorded. Procedures Surgical History Date Name Laterality Status Provider Name and Address Organization Details Recorded Time 07/11/19 24 Ortho - Cortisone Injection completed Vikram Mello MD [address] [place] [address], [place] [address], [place], [address], Interlude 07/11/2023 15:13:40 Hysterectomy completed DINO Delgado [facility] 07/11/2023 11:09:50 Knee Surgery completed DINO Delgado [facility] 07/11/2023 11:10:02 Imaging Results Imaging Date Name Status LastModified by Organiz ation Details LastModified Time 07/11/2023 XR, knee, [email or web address] [facility] [place] [address], [place], [address], 07/11/2023 11:13:33 Procedure Notes None recorded. Medical Equipment None Reported. Allergies Allergen ID Allergen Name Allergen Category Reaction Reaction Severity Criticality Documentation Date Start Date Code Code System Note Provider Name and Address Organization Details Recorded Time 06653 Substance with sulfonami de structure and antibacte rial mechanism of action (substanc e) medicatio n Not available Not available Not available 07/11/2023 03192 8003 SNOMED Clarice RahmanKARLNathalie [facility], [facility] 11:05:54 Medications Name Sig Start Date Stop [...] Updated DateTime 07/11/2023 162.56 cm 29.5 kg/m2 19033.89 g 5 Clarice Rahman KARLNathalie [employer] [facility] [employer] 07/11/2023 11:05:37 Date Recorded Body height Body mass index (BMI) Body weight Pain severity - 0-10 verbal numeric rating [Score] - Reported Provider Name and Address Organization Details Last Updated DateTime 10/18/2023 162.56 cm 29.5 kg/m2 62617.89 g 5 Clarice Rahman KARLNathalie [employer] [facility] [employer] 10/18/2023 09:26:12 Social History Question Answer Notes LastModified by [employer] ion Details LastModified Time Tobacco Smoking Status Unknown If Ever Smoked DINO Delgado [facility] [employer] 07/11/2023 11:09:34 What Is Your Level Of Alcohol Consumption? Moderate [email or web address] Information not available 07/11/2023 What Was The Date Of Your Most Recent Tobacco Screening? 10/18/2023 [email or web address] Information not available 10/18/2023 Sex: Unknown Functional Status None recorded. Mental Status None recorded. Family History Relationship Description Onset Age of this Age Resolved Age Notes LastModified by Organization Details LastModified Time Mother Family history of malignant neoplasm [email or web address] Not available 2023 11:08:15 Paternal Grandfather Diabetes mellitus [email or web address] Not available 2023 11:08:28 Father Heart disease [email or web address] Not available 2023 11:08:40 Father Hypertensive disorder [email or web address] Not available 2023 11:08:58 Medical History Condition Response HEART DISEASE/HEART PROBLEMS Y CANCER: SPECIFY Y LUNG DISEASE/DISORDER Y OSTEOARTHRITIS Y HYPERTENSION Y Gynecological HistoryNo gynecological history recorded. Obstetrics History GPAL:G 0 P 0 0 0 0 Past Encounters Encounter ID Performer Location Encounter Start Date Encounter Closed Date Diagnosis/Indication Diagnosis SNOMED-CT Code Diagnosis ICD10 Code Diagnosis Note [id number] Vikram Mello MD [facility] [place] [address] [place] [address] 07/11/2023 10:40:41 07/11/2023 12:03:39 Pain of bilateral knee joints 8873352074 90452 M25.316 [id number] Vikram Mello MD [facility] [place] [address] [place] [address] 10/18/2023 09:22:07 10/18/2023 10:36:26 Pain of bilateral knee joints 3403325543 53494 M25.569 Health Concerns Section Related Observation LastModified by Organization Detai ls LastModified Time None Recorded Concern Status LastModified by Organization Details LastModified Time None Recorded Advance Directives Directive None Recorded Payers Encounter Date Sequence Insurance Name Policy Number Policy Owens Covered Member ID Owens Member ID Guarantor Name 07/11/2023 1 [facility] (MEDICARE REPLACEMENT/A DVANTAGE - PPO) [id number] Jayda L Lindsey [id number] Jaydanathalie Lindsey 10/18/2023 1 [facility] (MEDICARE REPLACEMENT/A DVANTAGE - PPO) [id number] Jayda L Lindsey [id number] Jayda Lindsey OBGyn Episode No OBEpisode recorded.
--- OUTSIDE RECORDS SUMMARY | 2024-06-10 15:20 | XMS_ITS | Encounter Summary ---
Author Organization [facility] Ervin [facility] Address [address] [place] [address] Care Team Providers Care Motorcycle Maker Name Role Phone Unavailable Primary Care Provider Unavailabl e Reason for Visit * Reason Comments Establish Care Encounter Details Date Type Department Care Team (Late st Contact Info) Description 06/10/2024 1:30 PM CDT Office Visit [facility] Oncology and Hematology - [place] [address] [facility] [facility] [address] [place] [address] Rob Tong MD [address] [place] [address] Plasma cell disorder (Primary Dx) Social History Tobacco Use Types Packs/Day Years Used Date Smoking Tobacco: Never Smokeless Tobacco: Never Alcohol Use Standard Drinks/Week Comments Yes 0 (1 standard drink = 0.6 oz pur e alcohol) occasionally Comments Unknown Sex and Gender Information Value Date Recorded Sex Assigned at Not on file Legal Sex Female 3:18 PM GOSPEL SINGER Gender Identity Not on file Sexual Orientation Not on file documented as of this encounter Last Filed Vital Signs Vital Sign Reading Time Taken Comments Blood Pressure 120/69 06/10/2024 1:54 PM CDT Pulse 72 06/10/2024 1:54 PM CDT Temperature 36.1 C (97 F) 06/10/2024 1:54 PM CDT Respiratory Rate 15 06/10/2024 1:54 PM CDT Oxygen Saturation 99% 06/10/2024 1:54 PM CDT Inhaled Oxygen Concentration - - Weight 80.7 kg (178 lb) 06/10/2024 1:54 PM CDT Height 160 cm (5' 3 ) 06/10/2024 1:54 PM CDT Body Mass Index 31.53 06/10/2024 1:54 PM CDT documented in this encounter Progress Notes * Rob Tong MD - 06/10/2024 1:27 PM CDT Hematology-oncology consult Note Requesting Physician Orlando Balbuena MD Primary Care Physician No primary care provider on file. Problem list There is no problem list on file for this patient. Previous TREATMENT ? Measurable Disease ? Reason for Visit Jayda [place] is a 74 y.o. 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 Currently she is on Lyrica. She was referred to me for elevated free kappa light chain studies and hypogammaglobulinemia. She denies any bone pain other than bilateral knee arthralgia. She has gained 5 pound weight. Denies any chest pain and shortness of breath. No bleeding and bruising. Her labs from July 2023 showed free kappa light chain of 25.4 with ratio 1.68. Serum immunofixation showed normal pattern. She denies any other complaints. Past Medical History Past Medical History: Diagnosis Date Asthma Hyperlipidemia Hypertension Malignant neoplasm (CMS/HCC) Surgical History Past Surgical History: Procedure Laterality Date HX CARPAL TUNNEL RELEASE Right HX CATARACT REMOVAL HX FOOT SURGERY Multiple HX HYSTERECTOMY HX KNEE ARTHROSCOPY W/ MENISCAL REPAIR Right Medications Current Outpatient Medications Medication Sig Dispense Refill albuterol sulfate HFA 90 mcg/actuation aerosol inhaler Take 2 Puffs by inhalation 4 times daily as needed. Irbesartan (AVAPRO) 300 mg tablet Take 300 mg by mouth daily. esomeprazole (NexIUM) 40 mg Capsule, Delayed Release(E.C.) Take 40 mg by mouth daily before breakfast. montelukast (SINGULAIR) 10 mg tablet Take 10 mg by mouth daily. mometasone/formoterol (DULERA INHALATION) Take by inhalation 2 times daily. pregabalin (LYRICA) 50 mg Capsule Take 50 mg by mouth daily at bedtime. atenoloL (TENORMIN) 50 mg tablet Take 50 mg by mouth 2 times daily. cetirizine (ZyrTEC) 10 mg tablet Take 10 mg by mouth daily. aspirin (ECOTRIN EC) 81 mg Tablet, Delayed Release (E.C.) Take 81 mg by mouth daily. atorvastatin (LIPITOR) 10 mg tablet Take 10 mg by mouth daily. No current facility-administered medications for this visit. Allergies Allergies Allergen Reactions Fluticasone Propion-Salmeterol Swelling Hydrocodone-Acetaminophen Itching Oxycodone Itching Itching Sulfa (Sulfonamide Antibiotics) Nausea and Vomiting Stomach/GI Upset Immunizations: There is no immunization history on file for this patient. Family History Family History Problem Relation Name Age of Onset Heart Disease Father Heart Disease Mother Ovarian Cancer Mother Melanoma Brother Heart Disease Brother No Known Problems Sister No Known Problems Child Social History Social History Tobacco Use Smoking status: Never Smokeless tobacco: Never Substance Use Topics Alcohol use: Yes Comment: occasionally Review of Systems Constitutional: Patient did not mention fever; no night sweats; no anorexia; no weight loss; no fatique NEENT: Patient did not mention headache; no change in vision; no change in hearing; no sore throat;no dysphagia Respiratory: Patient did not mention shortness of breath; no pleuritic chest pain; no cough; no hemoptysis Cardiac: Patient did not mention cardiac-like chest pain; no palpitations; no orthopnea; no PND; noDOE Breasts: Patient did not mention tenderness; no masses GI: Patient did not mention abdominal pain; no nausea; no vomiting; no diarrhea; no hematochezia; no melena : Patient did not mention dysuria; no frequency; no hesitancy; no hematuria BOOKKEEPING ASSISTANT: Musculosketetal: Patient did not mention bone pain; bilateral knee arthralgia arthralgia; no joint swelling; no myalgia; Skin: Patient did not mention pruritis; no rash; no petechiae; no ecchymoses Endocrine: Patient did not mention polydipsia; no polyuria; no unusual weight gain Neuro: Patient did not mention headache; no change in vision; bilateral upper and lower extremity neuropathy; no muscle weakness; no confusion; no seizures Psych: Patient did not mention anxiety; no depression; Physical Exam Vitals: As per nursing note Constitutional: Well developed, well nourished, no acute distress, non-toxic appearance Teeth and gum. No signs of infection or swelling. Eyes: PERRL, conjunctiva normal HEENT: Atraumatic, external ears normal, nose normal, oropharynx moist, no pharyngeal exudates. no sinus tenderness Neck- normal range of motion, no tenderness, supple Respiratory: No respiratory distress, normal breath sounds, no rales, no wheezing Breasts: Symmetric, No masses, No nipple discharge. Cardiovascular: Normal rate, normal rhythm, no murmurs, no gallops, no rubs GI: Soft, nondistended, normal bowel sounds, nontender, no splenomegaly, no hepatomegaly, no mass, no rebound, no guarding : No costovertebral angle tenderness Musculoskeletal: No edema, no tenderness, no deformities. Back- no tenderness Integument: Well hydrated, no rash, Digits and nails inspection normal Lymphatic: No lymphadenopathy noted Neurologic: Alert & oriented x 3, CN 2-12 normal, normal motor function, normal sensory function, no focal deficits noted Psychiatric: Speech and behavior appropriate ? labs No results found for this or any previous visit (from the past 24 hours). Labs from July 2023 showed kappa light chain 25.4 lambda light chain 15.1 ratio 1.68 serum immunofixation showed normal pattern. Labs from February 2024 showed hemoglobin 11.8 creatinine 1.39 GFR 41 calcium 9.6 Pathology ? Imaging & Other Studies Performance Status? Assessment / Plan: ? Plasma cell disorder. Patient is a pleasant 74-year-old female with history of chronic kidney disease, hypertension, hyperlipidemia and idiopathic peripheral neuropathy involving bilateral upper and lower extremities diagnosed 22 years ago. She is currently on Lyrica. She is complaining of bilateral knee arthralgia. Denies any weight loss. 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 She denies any frequent infections. I have reviewed the labs that showed elevated kappa light chain with elevated serum kappa and lambda light chain ratio. I will order complete workup for multiple myeloma that would include CBC with differential, CMP, serum protein electrophoresis with immunofixation, quantitative immunoglobulin and serum free light chain studies. Based on the initial results we will discuss bone marrow aspiration and biopsy and skeletal survey. I will plan to see her back in 3 to 4 weeks to discuss findings and further recommendation. Chronic kidney stage III disease. She will follow with Dr. Balbuena. Hypertension. Patient is on Avapro. Peripheral neuropathy. Patient is on pregabalin. Hyperlipidemia. She is on Lipitor. Thank you very much for allowing me to participate in Jayda Lindsey's evaluation and management. Please feel free to contact if I can be of any further assistance in your patient???s care requiring hematology or oncology evaluation. Sincerely, ? ? Rob Tong M.D. cell TOBACCO COUNSELING She is not a tobacco/nicotine user. Rob Tong MD ,06/10/2024 2:22 PM ? Total time spent 60 minutes, two third of the total time spent counseling patient [id number]. CC:?Orlando Balbuena MD documented in this encounter Plan of Treatment Upcoming Encounters Date Type Department Care Team (Late st Contact Info) Description 07/03/2024 11:00 AM CDT Office Visit [facility] Oncology and Hemat[facility] [address] [place] [address] Rob Tong MD [address] [place] [address] Scheduled Orders Name Type Priority Associated Diagnoses Orde r Schedule CBC WITH DIFFERENTIAL Lab Stat Plasma cell disorder Expected: 06/10/2024, Expires: 06/10/2025 COMPREHENSIVE METABOLIC PANEL Lab Stat Plasma cell disorder Expected: 06/10/2024, Expires: 06/10/2025 IMMUNOGLOBULINS IGG IGA IGM Lab Routine Plasma cell disorder Expected: 06/10/2024, Expires: 06/10/2025 KAPPA/LAMBDA, FREE LIGHT CHAINS Lab Routine Plasma cell disorder Expected: 06/10/2024, Expires: 06/10/2025 PROTEIN ELECTROPHORESIS W/REFLEX,SERUM Lab Routine Plasma cell disorder Expected: 06/10/2024, Expires: 06/10/2025 documented as of this encounter Visit Diagnoses Diagnosis Plasma cell disorder- Primary Other specified disease of white blood cells documented in this encounter
--- OUTSIDE RECORDS SUMMARY | 2024-06-10 15:20 | XMS_ITS | Referral Summary ---
Author Organization [facility] [address] [facility] [address] [facility] Address [address] [place] [address] Care Team Providers Care Exceptional Children Teacher Name Role Phone Kate Ybarra MD Primary Care Provider [phone] Encounters Date Type Department Care Team Description 04/18/2024 1:00 PM CDT Office Visit [facility] Orthopedic and Sports Medicine [address] [place] [address] Nakia Goddard PA Saphenous neuralgia, right (Primary Dx); Saphenous neuralgia, left; Chronic pain of both lower extremities; Neuropathy involving both lower extremities 04/02/2024 3:00 PM NEWS CONTENT SPECIALIST Office Visit [facility] Allergy and Immunology [address] [place] [address] Evon Villeda MD PhD Allergic conjunctivitis of both eyes (Primary Dx); Allergic rhinitis, unspecified seasonality, unspecified trigger 03/26/2024 10:30 AM NEWS CONTENT SPECIALIST Office Visit [facility] Cardiology [address] [place] [address] Saadia He NP Coronary artery calcification seen on CAT scan (Primary Dx); Tachycardia; Renovascular hypertension from Last 3 Months Allergies Active Allergy Reactions Criticality Noted Date Comments Fluticasone Unknown 11/24/2014 Fluticasone Propion-Salmeterol Swollen tongue High 04/03/2018 Hydrocodone Itching Low 11/24/2014 Itching Naproxen Headache Low 04/03/2018 Oxycodone Itching Low 11/24/2014 Itching Salmeterol Unknown 11/24/2014 Sulfa Nausea & Vomiting Low 04/03/2018 Sulfa (Sulfonamide Antibiotics) Stomach upset,Nausea & Vomiting Low 01/07/2016 Stomach/GI Upset Tiotropium [place] Swollen tongue High 04/03/2018 Medications albuterol HFA [...] on file Legal Sex Female 7:52 AM NEWS CONTENT SPECIALIST Gender Identity Not on file Sexual Orientation Not on file Last Filed Vital Signs Vital Sign Reading Time Taken Comments Blood Pressure 128/74 04/18/2024 12:55 PM CDT Pulse 82 04/18/2024 12:55 PM CDT Temperature 36.9 C (98.4 F) 04/02/2024 2:52 PM NEWS CONTENT SPECIALIST Respiratory Rate 18 04/02/2024 2:52 PM NEWS CONTENT SPECIALIST Oxygen Saturation 96% 04/02/2024 2:52 PM NEWS CONTENT SPECIALIST Inhaled Oxygen Concentration - - Weight 79.4 kg (175 lb) 04/18/2024 12:55 PM CDT Height 160 cm (5' 3 ) 04/18/2024 12:55 PM CDT Body Mass Index 31 04/18/2024 12:55 PM CDT Plan of Treatment Not on file Insurance [facility] MEDIC[facility] Address: [address] [address] [place] [address] [facility] Address: [address] [address] [place] [address] Care Teams Exceptional Children Teacher Relationship Specialty Start Date End Date Kate Ybarra MD [address] [place] [address] PCP - General Family Medicine 09/27/23
--- OUTSIDE RECORDS SUMMARY | 2024-06-10 15:20 | XMS_ITS | Clinical Summary ---
Author Organization [facility] Address [address] [place] [address] Care Team Providers Care Assembler Small Products Name Role Phone Vikram Balderas DO Primary Care Provider [phone] Source Comments [facility],non-owned Affiliates and Associated Physician Practices is amultiple site organization consisting of ambulatory clinics and hospital sitesin [place], [place] and [place]. This disclosure is being madepursuant to the Care Everywhere program and may not contain all information available regarding this patient. Last updated 17.[facility] [employer] Social History Tobacco Use Types Packs/Day Years Used Date Smoking Tobacco: Never Assessed Comments Unknown Sex and Gender Information Value Date Recorded Sex Assigned at Not on file Legal Sex Female 6:36 AM PUBLIC RELATIONS SUPERVISOR Gender Identity Not on file Sexual Orientation [...] of 2) 02/23/2002 COVID-19 VACCINE (1 - 2024- season) 2023 DEPRESSION SCREENING 02/07/2024 INFLUENZA VACCINE (Season Ended) 2024 11/27/2017, 02/17/2017, [...] patient's age to complete this topic Insurance [employer] UHC MANAGED MEDICARE ADV [employer] GENERIC DEPT OF LABOR Care Teams Assembler Small Products Relationship Specialty Start Date End Date Vikram Balderas DO PCP - General Internal Medicine 12/11/19
--- OUTSIDE RECORDS SUMMARY | 2024-06-10 15:20 | XMS_ITS | Clinical Summary ---
Author Organization [facility] Address [address] [place] [id number] Phone Care Team Providers Care Head Buyer Tobacco Name Role Phone Vikram Balderas Primary Care Provider [phone] Allergies Active Allergy Reactions Criticality Noted Date Comments Acetaminophen 11/24/2014 Fluticasone-Salmeterol Epinephrine 11/24/2014 Fluticasone 11/24/2014 Hydrocodone 11/24/2014 Hydrocodone-Acetaminophen Naproxen Oxycodone 11/24/2014 Oxycodone Hcl Salmeterol 11/24/2014 Tiotropium [place] Monohydrate Sulfa Antibiotics Medications atenolol (TENORMIN) 50 MG tablet 1 bid 0 04/05/2018 Active esomeprazole (NEXIUM) [address] capsule 1 daily 0 04/09/2018 Active albuterol HFA (PROAIR HFA) 108 (90 Base) MCG/ACT inhaler 1 bid 0 04/05/2018 Act andrea montelukast (SINGULAIR) 10 MG tablet 1 dailhy [...] itis 04/09/2018 Vitamin D deficiency 04/09/2018 Immunizations Immunization Administration Dates Next Due Fluzone High-Dose 11/22/2019 Hepatitis B 03/23/2012,10/25/2011,09/21/2011 Influenza (IM) Preservative Free 02/17/2017,12/0 06/2015,11/05/2014 Influenza Split High Dose Pr eservative Free [...] oz pur e alcohol) Alcoholic Drinks/day: occ Comments Unknown Sex and Gender Information Value Date Recorded Sex Assigned at Not on file Legal Sex Female 8:44 AM [facility] Gender Identity Not on file Sexual Orientation [...] Medium Risk (1 of 4 - PCV) 02/23/2002 Influenza Vaccine (Season Ended) 2024 11/20/2020, 02/17/2017, 01/11/2016, Additional history exists Insurance [employer] MEDICARE Care Teams Head Buyer Tobacco Relationship Specialty Start Date End Date Vikram Balderas DO [address] [place] [address] PCP - General Internal Medicine 05/23/18
--- OUTSIDE RECORDS SUMMARY | 2024-06-10 15:20 | XMS_ITS | Clinical Summary ---
Author Organization [facility] Address [address] [place] [id number] Care Team Providers Care Control Systems Drafting Officer Name Role Phone Vikram Balderas DO Primary Care Provider [phone] Allergies Active Allergy Reactions Criticality Noted Date [...] Comments Blood Pressure 118/66 12/19/2018 1:00 PM PRINT PRODUCER Pulse 64 12/19/2018 1:00 PM PRINT PRODUCER Temperature 36.4 C (97.6 F) 12/19/2018 12:46 PM PRINT PRODUCER Respiratory Rate 16 12/19/2018 1:00 PM PRINT PRODUCER Oxygen Saturation 100% 12/19/2018 1:00 PM PRINT PRODUCER Inhaled Oxygen Concentration - - Weight 72.6 kg (160 lb) 12/19/2018 10:25 AM PRINT PRODUCER Height 162.6 cm (5' 4 ) 12/19/2018 10:25 AM PRINT PRODUCER Body Mass Index 27.46 12/19/2018 10:25 AM PRINT PRODUCER Plan of Treatment Health Maintenance Due Date Last Done Comments Colorectal Cancer Screening Colonoscopy (10 Years) 1950 Hepatitis C 02/23/1970 DTaP, Tdap and Td Vaccines ( 1 - Tdap) 02/23/1971 Mammogram Screening 1992 Pneumococcal Vaccine: 50+ Ye ars (1 of 1 - PCV) 02/23/2002 Zoster Vaccines (1 of 2) 02/23/2002 Dexa Scan (General) 02/23/2017 COVID-19 Vaccine ( - 2023-2 5 [...] to complete this topic Insurance Care Teams Control Systems Drafting Officer Relationship Specialty Start Date End Date Vikram Balderas DO [address] [place] [address] PCP - General INTERNAL MEDICINE 12/17/18
--- OUTSIDE RECORDS SUMMARY | 2024-06-10 15:21 | XMS_ITS | Clinical Summary ---
Author Organization [facility] Address [address] [place] [address] Care Team Providers Care Licensing Worker Name Role Phone Unavailable Primary Care Provider Unavailabl e Allergies Active Allergy Reactions Criticality Noted Date Comments Fluticasone Propion-Salmeterol Swelling High 04/03/2018 Hydrocodone-Acetaminoph en Itching Low 04/03/2018 Oxycodone Itching Low 11/24/2014 Itching Sulfa (Sulfonamide Antibiotics) Nausea and Vomiting Low 01/07/2016 Stomach/GI Upset Medications pregabalin (LYRICA) 50 mg Capsule Take 50 mg by mouth daily at bedtime. Active albuterol sulfate HFA 90 mcg/actuation aerosol inhaler Take 2 Puffs by inhalation 4 times daily as needed. Active atenoloL (TENORMIN) 50 mg tablet Take 50 mg by mouth 2 times daily. Active Irbesartan (AVAPRO) 300 mg tablet Take 300 mg by mouth daily. Active esomeprazole (NexIUM) 40 mg Capsule, Delayed Release(E.C.) Take 40 mg by mouth daily before breakfast. Active cetirizine (ZyrTEC) 10 mg tablet Take 10 mg by mouth daily. Active aspirin (ECOTRIN EC) 81 mg Tablet, Delayed Release (E.C.) Take 81 mg by mouth daily. Active montelukast (SINGULAIR) 10 mg tablet Take 10 mg by mouth daily. Active atorvastatin (LIPITOR) 10 mg tablet Take 10 mg by mouth daily. Active mometasone/form oterol (DULERA INHALATION) Take by inhalation 2 times daily. Active Active Problems No known active problems Encounters Date Type Department Care Team Description 06/10/2024 1:30 PM CDT Office Visit [facility] Oncology and Hematology - [place] [address] [place] [address] Rob Tong MD Plasma cell disorder (Primary Dx) from Last 3 Months Family History Medical History Relation Name Comments Melanoma Brother 1 Heart Disease Brother 2 No Known Problems Child Heart Disease Father Heart Disease Mother Ovarian Cancer Mother No Known Problems Sister Relation Name Status Comments Brother 1 Brother 2 Alive Child Alive Father Mother Sister Social History Tobacco Use Types Packs/Day Years Used Date Smoking Tobacco: Never Smokeless Tobacco: Never Alcohol Use Standard Drinks/Week Comments Yes 0 (1 standard drink = 0.6 oz pur e alcohol) occasionally Comments Unknown Sex and Gender Information Value Date Recorded Sex Assigned at Not on file Legal Sex Female 3:18 PM INFORMATION ARCHITECT Gender Identity Not on file Sexual Orientation [...] Mass Index 31.53 06/10/2024 1:54 PM CDT Plan of Treatment Upcoming Encounters Date Type Department Care Team (Late st Contact Info) Description 07/03/2024 11:00 AM CDT Office Visit [facility] Oncology and Hematology - [place] [address] [place] [address] Rob Tong MD [address] [place] [address] Health Maintenance Due Date Last Done Comments BREAST CANCER SCREENING 1992 COLORECTAL SCREENING 02/23/1997 Colorectal Cancer Screening 02/23/1997 FIT-DNA Q 3 years 02/23/1997 FIT/FOBT Q 1 year 02/23/1997 Flex Sig/CT Colonography Q 5 years 02/23/1997 PNEUMOCOCCAL VACCINE 50+ YEA RS (1 of 1 - PCV) 02/23/2002 08/20/2020, 08/02/2005 ZOSTER VACCINE (2 of 3) 08/23/2012 06/28/2012 OSTEOPOROSIS SCREENING 02/23/2017 INFLUENZA VACCINE (#1) 2023 , 11/27/2017, 02/17/2017, Additional history exists Medicare Advantage ([place]) Preventative Visit/Annual Wellness Visit 02/07/2024 DTAP/TDAP/TD VACCINES (2 - T d or Tdap) 11/05/2024 11/05/2014 RSV VACCINE (60+ or ) (1 - 1-dose 75+ series) 02/23/2027 Insurance [facility] [address] [address]
[2024-06-10 16:34] LABS: Alanine Aminotransferase 31 U/L (6-35); Albumin Level 4.4 g/dL (3.5-5.1); Alkaline Phosphatase 107 U/L (38-126); Anion Gap 8 mmol/L (4-12); Aspartate Amino Transferase 52 U/L (14-36); Blood Urea Nitrogen 20 mg/dL (7-17); Calcium 9.7 mg/dL (8.4-10.2); Carbon Dioxide 24 mmol/L (22-30); Chloride 103 mmol/L (98-107); Estimated Glomerular Filt Rate 32; Glucose 97 mg/dL (65-110); Potassium 4.3 mmol/L (3.4-5.0); Sodium 135 mmol/L (137-145)
[2024-06-10 16:42] LABS: Immunoglobulin A 143 mg/dL (70-400); Immunoglobulin G 833 mg/dL (700-1600); Immunoglobulin M 61 mg/dL (40-230)
[2024-06-12 02:18] LABS: Protein, Total 6.6 g/dL (6.1-8.1)
[2024-06-12 11:24] LABS: Lambda Light Chain 15.8 mg/L (5.7-26.3)
[2024-06-13 10:28] LABS: Albumin 4.1 g/dL (3.8-4.8); Alpha 1 Globulin 0.2 g/dL (0.2-0.3); Alpha 2 Globulin 0.7 g/dL (0.5-0.9); Beta 1 Globulin 0.4 g/dL (0.4-0.6); Gamma Globulin 0.8 g/dL (0.8-1.7)
== END 2024-06-10 14:43 | disposition home or self-care (01) ==
PROVIDERS: PCP Obstetrics & Gynecology; Visit Provider Internal Medicine Hematology & Oncology
DX: D72.9 Disorder of white blood cells, unspecified (principal)
CPT/HCPCS: 36415; 80053; 82784; 83883; 84155; 84165; 85025

== ENCOUNTER 2024-10-02 09:22 | Outpatient (CLI) | payer MEDICARE, SELFPAY ==
--- OUTSIDE RECORDS SUMMARY | 2024-10-02 09:36 | XMS_ITS | Clinical Summary ---
Author Organization [place] [id number] Address [address] [place] [address] Care Team Providers Care Nuclear Engineer Name Role Phone Kate Ybarra MD Primary Care Provider [phone] Allergies Active Allergy Reactions Criticality Noted Date Comments Fluticasone Unknown 11/24/2014 Fluticasone Propion-Salmeterol Swollen tongue High 04/03/2018 Hydrocodone Itching Low 11/24/2014 Itching Naproxen Headache Low 04/03/2018 Oxycodone Itching Low 11/24/2014 Itching Salmeterol Unknown 11/24/2014 Sulfa Nausea & Vomiting Low 04/03/2018 Sulfa (Sulfonamide Antibiotics) Stomach upset,Nausea & Vomiting Low 01/07/2016 Stomach/GI Upset Tiotropium [place] Swollen tongue High 04/03/2018 Medications albuterol HFA [...] as directed 30 mL 3 5 Active Additional Information Patient not taking.Reported on 07/30/2024 fluticasone propionate (FLONASE) 50 mcg/actuation nasal sprayIndications :Allergic rhinitis, unspecified seasonality, unspecified trigger Administer 1 spray into each nostril 2 (two) times a day 16 g 3 5 Active Active Problems Problem Noted Date Diagnosed Date Primary osteoarthritis of both knees 08/10/2024 Assessment & Plan (09/15/2024 11:01 PM CDT): Assessment & Plan (08/10/2024 7:30 AM CDT): Neuropathy involving both lower extremities 06/2024 Assessment & Plan (08/10/2024 7:30 AM CDT): Chronic pain of both knees 08/10/2024 Assessment & Plan (08/10/2024 7:30 AM CDT): Moderate persistent asthma, uncomplicated 2023 Hypertension 09/27/2023 Hyperlipidemia 09/27/2023 Coronary artery calcification seen on CAT scan 0 09/27/2023 Gastro-esophageal reflux disease without esophag itis 04/09/2018 Polyneuropathy 04/09/2018 Stage 3a chronic kidney disease 04/09/2018 Encounters Date Type Department Care Team Description 09/03/2024 10:15 AM CDT Office Visit [facility] Orthopedic and Sports Medicine [address] [place] [phone] Nakia Goddard PA Primary osteoarthritis of both knees (Primary Dx) 07/30/2024 10:15 AM CDT Office Visit [facility] Orthopedic and Sports Medicine [address] [place] [phone] Nakia Goddard PA Primary osteoarthritis of both knees (Primary Dx); Neuropathy involving both lower extremities; Chronic pain of both knees from Last 3 Months Social History Tobacco Use Types Packs/Day Years Used Date Smoking Tobacco: Never Passive Smoke Exposure: Never Smokeless Tobacco: Never Tobacco Cessation:Counseling Given: No AUDIT-C Answer Date Recorded Q1: How often do you have a drink containing alc ohol? 2-4 times a month 07/30/2024 Average Number of Drinks Not on file 025 Frequency of Binge Drinking Not on file 07/08 Comments Unknown Sex and Gender Information Value Date Recorded Sex Assigned at Not on file Legal Sex Female 7:52 AM CONTRACTS LAW PROFESSOR Gender Identity Not on file Sexual Orientation Not on file Obstetrics History Last Filed Vital Signs Vital Sign Reading Time Taken Comments Blood Pressure 133/72 09/03/2024 10:20 AM CDT Pulse 71 09/03/2024 10:20 AM CDT Temperature 36.9 C (98.4 F) 04/02/2024 2:52 PM CONTRACTS LAW PROFESSOR Respiratory Rate 18 04/02/2024 2:52 PM CONTRACTS LAW PROFESSOR Oxygen Saturation 96% 04/02/2024 2:52 PM CONTRACTS LAW PROFESSOR Inhaled Oxygen Concentration - - Weight 79.4 kg (175 lb) 09/03/2024 10:20 AM CDT Height 160 cm (5' 3) 09/03/2024 10:20 AM CDT Body Mass Index 31 09/03/2024 10:20 AM CDT Plan of Treatment Health Maintenance Due Date Last Done Comments Breast Cancer Screening-Mammogram 1950 Colon Cancer Screening-Colonoscopy 1950 Depression Screening 1950 Fall Risk Assessment 1950 Hepatitis C Screening 1950 Osteoporosis Screening-Bone Density Scan 1950 Zoster Vaccine (2 of 3) 08/23/2012 06/28/2012 Well Visit 65+ 02/23/2017 Pneumococcal vaccine 65+ (2 of 2 - PPSV23, PCV20, or PCV21) 10/15/2020 08/20/2020, 08/02/2005 Influenza Vaccine (#1) 2024 , 12/09/2018, 11/27/2017, Additional history exists DTaP/Tdap/Td Vaccine (2 - Td or Tdap) 11/05/2024 11/05/2014 Hepatitis B Screening Completed 03/23/2012 , 10/25/2011, 09/21/2011 Procedures Procedure Name Priority Date/Time Associated Diagnosis Comments NM ARTHROCENTESIS ASPIR&/INJ MAJOR JT/BURSA W/O US Routine 07/30/2024 10:15 AM CDT Primary osteoarthritis of both knees from Last 3 Months Results * NM ARTHROCENTESIS ASPIR&/INJ MAJOR JT/BURSA W/O US (07/30/2024 10:15 AM CDT) Narrative Nakia Goddard PA - 07/30/2024 10:15 AM CDT Nakia Goddard PA 08/10/2024 7:30 AM Large Joint (Hip, Knee, Shoulder) Injection: bilateral knee Performed by: Nakia Goddard PA Authorized by: Nakia Goddard PA Large Joint Injection/Aspiration: Consent Given by: Patient Site marked: the procedure site was marked Timeout: prior to procedure the correct patient, procedure, and site was verified Verbal consent obtained: Yes Supporting Documentation: Indications: Pain Procedure Details: Location: Knee Site: Bilateral knee Prep: patient was prepped and draped in usual sterile fashion Needle Size: 22 G Approach: Anterolateral Ultrasound guided: No Fluroscopic guidance: No Medications Right Large Joint Injection: 80 mg methylPREDNISolone acetate 80 mg/mL; 3 mL lidocaine 20 mg/mL (2 %) Medications Left Large Joint Injection: 80 mg methylPREDNISolone acetate 80 mg/mL; 3 mL lidocaine 20 mg/mL (2 %) Patient tolerance: Patient tolerated the procedure well with no immediate complications Nakia DENISE IN CLINIC/BEDSIDE ORDER TRACI Final Result from Last 3 Months Insurance [facility] MEDIC[facility] Address: [address] [address] [place] [address] [facility]IC[facility] Address: [facility] [address] [place] [address] Care Teams Nuclear Engineer Relationship Specialty Start Date End Date Kate Ybarra MD PCP - General Family Medicine 09/27/23
--- OUTSIDE RECORDS SUMMARY | 2024-10-02 09:36 | XMS_ITS | Clinical Summary ---
Author Organization [facility] Address [address] [place] [phone] Phone Care Team Providers Care Feed House Supervisor Name Role Phone Vikram Balderas Primary Care Provider Allergies Active Allergy Reactions Criticality Noted Date Comments Acetaminophen 11/24/2014 Fluticasone-Salmeterol Epinephrine 11/24/2014 Fluticasone 11/24/2014 Hydrocodone 11/24/2014 Hydrocodone-Acetaminophen Naproxen Oxycodone 11/24/2014 Oxycodone Hcl Salmeterol 11/24/2014 Tiotropium [place] Monohydrate Sulfa Antibiotics Medications atenolol (TENORMIN) 50 [...] on file Legal Sex Female 8:[address] [facility] Gender Identity Not on file Sexual [...] 11:16 AM CDT Height 165.1 cm (5' 5) 08/25/2021 11:16 AM CDT Body Mass Index 28.29 08/25/2021 11:16 AM CDT Plan of Treatment Health Maintenance Due Date Last Done Comments Pneumococcal PPSV23/PCV13 65 + Years / Low and Medium Risk (1 of 2 - PCV) 02/23/2002 Influenza Vaccine (#1) 2024 1, 02/17/2017, 01/11/2016, Additional history exists Insurance [facility] Care Teams Feed House Supervisor Relationship Specialty Start Date End Date Vikram Balderas DO [address] [place] [address] PCP - General Internal Medicine 05/23/18
--- OUTSIDE RECORDS SUMMARY | 2024-10-02 09:36 | XMS_ITS | Clinical Summary ---
Author Organization [facility] Address [address] [place] [address] Care Team Providers Care Machine Brusher Name Role Phone Unavailable Primary Care Provider [...] Encounters Date Type Department Care Team Description 08/21/2024 External Device Data STL ABSTRACTION Provider, Abstract 08/20/2024 External Device Data STL ABSTRACTION Provider, Abstract 08/06/2024 Orders Only [facility] Oncology [facility] Hematology [facility] [address] [place] [address] Rob Tong MD 07/23/2024 External Device Data STL ABSTRACTION Provider, Abstract 07/03/2024 11:00 AM CDT Office Visit [facility] Oncology and Hematology [place] [address] [place] [address] Rob Tong MD Plasma cell disorder (Primary Dx) 07/02/2024 External Device Data STL ABSTRACTION Provider, Abstract from Last 3 Months Family History Medical [...] Date Smoking Tobacco: Never Smokeless Tobacco: Never Tobacco Cessation:Counseling Given: Not Answered Alcohol Use Standard Drinks/Week Comments Yes 0 (1 standard drink = 0.6 oz pur e alcohol) occasionally Comments Unknown Sex and Gender Information Value Date Recorded Sex Assigned at Not on file Legal Sex Female 3:18 PM TREASURY ASSOCIATE Gender Identity Not on file Sexual Orientation Not on file Last Filed Vital Signs Vital Sign Reading Time Taken Comments Blood Pressure 109/58 07/03/2024 11:00 AM CDT Pulse 70 07/03/2024 11:00 AM CDT Temperature 35.6 C (96.1 F) 07/03/2024 11:00 AM CDT Respiratory Rate 15 07/03/2024 11:0 0 AM CDT Oxygen Saturation 97% 07/03/2024 11: 00 AM CDT Inhaled Oxygen Concentration - - Weight 80.6 kg (177 lb 12.8 oz) 025 11:00 AM CDT Height 160 cm (5' 3) 06/10/2024 1:54 PM CDT Body Mass Index 31.5 06/10/2024 1:54 PM CDT Plan of Treatment Upcoming Encounters Date Type Department Care Team (Late st Contact Info) Description 04/01/2025 11:00 AM TREASURY ASSOCIATE Office Visit [facility] Oncology and Hematology - [place] [address] [facility] [address] [place] [address] Rob Tong MD [address] [facility] [address] [place] [address] Health Maintenance Due Date Last Done Comments PNEUMOCOCCAL VACCINE 50+ YEA RS (1 of 2 - PCV) 02/23/1971 08/20/2020, 08/02/2005 BREAST CANCER SCREENING 1992 COLORECTAL SCREENING 02/23/1997 Colorectal Cancer Screening 02/23/1997 FIT-DNA Q 3 years 02/23/1997 FIT/FOBT Q 1 year 02/23/1997 Flex Sig/CT Colonography Q 5 years 02/23/1997 RSV VACCINE (60+ or ) (1 - Risk 60-74 years 1-dose series) 2012 ZOSTER VACCINE (2 of 3) 08/23/2012 06/28/2012 OSTEOPOROSIS SCREENING 02/23/2017 INFLUENZA VACCINE (#1) 2024 , 11/27/2017, 02/17/2017, Additional history exists DTAP/TDAP/TD VACCINES (2 - T d or Tdap) 11/05/2024 11/05/2014 Insurance [place] [id number]
[2024-10-02 10:18] LABS: Anion Gap 8 mmol/L (4-12); Blood Urea Nitrogen 24 mg/dL (7-17); Calcium 9.8 mg/dL (8.4-10.2); Carbon Dioxide 22 mmol/L (22-30); Chloride 101 mmol/L (98-107); Estimated Glomerular Filt Rate 38; Glucose 106 mg/dL (65-110); Potassium 4.1 mmol/L (3.4-5.0); Sodium 131 mmol/L (137-145)
== END 2024-10-02 09:23 | disposition home or self-care (01) ==
PROVIDERS: PCP Family Medicine; Visit Provider Student in an Organized Health Care Education/Training Program
DX: E87.1 Hypo-osmolality and hyponatremia (principal)
CPT/HCPCS: 36415; 80048

== ENCOUNTER 2024-11-26 12:19 | Outpatient (CLI) | payer MEDICARE, SELFPAY ==
--- NOTE | ~2024-11-26 | MM_ITS ---
EXAMINATION: MM scrn dario implant BI w cole INDICATION: Asymptomatic, referred for screening mammogram COMPARISON: 08/28/2023 through 03/17/2020 TECHNIQUE: Digital Breast Tomosynthesis CC, MLO, and implant displaced CC and MLO views of Both breasts were obtained with computer-aided detection to assist in interpretation of the study. FINDINGS: There are scattered areas of fibroglandular density. Bilateral breast Retropectoral Silicone implants in place appears intact. No focal dominant mass, architectural distortion, or suspicious microcalcifications are identified. There are no features to suggest malignancy. IMPRESSION: 1. No evidence of malignancy in the breasts. 2. Both breasts Retropectoral Silicone implants appears intact. Recommend continued screening mammography BI-RADS 1, NEGATIVE Reviewed, dictated and finalized at location B.
== END 2024-11-26 12:20 | disposition home or self-care (01) ==
LOC: MICIMG 12:20
PROVIDERS: PCP Obstetrics & Gynecology; Visit Provider Obstetrics & Gynecology
DX: Z12.31 Encounter for screening mammogram for malignant neoplasm of breast (principal); Z98.82 Breast implant status
CPT/HCPCS: 77063; 77067